=== PATIENT | female | born 1945 | race Caucasian/White ===

== ENCOUNTER 2016-08-05 22:44 | Inpatient (IN) | payer MEDICARE, OTHER ==
[~2016-08-05] VITALS: Ht 162.6 cm; Wt 42.9 kg
[~2016-08-05 22:44] MED LIST: DONE23TA PO; DULO30CA45 PO; GABA250S2 PO; LEVO300T5 PO; LISI10TA2 PO; METO-53 PO; OLAN5TAB5 PO; WARF2TAB PO
--- NOTE | 2016-08-05 23:03 | ERD ---
ER Documentation Chief Complaint Date/Time DATE: 08/05/16 TIME: 23:02 Chief Complaint HPI Patient is a 71-year-old female with severe Lewy body dementia [facility] being [facility]lod[facility]. Unable to obtain additional history due to history unavailable from [facility] and patient nonverbal. According to LAURA prater , the only caregiver at the [facility]ci did not speak Kenyan, and was unable to provide documentation of patient's past medical history. ROS All systems reviewed and are negative except as per history of present illness. Medications Home Meds Reported Medications Gabapentin* (Gabapentin* Liq) 250 Mg/5 Ml Solution, 200 MG PO TID 01/31/13 Warfarin Sodium* (Coumadin*) 2 Mg Tablet, 2 MG PO DAILY 01/31/13 Olanzapine* (Zyprexa*) 5 Mg Tablet, 5 MG PO HS 01/31/13 Metoprolol (Lopressor) 50 Mg Tablet, 50 MG PO HS 01/31/13 Lisinopril* (Lisinopril*) 10 Mg Tablet, 40 MG PO DAILY 01/31/13 Levothyroxine Sodium* (Levothyroxine Sodium*) 300 Mcg Tablet, 75 MCG PO DAILY 01/31/13 Donepezil* (Aricept*) 23 Mg Tablet, 10 MG PO DAILY 01/31/13 Duloxetine Hcl* (Cymbalta*) 30 Mg Capsule.dr, 30 MG PO DAILY 01/31/13 Allergies Allergies: Coded Allergies: No Known Allergy (Unverified , 02/02/13) PMhx/Soc Past medical history obtained from prior visit: Atrial fibrillation, Lewy body dementia, hypertension, hypothyroidism Past surgical history: G-tube, hip replacement Social history: Lives in a fci. History of Surgery: Yes (cholecystectomyk, , s/p angioplasty) Anesthesia Reaction: No Hx Neurological Disorder: Yes (PSYCHOSIS, DEPRESSION) Hx Respiratory Disorders: No Hx Cardiac Disorders: Yes (htn) Hx Psychiatric Problems: Yes (PSYCHOSIS, DEPRESSION) Hx Alcohol Use: No Hx Substance Use: No Hx Tobacco Use: No FmHx Unable to obtain Physical Exam Vitals Vital Signs Date Time Temp Pulse Resp B/P Pulse Ox O2 Delivery O2 Flow Rate FiO2 08/06/16 02:20 114 17 119/99 93 Room Air 08/06/16 01:00 87 16 92/72 95 Room Air 08/06/16 00:00 78 14 116/76 98 08/05/16 22:45 97.2 88 18 110/69 100 Physical Exam Const: Nonverbal, makes eye contact Head: Atraumatic Eyes: Normal Conjunctiva, no pallor or icterus ENT: Normal External Ears, Nose and Mouth. Tacky mucous membranes Neck: Full range of motion. Resp: Clear to auscultation bilaterally, no wheezes, no rales Cardio: Regular rate and rhythm, no murmurs Abd: Soft, non tender, non distended. Right-sided subcostal scar. Stoma is crusted and completely closed. Skin: No petechiae or rashes Ext: No cyanosis, or edema Neur: Awake and alert, unable to perform full exam due to patient not following directions Psych: Flat affect Result Diagram: 08/05/16 2335 08/05/16 2335 Results 24 hrs Laboratory Tests Test 08/05/16 23:35 08/06/16 00:05 White Blood Count 7.810^3/ul Red Blood Count 3.8310^6/ul Hemoglobin 13.4g/dl Hematocrit 39.7% Mean Corpuscular Volume 103.7fl Mean Corpuscular Hemoglobin 35.0pg Mean Corpuscular Hemoglobin Concent 33.8g/dl Red Cell Distribution Width 13.3% Platelet Count 64270^3/UL Mean Platelet Volume 13.0fl Neutrophils % 66.0% Lymphocytes % 23.2% Monocytes % 7.2% Eosinophils % 2.4% Basophils % 0.9% Nucleated Red Blood Cells % 0.0/100WBC Neutrophils # 5.210^3/ul Lymphocytes # 1.810^3/ul Monocytes # 0.610^3/ul Eosinophils # 0.210^3/ul Basophils # 0.110^3/ul Nucleated Red Blood Cells # 0.010^3/ul Prothrombin Time 13.2Sec Prothrombin Time Ratio 1.0 INR International Normalized Ratio 1.00 Activated Partial Thromboplast Time 27.2Sec Sodium Level 139mmol/L Potassium Level 3.6mmol/L Chloride Level 103mmol/L Carbon Dioxide Level 32mmol/L Anion Gap 8 Blood Urea Nitrogen 21mg/dl Creatinine 0.65mg/dl Glucose Level 98mg/dl Calcium Level 9.1mg/dl Prealbumin 17.2mg/dl Vitamin B12 Level Pending Urine Color LT. YELLOW Urine Clarity CLEAR Urine pH 7.0 Urine Specific [place] 1.010 Urine Ketones NEGATIVE Urine Nitrite NEGATIVE Urine Bilirubin NEGATIVE Urine Urobilinogen 2.0 E.U./dL Urine Leukocyte Esterase 2+ Urine Microscopic RBC 0-2/HPF Urine Microscopic WBC 10-25/HPF Urine Squamous Epithelial Cells MODERATE Urine Bacteria MANY Urine Yeast MODERATE Urine Hemoglobin NEGATIVE Urine Glucose NEGATIVE% Urine Total Protein NEGATIVE Current Medications Medications (Trade) Dose Ordered Sig/Colten Route PRN Reason Start Time Stop Time Status Last Admin Dose Admin Haloperidol (Haldol) 2 mg ONCE ONCE IV 08/06/16 02:30 08/06/16 02:31 DC 08/06/16 02:20 Procedures/MDM MDM: Patient is a 71-year-old female with fluid body dementia and a gastrostomy tube that was dislodged at an unknown time. The stoma has since closed and I am unable to place a new G-tube in the ER. I will therefore admit the patient for replacement of G-tube. Patient was given IV antibiotics for UTI. There are no signs of sepsis. IV fluids were given. Departure Diagnosis: Primary Impression: Dislodged gastrostomy tube Additional Impression: UTI (urinary tract infection) Indwelling urinary catheter type: unspecified Encounter type: initial encounter Condition: Stable JARED RICHARDS MD Aug 05, 2016 23:03 (Rocephin) 50 ml @ 100 mls/hr ONCE ONCE IVPB 08/06/16 03:00 08/06/16 03:29 DC 08/06/16 03:08 Lorazepam 1 mg 1 mg ONCE ONCE IV 08/06/16 04:30 08/06/16 04:31 DC 08/06/16 04:37 Potassium Chloride/Dextrose/ Sod Cl (D5-1/2ns + KCl 20 Meq) 1,000 ml @ 60 mls/hr [id number] IV 08/06/16 05:03 IV Flush (NS 3 ml) 3 ml PER PROTOCOL IV 08/06/16 05:30 Metoclopramide HCl (Reglan) 10 mg Q6H PRN IV NAUSEA AND/OR VOMITING 08/06/16 05:30 Acetaminophen (Tylenol Tab) 650 mg Q6H PRN PO PAIN LEVEL 1-3 OR FEVER 08/06/16 05:30 Morphine Sulfate (morphine) 2 mg Q4H PRN IV SEVERE PAIN LEVEL 7-10 08/06/16 05:30 Famotidine (Pepcid Iv) 20 mg Q12 IV 08/06/16 09:00 Departure Condition: Stable JARED RICHARDS MD Aug 05, 2016 23:03
[2016-08-05 23:40] LABS: ADD SCAN DIFF NO
[2016-08-05 23:42] LABS: BASOPHIL # 0.1 10^3/ul (0.0-0.1); BASOPHILS % 0.9 % (0.0-2.0); EOSINOPHILS # 0.2 10^3/ul (0.0-0.5); EOSINOPHILS % 2.4 % (0.0-7.0); HEMATOCRIT 39.7 % (37.0-47.0); HEMOGLOBIN 13.4 g/dl (12.0-16.0); LYMPHOCYTES # 1.8 10^3/ul (0.8-2.9); LYMPHOCYTES % 23.2 % (15.0-51.0); MEAN CORPUSCULAR HGB CONC 33.8 g/dl (32.0-37.0); MEAN CORPUSCULAR VOLUME 103.7 fl (82.0-101.0); MONOCYTE # 0.6 10^3/ul (0.3-0.9); MONOCYTES % 7.2 % (0.0-11.0); NEUTROPHIL # 5.2 10^3/ul (1.6-7.5); PLATELET COUNT 181 10^3/UL (140-415); RED BLOOD COUNT 3.83 10^6/ul (4.20-5.40); RED CELL DISTRIBUTION WIDTH 13.3 % (11.5-14.5); WHITE BLOOD COUNT 7.8 10^3/ul (4.8-10.8)
[2016-08-05 23:52] LABS: CALCIUM 9.1 mg/dl (8.4-10.2); CREATININE 0.65 mg/dl (0.44-1.00); PARTIAL THROMBOPLASTIN TIME 27.2 Sec (25.0-35.0); POTASSIUM 3.6 mmol/L (3.5-5.1); PROTIME 13.2 Sec (12.2-14.2)
[2016-08-06] VITALS (8 sets, daily range): BP systolic 125–188; BP diastolic 57–100; PULSE 49–121; RESP 16–20; TEMP 97.8; Ht 162.6 cm; Wt 42.9 kg
[2016-08-06 01:22] LABS: ADD UMIC YES; URINE BILIRUBIN (Dip) NEGATIVE (NEGATIVE); URINE BLOOD (Dip) NEGATIVE (NEGATIVE); URINE COLOR LT. YELLOW (YELLOW); URINE GLUCOSE (Dip) NEGATIVE (NEGATIVE); URINE KETONES (Dip) NEGATIVE (NEGATIVE); URINE LEUKOCYTE ESTERASE (Dip) 2+ (NEGATIVE); URINE NITRITE (Dip) NEGATIVE (NEGATIVE); URINE TOTAL PROTEIN (Dip) NEGATIVE (NEGATIVE); URINE UROBILINOGEN (Dip) 2.0 E.U./dL (0.1-1.0)
[2016-08-06] MEDS ORDERED: HALOPERIDOL 5 MG INJ IV ONE (02:30)
[2016-08-06 02:37] LABS: BACTERIA,URINE MANY
[2016-08-06 02:38] LABS: SQUAMOUS EPITHELIAL CELL,UR MODERATE
[2016-08-06 02:39] LABS: URINE RBCS 0-2 /HPF (0)
--- NOTE | 2016-08-06 02:55 | HP ---
Date/Time of Note Date/Time of Note DATE: 08/06/16 TIME: 02:54 Assessment/Plan VTE Prophylaxis VTE Prophylaxis Intervention: anti-embolic stocking Assessment/Plan Assessment/Plan 1) Protein-Calorie Malnutrition - Resides at [facility], "G-Tube Came Out" , but it appears to have been out for an extended period of time. - Admit toMed Surg - Check Pre-Albumin and Cholesterol to test nutritional status - Dietary Consult - CONSULT: GI - Dr. Chua for g-Tube Placement - field irrigation worker Consult to ensure patient is safe at the [facility] and to get patint' records and notify her next of kin, perhaps there is a DNO or Adanced Directives somewhere. 2) Urinary Tract Infection - Bacteria and Yeast - Rocephin 1 gram IV daily while awaiting culture results. - Diflucan once weekly for 3 to 4 weeks, once GT is back in place 3) Oral Cancer - Find Old records to learn mor about her condition 4) Lewy Body Dementia - Rule out treatable Delirium - add on TSH,Vitamin B12l, RPR HPI/ROS Admit Date/Time Admit Date/Time 08/05/16 0252 Hx of Present Illness Patient is a 71-year-old female with severe Lewy body dementia sent from a residential for G-tube being dislodged. Unable to obtain additional history due to history unavailable from residential and patient nonverbal. According to LAURA prater , the only caregiver at the residential did not speak Kazakh or Georgian, and was unable to provide documentation of patient's past medical history. Hospital records are reviewed to obtain some hsitory. ROS Subjective hx not possible: pt non-verbal PMH/Family/Social Past Medical History Atrial Fibrillation; Lewy Body Dementia; Hypertension: Hypothyroidism; Depression; Psychosis Past Surgical History G-TubePlacement; Hip Replacement; Cholecystectomy; s/p Angioplasty Social History Social history: Lives in a residential. Alcohol Use: none Smoking Status: Never smoker Drug Use: none Exam/Review of Systems Vital Signs Vitals Vital Signs Date Time Temp Pulse Resp B/P Pulse Ox O2 Delivery O2 Flow Rate FiO2 08/06/16 02:20 114 17 119/99 93 Room Air 08/05/16 22:45 97.2 Exam Exam General: Alert, cachectic female, in no acute distress. who recently received Haldol, per RN, to help calm her down Eyes: Sclera White HENT: Normocephalic/Atraumatic, External Ears/Nose Normal, Moout remains open the entire time. Lips and oral ucosa are dry and a bit cracked. Not bleeding. Also, there is a 3cm patch of black tissue/eschar/necroses on the distal inferior aspect of her tongue. Neck: Supple, Trachea Midline Cardiovascular: Normal Rate, Regular Rhythm, Normal S1 and S2, No Murmur, No Extra Sounds. Radial pulse +2/4. No pedal Edema. Pulmonary: Clear to Auscultation Bilaterally, Normal Respiratory Effort, No Rales, Rhonchi or Wheezes Gastrointestinal: Scaphoid abdomen, Normoactive Bowel Sounds, Soft, Non-Tender/ Non-Distended, No Hepatosplenomegaly Appreciated, No Pulsatile Masses Urogenital: Deferred Musculoskeletal: Wasted Muscle and only fair Tone Neurological: CN II - XII Grossly Intact, Non-Focal/moves all 4 extremities Integumentary: Normal Moisture and Temperature, Poor Turgor/Easy/prolonged tenting. No Jaundice, No Rash Lymphatic: No Cervical Lymphadenopathy Psychiatric: Diffiult to assess as patient is non-verbal and recently medcated. Good Eye Contact Labs Result Diagram: 08/05/16 2335 08/05/16 2335 Medications Medications Home Meds Reported Medications Gabapentin* (Gabapentin* Liq) 250 Mg/5 Ml Solution, 200 MG PO TID 01/31/13 Warfarin Sodium* (Coumadin*) 2 Mg Tablet, 2 MG PO DAILY 01/31/13 Olanzapine* (Zyprexa*) 5 Mg Tablet, 5 MG PO HS 01/31/13 Metoprolol (Lopressor) 50 Mg Tablet, 50 MG PO HS 01/31/13 Lisinopril* (Lisinopril*) 10 Mg Tablet, 40 MG PO DAILY 01/31/13 Levothyroxine Sodium* (Levothyroxine Sodium*) 300 Mcg Tablet, 75 MCG PO DAILY 01/31/13 Donepezil* (Aricept*) 23 Mg Tablet, 10 MG PO DAILY 01/31/13 Duloxetine Hcl* (Cymbalta*) 30 Mg Capsule., 30 MG PO NATHANIEL WEINBERG DO Aug 06, 2016 02:55
[2016-08-06] MEDS ORDERED: ACETAMINOPHEN 325 MG TAB PO PRN ×2 (03:00→05:30)
[2016-08-06] MEDS ORDERED: ONDANSETRON 4 MG INJ IV PRN (03:00)
[2016-08-06] MEDS ORDERED: CEFTRIAXONE 1 GM/50 ML (PMX) 50 ML IVPB ONE (03:00)
[2016-08-06] MEDS ORDERED: LORAZEPAM 2 MG INJ IV ONE ×2 (04:30→22:00)
[2016-08-06 04:52] LABS: PREALBUMIN 17.2 mg/dl (17.6-36.0)
[2016-08-06] MEDS ORDERED: METOCLOPRAMIDE 10 MG INJ IV PRN (05:30)
[2016-08-06] MEDS ORDERED: NACL 0.9% 3 ML SYG IV SCH (05:30)
[2016-08-06] MEDS: D5W-0.45 NACL + KCL 20 MEQ 1,000 ML IV SCH ×2 (05:40→23:48)
[2016-08-06] MEDS: FAMOTIDINE 20 MG INJ IV SCH ×2 (09:07→21:12)
[2016-08-06 09:58] LABS: CHOL/HDL RATIO 2.8 RATIO
--- NOTE | 2016-08-06 11:13 | CONS ---
Date/Time of Note Date/Time of Note DATE: 08/06/16 TIME: 10:54 Assessment/Plan Assessment/Plan Additional Assessment/Plan Dysphagia Order Nutrition consult to determine rate and type of G tube feed EGD + PEG Monitor tube feed Q6hrs, hold for residuals greater 150 mL Cleanse site and change dressing daily Lewy Body Dementia Psychosis Management per Primary Hypothyroidism Continue supplementation per primary Hypertension Atrial Fibrillation History of angioplasty Management per primary May benefit from cardiology consult Previously on warfarin Further recommendations depend on clinical course Patient seen in collaboration with Dr. Chua Consultation Date/Type/Reason Admit Date/Time Type of Consultation: Gastroenterology Reason for Consultation Dysphagia, dislodged G-tube Hx of Present Illness Mrs. Evie Russell is a 71-year-old nonverbal woman that [facility] [place] [facility] secondary to dislodgment of G-tube. At bedside patient is profoundly confused and unable to provide concise medical history. Per previous note, patient has history of severe Lewy body dementia, atrial fibrillation on warfarin, hypertension, hypothyroidism on Levoxyl thyroxine, depression, psychosis, status post cholecystectomy, status post hip replacement , status post angioplasty, and status post G-tube placement. Medical record notes atrial fibrillation and warfarin 2 mg p.o. daily but unsure last given. Patient may benefit from cardiology consult. Presently INR 1.0 and PT 13.2. At bedside, incision from the former G-tube is well healed and unsure of exactly how long tube has been dislodged Past Surgical History Past Surgical Hx: angioplasty, cholecystectomy, other (G-tube placement, hip replacement) Social History Alcohol Use: none Smoking Status: Never smoker Drug Use: none Exam/Review of Systems Vital Signs Vitals Vital Signs Date Time Temp Pulse Resp B/P Pulse Ox O2 Delivery O2 Flow Rate FiO2 08/06/16 09:20 98.4 81 18 148/66 90 Room Air Exam Constitutional: Awake, confused, Psych: Confused Head: normocephalic Eyes: EOMI, nl conjunctiva, nl lids ENMT: nl external ears & nose, missing teeth with very dry lips, nl nasal mucosa & septum Respiratory: clear to auscultation, normal air movement Cardiovascular: regular rate and rhythm Gastrointestinal: soft, nontender Musculoskeletal: nl extremities to inspection Neurological: Grossly nonfocal Results Result Diagram: 08/05/16 9285 08/05/16 2335 Results 24 hrs Laboratory Tests Test 08/05/16 23:35 08/06/16 00:05 08/06/16 09:15 White Blood Count 7.8 Red Blood Count 3.83 L Hemoglobin 13.4 Hematocrit 39.7 Mean Corpuscular Volume 103.7 H Mean Corpuscular Hemoglobin 35.0 H Mean Corpuscular Hemoglobin Concent 33.8 Red Cell Distribution Width 13.3 Platelet Count 181 Mean Platelet Volume 13.0 H Neutrophils % 66.0 Lymphocytes % 23.2 Monocytes % 7.2 Eosinophils % 2.4 Basophils % 0.9 Nucleated Red Blood Cells % 0.0 Neutrophils # 5.2 Lymphocytes # 1.8 Monocytes # 0.6 Eosinophils # 0.2 Basophils # 0.1 Nucleated Red Blood Cells # 0.0 Prothrombin Time 13.2 Prothrombin Time Ratio 1.0 INR International Normalized Ratio 1.00 Activated Partial Thromboplast Time 27.2 Sodium Level 139 Potassium Level 3.6 Chloride Level 103 Carbon Dioxide Level 32 H Anion Gap 8 Blood Urea Nitrogen 21 H Creatinine 0.65 Glucose Level 98 Calcium Level 9.1 Prealbumin 17.2 L 16.4 L Vitamin B12 Level 870 Vitamin D 1,25-Dihydroxy 17.1 L Thyroid Stimulating Hormone (TSH) 12.700 H Urine Color LT. YELLOW Urine Clarity CLEAR Urine pH 7.0 Urine Specific [place] 1.010 Urine Ketones NEGATIVE Urine Nitrite NEGATIVE Urine Bilirubin NEGATIVE Urine Urobilinogen 2.0 E.U./dL H Urine Leukocyte Esterase 2+ H Urine Microscopic RBC 0-2 Urine Microscopic WBC 10-25 Urine Squamous Epithelial Cells MODERATE Urine Bacteria MANY Urine Yeast MODERATE Urine Hemoglobin NEGATIVE Urine Glucose NEGATIVE Urine Total Protein NEGATIVE Triglycerides Level 102 Cholesterol Level 132 LDL Cholesterol, Calculated 66 HDL Cholesterol 46 Cholesterol/HDL Ratio 2.8 Medications Medications Current Medications Potassium Chloride/Dextrose/ Sod Cl (D5-1/2ns + KCl 20 Meq) 1,000 ml @ 60 mls/ hr [id number] IV Last administered on 08/06/16t 05:40; Admin Dose 60 MLS/HR; Start 08/06/16 at 05:03 Metoclopramide HCl (Reglan) 10 mg Q6H PRN IV NAUSEA AND/OR VOMITING; Start 08/06 at 05:30 Acetaminophen (Tylenol Tab) 650 mg Q6H PRN PO PAIN LEVEL 1-3 OR FEVER; Start at 05:30 Morphine Sulfate (morphine) 2 mg Q4H PRN IV SEVERE PAIN LEVEL 7-10; Start at 05:30 Famotidine (Pepcid Iv) 20 mg Q12 IV Last administered on 08/06/16t 09:07; Admin Dose 20 MG; Start 08/06/16 at 09:00 LELA SOOD Aug 06, 2016 11:06
--- NOTE | 2016-08-06 16:13 | PN ---
DATE: 08/06/2016 INTERNAL MEDICINE FOLLOW UP Chart reviewed. No significant events. The patient was seen by GI earlier today and is planned to undergo G-tube placement tomorrow. PHYSICAL EXAMINATION: VITAL SIGNS: Blood pressure 148/66, pulse 81, respirations 18, temperature 98.4. Currently saturat ing 98% on room air. HEENT: Pupils are equal and reactive to light. NECK: Supple, no JVD noted, no cervical adenopathy, no carotid bruits heard. LUNGS: Fair breath sounds bilaterally. CARDIOVASCULAR: S1, S2 normal. ABDOMEN: Soft, nontender. No organomegaly or masses noted. EXTREMITIES: No clubbing or cyanosis noted. NEUROLOGIC: No changes. LABORATORY DATA: Sodium 139, potassium 3.6, chloride 103, CO2 32, BUN 21, creatinine 0.65, glucose 98. WBC 7.8, hemoglobin 13.4, hematocrit 39.7, platelets 181. IMPRESSION: 1. Dislodged G-tube. 2. Lewy body dementia. 3. Urinary tract infection. 4. History of oral cancer. RECOMMENDATIONS: 1. Gastrointestinal evaluation appreciated. 2. Patient will undergo G-tube placement tomorrow. 3. Discussed with the staff. Dictated By: KEITH BUITRAGO MD, MA/ROSA Conf#: [id number] DID#: [id number] CC: NATHANIEL BEE MD;*EndCC*
[2016-08-06] MEDS ORDERED: LORAZEPAM 2 MG INJ ONE (21:44)
[2016-08-06 21:46] LABS: ADD SCAN DIFF NO
[2016-08-06 21:47] LABS: BASOPHIL # 0.1 10^3/ul (0.0-0.1); BASOPHILS % 0.7 % (0.0-2.0); EOSINOPHILS # 0.1 10^3/ul (0.0-0.5); EOSINOPHILS % 0.9 % (0.0-7.0); HEMATOCRIT 36.9 % (37.0-47.0); HEMOGLOBIN 12.3 g/dl (12.0-16.0); LYMPHOCYTES # 1.8 10^3/ul (0.8-2.9); LYMPHOCYTES % 20.3 % (15.0-51.0); MEAN CORPUSCULAR HEMOGLOBIN 34.5 pg (29.0-33.0); MEAN CORPUSCULAR HGB CONC 33.3 g/dl (32.0-37.0); MEAN CORPUSCULAR VOLUME 103.4 fl (82.0-101.0); MEAN PLATELET VOLUME 12.1 fl (7.4-10.4); MONOCYTE # 0.6 10^3/ul (0.3-0.9); MONOCYTES % 6.9 % (0.0-11.0); NEUTROPHIL # 6.3 10^3/ul (1.6-7.5); PLATELET COUNT 176 10^3/UL (140-415); RED BLOOD COUNT 3.57 10^6/ul (4.20-5.40); RED CELL DISTRIBUTION WIDTH 13.1 % (11.5-14.5); WHITE BLOOD COUNT 8.9 10^3/ul (4.8-10.8)
[2016-08-06 21:55] LABS: CHLORIDE 103 mmol/L (97-110)
[2016-08-06 21:56] LABS: POTASSIUM 3.4 mmol/L (3.5-5.1); SODIUM 142 mmol/L (135-144)
[2016-08-06 21:58] LABS: CREATININE 0.67 mg/dl (0.44-1.00)
[2016-08-06 21:59] LABS: ANION GAP 13 (8-16); BLOOD UREA NITROGEN 19 mg/dl (7-20); CALCIUM 8.9 mg/dl (8.4-10.2); CARBON DIOXIDE 29 mmol/L (21-31); GLUCOSE 118 mg/dl (70-220); MAGNESIUM 1.9 mg/dl (1.7-2.5)
[2016-08-06 22:08] LABS: B-TYPE NATRIURETIC PEPTIDE 2060 PG/ML (0-125)
[2016-08-06 22:15] LABS: TROPONIN-I < 0.012 ng/ml (0.00-0.12)
--- NOTE | 2016-08-06 23:06 | EN ---
Date/Time of Note Date/Time of Note DATE: 08/06/16 TIME: 23:06 Event Note Medicine Medicine Event Note RAPID RESPONSE TEAM: Called to [employer] at 2101 due to oxygen saturation dropped to 84%. She was placed on a simple mask at 10 LPM and her sat came up to 100%. On my arrival, patient was alert and moving all 4 extremities, sitting up in bed wearing the mask. Her vital signs were 135/61 - 51 - 97.6 - 100%. Glucose = 82. Her HR varied from 70 to 139. Her sat dropped to 89% and we placed her on a Non-Rebreather at 15 LPM. Her hands felt cold, but they were not blue. No central cyanosis. We were able to determine that the Pulse Oximiter was missing every other beat. The Pulse-Ox was measuring 56 BPM while the hear monitor, now in place showed a rate of 117. We tried another pulse ox and an ear probe was not available, so the rRN used a conforming finger probe on the ear lobe. About this time, the ABG anabel was already drawn came back with a pH of 7.53, CO2 33, pO2 360, HCO3 27.1, BE 4.6 when she was on a simple mask, O2 Sat 99%. I ordered a CBC, BMP, BNP, D-Dimer, Mg and Phos and made arrangements to transfer her to [facility]. At 2134, her ear probe demonstrated saturation of 100%. At 2144, she was restless and she was given Ativan 0.5 mg IV. EKG showed A-fib with RVR at 129. I accompanied her to the ICU with plans for Cardizem to be administered. During the entire event, she remained alert and was never cyanotic. I did learn from her daughter, Rosamaria (her name and number were on the board) when I called her to update her on her mom's condition that she had her on Hospice and that she was a DNR and did not want to be intubated. Also, her daughter had no knowledge of any oral cancer. SHe has Lewy Body Dementia and has been deteriorating, significantly over the past 2 months.Rosamaria is 1 of 6 siblings, and is the only one taking care of their mother. Critical Care Time: 35 minutes in responding to, assessing, treating, monitoring and coordinating care of patient. NATHANIEL BEE DO Aug 06, 2016 23:06
[2016-08-07] VITALS (17 sets, daily range): BP systolic 104–174; BP diastolic 58–128; PULSE 77–201; RESP 17–20
[2016-08-07] MEDS: CEFTRIAXONE 1 GM/50 ML (PMX) 50 ML IVPB SCH (02:50)
[2016-08-07 07:37] LABS: ADD SCAN DIFF NO
[2016-08-07 07:42] LABS: BASOPHIL # 0.1 10^3/ul (0.0-0.1); BASOPHILS % 0.7 % (0.0-2.0); EOSINOPHILS # 0.2 10^3/ul (0.0-0.5); EOSINOPHILS % 3.4 % (0.0-7.0); HEMATOCRIT 36.5 % (37.0-47.0); LYMPHOCYTES # 1.4 10^3/ul (0.8-2.9); MEAN CORPUSCULAR HEMOGLOBIN 34.5 pg (29.0-33.0); MEAN CORPUSCULAR HGB CONC 32.9 g/dl (32.0-37.0); MEAN CORPUSCULAR VOLUME 104.9 fl (82.0-101.0); MEAN PLATELET VOLUME 13.4 fl (7.4-10.4); MONOCYTE # 0.5 10^3/ul (0.3-0.9); MONOCYTES % 7.2 % (0.0-11.0); NEUTROPHIL # 4.8 10^3/ul (1.6-7.5); NEUTROPHILS % 68.6 % (39.0-77.0); PLATELET COUNT 156 10^3/UL (140-415); RED BLOOD COUNT 3.48 10^6/ul (4.20-5.40); RED CELL DISTRIBUTION WIDTH 13.4 % (11.5-14.5); WHITE BLOOD COUNT 7.1 10^3/ul (4.8-10.8)
[2016-08-07 07:58] LABS: INR 1.05; PARTIAL THROMBOPLASTIN TIME 28.6 Sec (25.0-35.0); POTASSIUM 3.2 mmol/L (3.5-5.1); PROTIME 13.7 Sec (12.2-14.2); PT RATIO 1.1
[2016-08-07 08:01] LABS: CREATININE 0.6 mg/dl (0.44-1.00)
[2016-08-07 08:02] LABS: CALCIUM 8.6 mg/dl (8.4-10.2)
[2016-08-07 10:23] LABS: AADO2 Arterial 38.2 mmHg (7.0-24.0); Allen Test ACCEPTAB; Arterial Base Excess 4.6 mmol/L (-3.0-3); Arterial COHb 0.3 % (0.0-3.0); Arterial Fraction of Oxyhgb 98.7 % (93.0-99.0); Arterial HCO3 27.1 mmol/L (22.0-26.0); Arterial MetHb 0.4 % (0.0-1.5); Arterial Total Hemglobin 12.9 g/dl (12.0-18.0); MODE MASK - SIMPLE
[2016-08-07] MEDS: LORAZEPAM 2 MG INJ IV PRN (10:54)
[2016-08-07] MEDS: FAMOTIDINE 20 MG INJ IV SCH ×2 (10:54→20:23)
[2016-08-07] MEDS: DILTIAZEM-D5W 125MG/125ML DRIP 125 ML IV SCH ×2 (10:58→20:23)
--- NOTE | 2016-08-07 10:59 | PN ---
Date/Time of Note Date/Time of Note DATE: 08/07/16 TIME: 10:51 Assessment/Plan VTE Prophylaxis VTE Prophylaxis Intervention: SCD's Lines/Catheters IV Catheter Type (from Nrs): Peripheral IV Urinary Cath still in place: Yes Reason Cath still needed: urinary retention Assessment/Plan Chief Complaint/Hosp Course Assessment/Plan: 71F with: 1. Protein-Calorie Malnutrition - Resides at [facility] and [facility], "G-Tube Came Out" , but it appears to have been out for an extended period of time. - f/u Pre-Albumin and Cholesterol to test nutritional status - Dietary Consult - CONSULT: GI - Dr. Chua for g-Tube Placement - pending for this placement - welfare eligibility worker Consult to ensure patient is safe at the [facility] and to get patent's records 2. afib w/RVR - presently not controlled - will start cardizem IV drip, get CV consult, ECHO - monitor INR (takes Coumadin at home) 3. Urinary Tract Infection - Bacteria and Yeast - Rocephin 1 gram IV daily while awaiting culture results. - Diflucan once weekly for 3 to 4 weeks, once GT is back in place 4. Oral Cancer - Find Old records to learn more about her condition 5. Lewy Body Dementia - Rule out treatable Delirium - f/u TSH,Vitamin B12l, RPR - ativan cautiously prn Problems: Subjective 24 Hr Interval Summary Free Text/Dictation Pt transferred to tele after afib w RVR, presently still high HR and altered, trying to get out of bed. Exam/Review of Systems Vital Signs Vitals Vital Signs Date Time Temp Pulse Resp B/P Pulse Ox O2 Delivery O2 Flow Rate FiO2 08/07/16 09:36 195 08/07/16 08:25 Simple Mask 8.0 08/07/16 08:17 99.0 18 132/89 92 Intake and Output 08/06/16 08/06/16 08/07/16 15:00 23:00 07:00 Intake Total 0 ml 710 ml Output Total 700 ml 500 ml Balance -700 ml 210 ml Exam HEENT: Agitated, trying to get out of bed, pupils are equal and reactive to light. NECK: Supple, no JVD noted, no cervical adenopathy, no carotid bruits heard. LUNGS: Fair breath sounds bilaterally. CARDIOVASCULAR: irregularly irregular, tachy ABDOMEN: Soft, nontender. No organomegaly or masses noted. EXTREMITIES: No clubbing or cyanosis noted. NEUROLOGIC: No changes. Results Result Diagram: 08/07/16 0630 08/07/16 0630 Results 24 hrs Laboratory Tests Test 08/06/16 21:10 08/06/16 21:17 08/06/16 21:41 08/07/16 06:30 Bedside Glucose 82 Blood Gas Specimen Source Blood arterial Arterial Blood Date Drawn 08/06/2016 9:15:00 PM Arterial Blood pH (Temp corrected) 7.529 H Arterial Blood pCO2 (Temp correct) 33.2 L Arterial Blood pO2 (Temp corrected) 360.3 H Arterial Blood HCO3 27.1 H Arterial Blood Base Excess 4.6 H Arterial Blood Oxygen Saturation 99.4 H Oswaldo Test ACCEPTAB Arterial Blood Gas Puncture Site Right Radial Arterial Blood Carboxyhemoglobin 0.3 Arterial Blood Methemoglobin 0.4 Blood Gas A-a O2 Differential 38.2 H Oxyhemoglobin Percent 98.7 Total Hemoglobin 12.9 Blood Gas Temperature 37.0 Blood Gas Modality MASK - SIMPLE FiO2 61.0 Blood Gas Critical Value Read Back NATHANIEL BEE M.D. Blood Gas Notified Whom BR Blood Gas Notified Time 08/06/2016 9:27:00 PM White Blood Count 8.9 7.1 # Red Blood Count 3.57 L 3.48 L Hemoglobin 12.3 12.0 Hematocrit 36.9 L 36.5 L Mean Corpuscular Volume 103.4 H 104.9 H Mean Corpuscular Hemoglobin 34.5 H 34.5 H Mean Corpuscular Hemoglobin Concent 33.3 32.9 Red Cell Distribution Width 13.1 13.4 Platelet Count 176 156 Mean Platelet Volume 12.1 H 13.4 H Neutrophils % 71.0 68.6 Lymphocytes % 20.3 20.0 Monocytes % 6.9 7.2 Eosinophils % 0.9 3.4 Basophils % 0.7 0.7 Nucleated Red Blood Cells % 0.0 0.0 Neutrophils # 6.3 4.8 Lymphocytes # 1.8 1.4 Monocytes # 0.6 0.5 Eosinophils # 0.1 0.2 Basophils # 0.1 0.1 Nucleated Red Blood Cells # 0.0 0.0 D-Dimer 1474.00 H D-Dimer Comment Sodium Level 142 141 Potassium Level 3.4 L 3.2 L Chloride Level 103 104 Carbon Dioxide Level 29 28 Anion Gap 13 12 Blood Urea Nitrogen 19 17 Creatinine 0.67 0.60 Glucose Level 118 110 Calcium Level 8.9 8.6 Phosphorus Level 3.0 Magnesium Level 1.9 Troponin I < 0.012 B-Type Natriuretic Peptide 2060 H Prothrombin Time 13.7 Prothrombin Time Ratio 1.1 INR International Normalized Ratio 1.05 Activated Partial Thromboplast Time 28.6 Medications Medications Current Medications Potassium Chloride/Dextrose/ Sod Cl (D5-1/2ns + KCl 20 Meq) 1,000 ml @ 60 mls/ hr [id number] IV Last administered on 08/06/16 23:48; Admin Dose 60 MLS/HR; Start 08/06/16 at 05:03 Metoclopramide HCl (Reglan) 10 mg Q6H PRN IV NAUSEA AND/OR VOMITING; Start 08/06 at 05:30 Acetaminophen (Tylenol Tab) 650 mg Q6H PRN PO PAIN LEVEL 1-3 OR FEVER; Start at 05:30 Morphine Sulfate (morphine) 2 mg Q4H PRN IV SEVERE PAIN LEVEL 7-10; Start at 05:30 Famotidine 20 mg 20 mg Q12 IV Last administered on 08/06/16 21:12; Admin Dose 20 MG; Start 08/06/16 at 09:00 Ceftriaxone Sodium 50 ml @ 100 mls/hr Q24H IVPB Last administered on 02:50; Admin Dose 100 MLS/HR; Start 08/07/16 at 03:00 Diltiazem HCl (Cardizem-D5W 125 Mg/125 ml Drip) 125 ml @ 5 mls/hr TITRATE IV ; Start 08/07/16 at 11:00 Lorazepam (Ativan) 1 mg Q6H PRN IV AGITATION/ANXIETY; Start 08/07/16 at 11:00 KARUNA ALDRICH Aug 07, 2016 10:59
[2016-08-07] MEDS ORDERED: CEFAZOLIN 1 GM/50 ML (PMX) 50 ML IVPB ONE (12:00)
--- NOTE | 2016-08-07 13:43 | CONS ---
Date/Time of Note Date/Time of Note DATE: 08/07/16 TIME: 13:35 Assessment/Plan Assessment/Plan Chief Complaint/Hosp Course Atrial fibrillation with RVR: Pt has been off her PO meds as her G-tube was dislodged. She cannot take PO and this is the reason for her RVR at this time. Of note on prior admissions, she has had intermittent episodes of RVR due to agitation which resolved with sedation and PO meds. ?Acute on chronic heart failure: Unknown EF as pt has cooperated with echo previously. Has some mild JVD and crackles. Will hold fluids Dysphagia s/p g-tube: now dislodged and family is considering if they want another g-tube UTI Dementia: Agitated intermittently -continue diltiazem drip (will convert to PO once g-tube is placed, previously was on dilt 240daily, metoprolol 50mg BID) -hold IVF -f/u echo -decision for g-tube per family/GI Problems: Consultation Date/Type/Reason Admit Date/Time Date of Consultation: Aug 07, 2016 Type of Consultation: Cardiology Reason for Consultation afib with RVR Hx of Present Illness 71 yo F known to me from multiple hospitalizations at [facility] for psychosis, with a h/o dementia, afib not on anticoagulation due to underlying intermittent psychosis, dysphagia s/p G-tube, who presented secondary to dislodgement of her G-tube. The pt is unable to provide history. The plan was for replacement of her G-tube but per RN the family is deciding is they would want that or not. In the meantime, the pt has been having afib with RVR for which she was placed on diltiazem drip [facility] unable to obtain Past Surgical History Past Surgical Hx: angioplasty, cholecystectomy, other (G-tube placement, hip replacement) Social History Alcohol Use: none Smoking Status: Unknown if ever smoked Drug Use: none Exam/Review of Systems Vital Signs Vitals Vital Signs Date Time Temp Pulse Resp B/P Pulse Ox O2 Delivery O2 Flow Rate FiO2 08/07/16 12:32 98.1 90 20 133/77 100 08/07/16 08:25 Simple Mask 8.0 Intake and Output 08/06/16 08/06/16 08/07/16 14:59 22:59 06:59 Intake Total 0 ml 290 ml Output Total 700 ml 500 ml Balance -700 ml -210 ml Exam Constitutional: No alert, No oriented Head: atraumatic, normocephalic Neck: jvd (8cm) Respiratory: crackles/rales, diminished breath sounds, No clear to auscultation Cardiovascular: No edema, No regular rate and rhythm (IRIR, tachy) Gastrointestinal: non-tender, soft Neurological: No nl mental status, No nl speech Results Result Diagram: 08/07/16 0630 08/07/16 0630 Results 24 hrs Laboratory Tests Test 08/06/16 21:10 08/06/16 21:17 08/06/16 21:41 08/07/16 06:30 Bedside Glucose 82 Blood Gas Specimen Source Blood arterial Arterial Blood Date Drawn 08/06/2016 9:15:00 PM Arterial Blood pH (Temp corrected) 7.529 H Arterial Blood pCO2 (Temp correct) 33.2 L Arterial Blood pO2 (Temp corrected) 360.3 H Arterial Blood HCO3 27.1 H Arterial Blood Base Excess 4.6 H Arterial Blood Oxygen Saturation 99.4 H Oswaldo Test ACCEPTAB Arterial Blood Gas Puncture Site Right Radial Arterial Blood Carboxyhemoglobin 0.3 Arterial Blood Methemoglobin 0.4 Blood Gas A-a O2 Differential 38.2 H Oxyhemoglobin Percent 98.7 Total Hemoglobin 12.9 Blood Gas Temperature 37.0 Blood Gas Modality MASK - SIMPLE FiO2 61.0 Blood Gas Critical Value Read Back NATHANIEL BEE M.D. Blood Gas Notified Whom BR Blood Gas Notified Time 08/06/2016 9:27:00 PM White Blood Count 8.9 7.1 # Red Blood Count 3.57 L 3.48 L Hemoglobin 12.3 12.0 Hematocrit 36.9 L 36.5 L Mean Corpuscular Volume 103.4 H 104.9 H Mean Corpuscular Hemoglobin 34.5 H 34.5 H Mean Corpuscular Hemoglobin Concent 33.3 32.9 Red Cell Distribution Width 13.1 13.4 Platelet Count 176 156 Mean Platelet Volume 12.1 H 13.4 H Neutrophils % 71.0 68.6 Lymphocytes % 20.3 20.0 Monocytes % 6.9 7.2 Eosinophils % 0.9 3.4 Basophils % 0.7 0.7 Nucleated Red Blood Cells % 0.0 0.0 Neutrophils # 6.3 4.8 Lymphocytes # 1.8 1.4 Monocytes # 0.6 0.5 Eosinophils # 0.1 0.2 Basophils # 0.1 0.1 Nucleated Red Blood Cells # 0.0 0.0 D-Dimer 1474.00 H D-Dimer Comment Sodium Level 142 141 Potassium Level 3.4 L 3.2 L Chloride Level 103 104 Carbon Dioxide Level 29 28 Anion Gap 13 12 Blood Urea Nitrogen 19 17 Creatinine 0.67 0.60 Glucose Level 118 110 Calcium Level 8.9 8.6 Phosphorus Level 3.0 Magnesium Level 1.9 Troponin I < 0.012 B-Type Natriuretic Peptide 2060 H Prothrombin Time 13.7 Prothrombin Time Ratio 1.1 INR International Normalized Ratio 1.05 Activated Partial Thromboplast Time 28.6 Medications Medications Current Medications Potassium Chloride/Dextrose/ Sod Cl (D5-1/2ns + KCl 20 Meq) 1,000 ml @ 60 mls/ hr [id number] IV Last administered on 08/06/16 23:48; Admin Dose 60 MLS/HR; Start 08/06/16 at 05:03 Metoclopramide HCl (Reglan) 10 mg Q6H PRN IV NAUSEA AND/OR VOMITING; Start 08/06 at 05:30 Acetaminophen (Tylenol Tab) 650 mg Q6H PRN PO PAIN LEVEL 1-3 OR FEVER; Start at 05:30 Morphine Sulfate (morphine) 2 mg Q4H PRN IV SEVERE PAIN LEVEL 7-10; Start at 05:30 Famotidine 20 mg 20 mg Q12 IV Last administered on 08/07/16 10:54; Admin Dose 20 MG; Start 08/06/16 at 09:00 Ceftriaxone Sodium 50 ml @ 100 mls/hr Q24H IVPB Last administered on 02:50; Admin Dose 100 MLS/HR; Start 08/07/16 at 03:00 Diltiazem HCl (Cardizem-D5W 125 Mg/125 ml Drip) 125 ml @ 5 mls/hr TITRATE IV Last administered on 08/07/16 10:58; Admin Dose 5 MLS/HR; Start 08/07/16 at 11: 00 Lorazepam (Ativan) 1 mg Q6H PRN IV AGITATION/ANXIETY Last administered on 10:54; Admin Dose 1 MG; Start 08/07/16 at 11:00 RAFAEL SALGUERO Aug 07, 2016 13:43
--- NOTE | 2016-08-07 14:30 | RADRPT ---
PROCEDURE: XR Chest. CLINICAL INDICATION: Preoperative for placement of gastrostomy tube. TECHNIQUE: Single frontal view. COMPARISON: 02/12/2013. FINDINGS: The lungs are clear. The heart is enlarged. There is calcification in the aorta consistent with atherosclerosis. Surgic al clips are present in the right axillary region. There is no pleural effusion. There is no pneumothorax. IMPRESSION: 1. Cardiomegaly and atherosclerosis. 2. Prior right axillary surgery. 3. Clear lungs. RPTAT: QQ .Cal Ewing MD, MD Date Time Electronically viewed and signed by .Cal Ewing MD, MD on 08/07/2016 14:29 .R/
--- NOTE | 2016-08-07 14:50 | RADRPT ---
Echocardiogram Report Patient Name: EAGLE MANNING Gender: Female Date: 1945 Study Date: 07-Aug-2016 Awning Finisher: [facility] Location: 510 Ref. Physician: KARUNA ALDRICH Quality: Good Procedures: Transthoracic echocardiogram with complete 2D, M-Mode, and doppler examination. Indications: Atrial Fibrillation, RVR. 2D/M Mode Doppler Measurement Value Normal Ranges Measurement Value Normal Ranges LVIDd 2D 6.0 3.5 - 5.6 cm AV Peak Andres 1.0 m/sec LVIDs 2D 4.7 2.1 - 4.1 cm AV Peak PG 3.8 mmHg LVPWd 2D 1.1 0.6 - 1.1 cm LVOT Peak Andres 0.6 m/sec IVSd 2D 0.8 0.6 - 1.1 cm LVOT Peak PG 1.6 mmHg AoR Diam 2D 2.7 2.0 - 3.7 cm TR Peak Andres 2.2 m/sec EDV 2D 176.8 cm3 TR Peak PG 18.9 mmHg ESV 2D 105.1 cm3 Findings Left Ventricle: Normal left ventricular wall thickness. Mild enlargement of left ventricle cavity. Mild global left ventricular systolic dysfunction. Ejection fraction is visually estimated at 40 %. Right Ventricle: Normal right ventricular size. Hyperdynamic right ventricular systolic function. Left Atrium: There is severe enlargement of left atrium. Right Atrium: There is severe enlargement of right atrium. Mitral Valve: Moderate to severe mitral valve regurgitation. Aortic Valve: Trileaflet aortic valve. Trace aortic valve regurgitation. Tricuspid Valve: Estimated peak PA systolic pressure 28 mmHg. There is mild to moderate tricuspid regurgitation. Pulmonic Valve: There is trace pulmonic regurgitation. Pericardium: Trivial pericardial effusion. Aorta: Normal aortic root. IVC: Normal size and no respiratory collapse consistent with elevated right atrial pressure. Conclusions 1.Normal left ventricular wall thickness. Mild enlargement of left ventricle cavity. Mild global left ventricular systolic dysfunction. Ejection fraction is visually estimated at 40 %. 2.Moderate to severe mitral valve regurgitation. 3.Mild-moderate tricuspid regurgitation (may be underestimated). 4.Severe biatrial enlargement. 5.Estimated peak PA systolic pressure 28 mmHg based on RA pressure of 8 mmHg. Electronically Signed By: Cj Jeffery 07-Aug-2016 14:49:39 -0700 Patient Name: EAGLE MANNING Study Date: 07-Aug-2016 [id number]
--- NOTE | 2016-08-07 16:48 | PN ---
Date/Time of Note Date/Time of Note DATE: 08/07/16 TIME: 16:40 Assessment/Plan VTE Prophylaxis VTE Prophylaxis Intervention: SCD's Lines/Catheters IV Catheter Type (from Nrsg): Peripheral IV Urinary Cath still in place: Yes Reason Cath still needed: urinary retention Assessment/Plan Assessment/Plan Assessment * Dysphagia * S/P PEG dislodgement 08/06/2016 * Atrial fibrillation with RVR * Dementia * Urinary tract infection * PLAN PEG once cleared by cardiology continue medication Subjective 24 Hr Interval Summary Free Text/Dictation * course reviewed with rn * patient seen and examined * still on cardizem drip Exam/Review of Systems Vital Signs Vitals Vital Signs Date Time Temp Pulse Resp B/P Pulse Ox O2 Delivery O2 Flow Rate FiO2 08/07/16 16:35 201 08/07/16 12:32 98.1 20 133/77 100 08/07/16 08:25 Simple Mask 8.0 Intake and Output 08/06/16 08/06/16 08/07/16 15:00 23:00 07:00 Intake Total 0 ml 710 ml Output Total 700 ml 500 ml Balance -700 ml 210 ml Exam Constitutional: frail, non-verbal Respiratory: diminished breath sounds, normal air movement Cardiovascular: irregular rhythm, other (tachycardia) Gastrointestinal: bowel sounds, non-tender, soft Musculoskeletal: nl extremities to inspection Results Result Diagram: 08/07/16 0630 08/07/16 0630 Results 24 hrs Laboratory Tests Test 08/06/16 21:10 08/06/16 21:17 08/06/16 21:41 08/07/16 06:30 Bedside Glucose 82 Blood Gas Specimen Source Blood arterial Arterial Blood Date Drawn 08/06/2016 9:15:00 PM Arterial Blood pH (Temp corrected) 7.529 H Arterial Blood pCO2 (Temp correct) 33.2 L Arterial Blood pO2 (Temp corrected) 360.3 H Arterial Blood HCO3 27.1 H Arterial Blood Base Excess 4.6 H Arterial Blood Oxygen Saturation 99.4 H Oswaldo Test ACCEPTAB Arterial Blood Gas Puncture Site Right Radial Arterial Blood Carboxyhemoglobin 0.3 Arterial Blood Methemoglobin 0.4 Blood Gas A-a O2 Differential 38.2 H Oxyhemoglobin Percent 98.7 Total Hemoglobin 12.9 Blood Gas Temperature 37.0 Blood Gas Modality MASK - SIMPLE FiO2 61.0 Blood Gas Critical Value Read Back CRISTAL, NATHANIEL,M.D. Blood Gas Notified Whom BR Blood Gas Notified Time 08/06/2016 9:27:00 PM White Blood Count 8.9 7.1 # Red Blood Count 3.57 L 3.48 L Hemoglobin 12.3 12.0 Hematocrit 36.9 L 36.5 L Mean Corpuscular Volume 103.4 H 104.9 H Mean Corpuscular Hemoglobin 34.5 H 34.5 H Mean Corpuscular Hemoglobin Concent 33.3 32.9 Red Cell Distribution Width 13.1 13.4 Platelet Count 176 156 Mean Platelet Volume 12.1 H 13.4 H Neutrophils % 71.0 68.6 Lymphocytes % 20.3 20.0 Monocytes % 6.9 7.2 Eosinophils % 0.9 3.4 Basophils % 0.7 0.7 Nucleated Red Blood Cells % 0.0 0.0 Neutrophils # 6.3 4.8 Lymphocytes # 1.8 1.4 Monocytes # 0.6 0.5 Eosinophils # 0.1 0.2 Basophils # 0.1 0.1 Nucleated Red Blood Cells # 0.0 0.0 D-Dimer 1474.00 H D-Dimer Comment Sodium Level 142 141 Potassium Level 3.4 L 3.2 L Chloride Level 103 104 Carbon Dioxide Level 29 28 Anion Gap 13 12 Blood Urea Nitrogen 19 17 Creatinine 0.67 0.60 Glucose Level 118 110 Calcium Level 8.9 8.6 Phosphorus Level 3.0 Magnesium Level 1.9 Troponin I < 0.012 B-Type Natriuretic Peptide 2060 H Prothrombin Time 13.7 Prothrombin Time Ratio 1.1 INR International Normalized Ratio 1.05 Activated Partial Thromboplast Time 28.6 Medications Medications Current Medications Metoclopramide HCl (Reglan) 10 mg Q6H PRN IV NAUSEA AND/OR VOMITING; Start 08/06 at 05:30 Acetaminophen (Tylenol Tab) 650 mg Q6H PRN PO PAIN LEVEL 1-3 OR FEVER; Start at 05:30 Morphine Sulfate (morphine) 2 mg Q4H PRN IV SEVERE PAIN LEVEL 7-10; Start at 05:30 Famotidine 20 mg 20 mg Q12 IV Last administered on 08/07/16t 10:54; Admin Dose 20 MG; Start 08/06/16 at 09:00 Ceftriaxone Sodium 50 ml @ 100 mls/hr Q24H IVPB Last administered on 02:50; Admin Dose 100 MLS/HR; Start 08/07/16 at 03:00 Diltiazem HCl (Cardizem-D5W 125 Mg/125 ml Drip) 125 ml @ 5 mls/hr TITRATE IV Last administered on 08/07/16 10:58; Admin Dose 5 MLS/HR; Start 08/07/16 at 11: 00 Lorazepam (Ativan) 1 mg Q6H PRN IV AGITATION/ANXIETY Last administered on 10:54; Admin Dose 1 MG; Start 08/07/16 at 11:00 AGUSTIN ROSA MD Aug 07, 2016 16:48
[2016-08-08] VITALS (18 sets, daily range): BP systolic 105–131; BP diastolic 58–89; PULSE 69–132; RESP 12–19
[2016-08-08] MEDS: CEFTRIAXONE 1 GM/50 ML (PMX) 50 ML IVPB SCH (04:06)
[2016-08-08 06:55] LABS: ADD SCAN DIFF NO
[2016-08-08 06:56] LABS: BASOPHIL # 0.1 10^3/ul (0.0-0.1); BASOPHILS % 0.8 % (0.0-2.0); EOSINOPHILS # 0.1 10^3/ul (0.0-0.5); EOSINOPHILS % 1.6 % (0.0-7.0); HEMATOCRIT 36.3 % (37.0-47.0); HEMOGLOBIN 11.8 g/dl (12.0-16.0); LYMPHOCYTES % 11.6 % (15.0-51.0); MEAN CORPUSCULAR HEMOGLOBIN 33.7 pg (29.0-33.0); MEAN CORPUSCULAR HGB CONC 32.5 g/dl (32.0-37.0); MEAN CORPUSCULAR VOLUME 103.7 fl (82.0-101.0); MEAN PLATELET VOLUME 12.8 fl (7.4-10.4); MONOCYTE # 0.4 10^3/ul (0.3-0.9); MONOCYTES % 5.1 % (0.0-11.0); NEUTROPHILS % 80.6 % (39.0-77.0); PLATELET COUNT 160 10^3/UL (140-415); RED CELL DISTRIBUTION WIDTH 13.2 % (11.5-14.5); WHITE BLOOD COUNT 8.7 10^3/ul (4.8-10.8)
[2016-08-08 07:19] LABS: INR 1.11; PROTIME 14.3 Sec (12.2-14.2); PT RATIO 1.1
[2016-08-08 07:22] LABS: CALCIUM 8.7 mg/dl (8.4-10.2); CREATININE 0.54 mg/dl (0.44-1.00); POTASSIUM 3.2 mmol/L (3.5-5.1)
[2016-08-08] MEDS: LORAZEPAM 2 MG INJ IV PRN ×2 (09:21→15:38)
[2016-08-08] MEDS: FAMOTIDINE 20 MG INJ IV SCH ×2 (09:23→21:04)
--- NOTE | 2016-08-08 10:10 | RADRPT ---
Vent Rate: 129 bpm RR Interval: 0 msec TN Interval: 0 msec QRS Duration: 90 msec QT Interval: 306 msec QTC Interval: 448 msec P-R-T [place]: 0 - -27 - 75 degrees Atrial fibrillation with rapid ventricular response with premature ventricular or aberrantly conducted complexes Nonspecific ST and T wave abnormality , probably digitalis effect Abnormal ECG Electronically Signed By: Oscar Marion [phone]
--- NOTE | 2016-08-08 10:21 | PN ---
Date/Time of Note Date/Time of Note DATE: 08/08/16 TIME: 10:14 Assessment/Plan VTE Prophylaxis VTE Prophylaxis Intervention: SCD's Lines/Catheters IV Catheter Type (from Nrs): Peripheral IV Urinary Cath still in place: Yes Reason Cath still needed: urinary retention Assessment/Plan Chief Complaint/Hosp Course Assessment/Plan: 71F with: 1. Protein-Calorie Malnutrition - Resides at [facility], "G-Tube Came Out" , but it appears to have been out for an extended period of time. - f/u Pre-Albumin and Cholesterol to test nutritional status - Dietary Consult - f/u GI rec's for g-Tube Placement - pending 2. afib w/RVR - improved, but still 100-110 HR range. ECHO showed: Conclusions 1. Normal left ventricular wall thickness. Mild enlargement of left ventricle cavity. Mild global left ventricular systolic dysfunction. Ejection fraction is visually estimated at 40 %. 2. Moderate to severe mitral valve regurgitation. 3. Mild-moderate tricuspid regurgitation (may be underestimated). 4. Severe biatrial enlargement. 5. Estimated peak PA systolic pressure 28 mmHg based on RA pressure of 8 mmHg. - continue cardizem IV drip,f/u CV consult rec's - monitor INR (takes Coumadin at home but held since admission) 3. Urinary Tract Infection - Bacteria and Yeast - Rocephin 1 gram IV daily while awaiting culture results. - Diflucan once weekly for 3 to 4 weeks, once GT is back in place 4. Oral Cancer - monitor 5. Lewy Body Dementia - Rule out treatable Delirium - f/u TSH,Vitamin B12l, RPR - ativan cautiously prn Problems: Subjective 24 Hr Interval Summary Free Text/Dictation Pt seen by GI and CV teams, still on cardizem IBV drip, HR 10-110 range, less agitated. Exam/Review of Systems Vital Signs Vitals Vital Signs Date Time Temp Pulse Resp B/P Pulse Ox O2 Delivery O2 Flow Rate FiO2 08/08/16 08:31 110 08/08/16 08:00 98.0 19 111/71 95 08/08/16 06:17 Mask 8.0 Intake and Output 08/07/16 08/07/16 08/08/16 15:00 23:00 07:00 Intake Total 0 ml 74 ml Output Total 600 ml 300 ml Balance -600 ml -226 ml Exam HEENT: Agitated, trying to get out of bed, pupils are equal and reactive to light. NECK: Supple, no JVD noted, no cervical adenopathy, no carotid bruits heard. LUNGS: Fair breath sounds bilaterally. CARDIOVASCULAR: irregularly irregular, tachy ABDOMEN: Soft, nontender. No organomegaly or masses noted. EXTREMITIES: No clubbing or cyanosis noted. NEUROLOGIC: No changes Results Result Diagram: 08/08/16 0635 08/08/16 0635 Results 24 hrs Laboratory Tests Test 08/08/16 06:35 White Blood Count 8.7 # Red Blood Count 3.50 L Hemoglobin 11.8 L Hematocrit 36.3 L Mean Corpuscular Volume 103.7 H Mean Corpuscular Hemoglobin 33.7 H Mean Corpuscular Hemoglobin Concent 32.5 Red Cell Distribution Width 13.2 Platelet Count 160 Mean Platelet Volume 12.8 H Neutrophils % 80.6 H Lymphocytes % 11.6 L Monocytes % 5.1 Eosinophils % 1.6 Basophils % 0.8 Nucleated Red Blood Cells % 0.0 Neutrophils # 7.0 Lymphocytes # 1.0 Monocytes # 0.4 Eosinophils # 0.1 Basophils # 0.1 Nucleated Red Blood Cells # 0.0 Prothrombin Time 14.3 H Prothrombin Time Ratio 1.1 INR International Normalized Ratio 1.11 Sodium Level 141 Potassium Level 3.2 L Chloride Level 106 Carbon Dioxide Level 26 Anion Gap 12 Blood Urea Nitrogen 16 Creatinine 0.54 Glucose Level 111 Calcium Level 8.7 Medications Medications Current Medications Metoclopramide HCl (Reglan) 10 mg Q6H PRN IV NAUSEA AND/OR VOMITING; Start 08/06 at 05:30 Acetaminophen (Tylenol Tab) 650 mg Q6H PRN PO PAIN LEVEL 1-3 OR FEVER; Start at 05:30 Morphine Sulfate (morphine) 2 mg Q4H PRN IV SEVERE PAIN LEVEL 7-10; Start at 05:30 Famotidine 20 mg 20 mg Q12 IV Last administered on 08/08/16 09:23; Admin Dose 20 MG; Start 08/06/16 at 09:00 Ceftriaxone Sodium 50 ml @ 100 mls/hr Q24H IVPB Last administered on 04:06; Admin Dose 100 MLS/HR; Start 08/07/16 at 03:00 Diltiazem HCl (Cardizem-D5W 125 Mg/125 ml Drip) 125 ml @ 5 mls/hr TITRATE IV Last administered on 08/07/16 20:23; Admin Dose 5 MLS/HR; Start 08/07/16 at 11: 00 Lorazepam (Ativan) 1 mg Q6H PRN IV AGITATION/ANXIETY Last administered on 09:21; Admin Dose 1 MG; Start 08/07/16 at 11:00 KARUNA ALDRICH Aug 08, 2016 10:21
[2016-08-08] MEDS ORDERED: POTASSIUM CHLORIDE 250 ML IVPB ONE (11:00)
--- NOTE | 2016-08-08 12:30 | PN ---
Date/Time of Note Date/Time of Note DATE: 08/08/16 TIME: 12:26 Assessment/Plan VTE Prophylaxis VTE Prophylaxis Intervention: SCD's Lines/Catheters IV C[facility]ter Type (from [facility] [place] Urinary Cath still in place: Yes Reason Cath still needed: urinary retention Assessment/Plan Assessment/Plan * Dysphagia * S/P PEG dislodgement 08/06/2016 * Atrial fibrillation with RVR * Dementia * Urinary tract infection * PLAN PEG tomorrow continue medication spoke with daughter agreed with the plan procedure risk and benefits explained to patient Subjective 24 Hr Interval Summary Free Text/Dictation * course reviewed with nurse on duty * patient seen and examined * spoke to daughter clarified if still consenting with PEG reinsertion agreed * still in Cardizem drip Exam/Review of Systems Vital Signs Vitals Vital Signs Date Time Temp Pulse Resp B/P Pulse Ox O2 Delivery O2 Flow Rate FiO2 08/08/16 12:17 97 08/08/16 10:00 98.2 16 122/72 100 08/08/16 08:15 Simple Mask 8.0 Intake and Output 08/07/16 08/07/16 08/08/16 15:00 23:00 07:00 Intake Total 0 ml 74 ml Output Total 600 ml 300 ml Balance -600 ml -226 ml Exam Constitutional: frail, other (non verbal) Respiratory: clear to auscultation, normal air movement Cardiovascular: irregular rhythm Gastrointestinal: bowel sounds, non-tender, soft, No rebound or guarding Musculoskeletal: nl extremities to inspection Results Result Diagram: 08/08/16 0635 08/08/16 0635 Results 24 hrs Laboratory Tests Test 08/08/16 06:35 White Blood Count 8.7 # Red Blood Count 3.50 L Hemoglobin 11.8 L Hematocrit 36.3 L Mean Corpuscular Volume 103.7 H Mean Corpuscular Hemoglobin 33.7 H Mean Corpuscular Hemoglobin Concent 32.5 Red Cell Distribution Width 13.2 Platelet Count 160 Mean Platelet Volume 12.8 H Neutrophils % 80.6 H Lymphocytes % 11.6 L Monocytes % 5.1 Eosinophils % 1.6 Basophils % 0.8 Nucleated Red Blood Cells % 0.0 Neutrophils # 7.0 Lymphocytes # 1.0 Monocytes # 0.4 Eosinophils # 0.1 Basophils # 0.1 Nucleated Red Blood Cells # 0.0 Prothrombin Time 14.3 H Prothrombin Time Ratio 1.1 INR International Normalized Ratio 1.11 Sodium Level 141 Potassium Level 3.2 L Chloride Level 106 Carbon Dioxide Level 26 Anion Gap 12 Blood Urea Nitrogen 16 Creatinine 0.54 Glucose Level 111 Calcium Level 8.7 Medications Medications Current Medications Metoclopramide HCl (Reglan) 10 mg Q6H PRN IV NAUSEA AND/OR VOMITING; Start 08/06 at 05:30 Acetaminophen (Tylenol Tab) 650 mg Q6H PRN PO PAIN LEVEL 1-3 OR FEVER; Start at 05:30 Morphine Sulfate (morphine) 2 mg Q4H PRN IV SEVERE PAIN LEVEL 7-10; Start at 05:30 Famotidine 20 mg 20 mg Q12 IV Last administered on 08/08/16 09:23; Admin Dose 20 MG; Start 08/06/16 at 09:00 Ceftriaxone Sodium 50 ml @ 100 mls/hr Q24H IVPB Last administered on 04:06; Admin Dose 100 MLS/HR; Start 08/07/16 at 03:00 Diltiazem HCl (Cardizem-D5W 125 Mg/125 ml Drip) 125 ml @ 5 mls/hr TITRATE IV Last administered on 08/07/16 20:23; Admin Dose 5 MLS/HR; Start 08/07/16 at 11: 00 Lorazepam 1 mg 1 mg Q6H PRN IV AGITATION/ANXIETY Last administered on 09:21; Admin Dose 1 MG; Start 08/07/16 at 11:00 Potassium Chloride (KCl 40 MEQ/250 ML NS) 250 ml @ 62.5 mls/hr ONCE ONCE IVPB Last administered on 08/08/16 12:11; Admin Dose 62.5 MLS/HR; Start 08/08/16 at 11:00; Stop 08/08/16 at 14:59 AGUSTIN ROSA MD Aug 08, 2016 12:30
--- NOTE | 2016-08-08 15:40 | CONS ---
Date/Time of Note Date/Time of Note DATE: 08/08/16 TIME: 15:34 Assessment/Plan Assessment/Plan Chief Complaint/Hosp Course Atrial fibrillation with RVR: Pt has been off her PO meds as her G-tube was dislodged. She cannot take PO. Of note on prior admissions, she has had intermittent episodes of RVR due to agitation which resolved with sedation and PO meds. Her HR has been well controlled on diltiazem and ativan for agitation however currently it is back to 130s but pt is agitated again. Acute on chronic systolic/diastolic heart failure: EF ~40%. Likely from tachycardia. Appears euvolemic on exam today. Cardiomyopathy: EF 40%, likely tachycardia mediated. Dysphagia s/p g-tube: possible G-tube placement today UTI Dementia: Agitated intermittently -ativan now for agitation (HR usually controlled when pt is calm) -if above does not work, increase diltiazem drip as BP tolerates -if HR <110-120, ok for G-tube placement. Will likely improve with further sedation during procedure. -once G-tibe is placed, will switch diltiazem drip preferably to PO BB like bisoprolol for RVR and cardiomyopathy Problems: Consultation Date/Type/Reason Admit Date/Time Aug 08, 2016 at 10:14 Initial Consult Date 08/07/16 Type of Consultation: Cardiology 24 HR Interval Summary Free Text/Dictation HR well controlled on diltiazem drip when calm. Currently HR up to 130 but pt is very agitated. Exam/Review of Systems Vital Signs Vitals Vital Signs Date Time Temp Pulse Resp B/P Pulse Ox O2 Delivery O2 Flow Rate FiO2 08/08/16 14:00 97.9 104 16 126/85 95 08/08/16 08:15 Simple Mask 8.0 Intake and Output 08/07/16 08/07/16 08/08/16 15:00 23:00 07:00 Intake Total 0 ml 74 ml Output Total 600 ml 300 ml Balance -600 ml -226 ml Exam Constitutional: alert, No oriented Head: atraumatic, normocephalic Neck: No jvd Respiratory: diminished breath sounds, No clear to auscultation, No crackles/rales Cardiovascular: No edema, No regular rate and rhythm (IRIR, tachy) Gastrointestinal: non-tender, soft Neurological: No nl mental status, No nl speech Results Result Diagram: 08/08/16 0635 08/08/16 0635 Results 24 hrs Laboratory Tests Test 08/08/16 06:35 White Blood Count 8.7 # Red Blood Count 3.50 L Hemoglobin 11.8 L Hematocrit 36.3 L Mean Corpuscular Volume 103.7 H Mean Corpuscular Hemoglobin 33.7 H Mean Corpuscular Hemoglobin Concent 32.5 Red Cell Distribution Width 13.2 Platelet Count 160 Mean Platelet Volume 12.8 H Neutrophils % 80.6 H Lymphocytes % 11.6 L Monocytes % 5.1 Eosinophils % 1.6 Basophils % 0.8 Nucleated Red Blood Cells % 0.0 Neutrophils # 7.0 Lymphocytes # 1.0 Monocytes # 0.4 Eosinophils # 0.1 Basophils # 0.1 Nucleated Red Blood Cells # 0.0 Prothrombin Time 14.3 H Prothrombin Time Ratio 1.1 INR International Normalized Ratio 1.11 Sodium Level 141 Potassium Level 3.2 L Chloride Level 106 Carbon Dioxide Level 26 Anion Gap 12 Blood Urea Nitrogen 16 Creatinine 0.54 Glucose Level 111 Calcium Level 8.7 Medications Medications Current Medications Metoclopramide HCl (Reglan) 10 mg Q6H PRN IV NAUSEA AND/OR VOMITING; Start 08/06 at 05:30 Acetaminophen (Tylenol Tab) 650 mg Q6H PRN PO PAIN LEVEL 1-3 OR FEVER; Start at 05:30 Morphine Sulfate (morphine) 2 mg Q4H PRN IV SEVERE PAIN LEVEL 7-10; Start at 05:30 Famotidine 20 mg 20 mg Q12 IV Last administered on 08/08/16 09:23; Admin Dose 20 MG; Start 08/06/16 at 09:00 Ceftriaxone Sodium 50 ml @ 100 mls/hr Q24H IVPB Last administered on 04:06; Admin Dose 100 MLS/HR; Start 08/07/16 at 03:00 Diltiazem HCl (Cardizem-D5W 125 Mg/125 ml Drip) 125 ml @ 5 mls/hr TITRATE IV Last administered on 08/07/16 20:23; Admin Dose 5 MLS/HR; Start 08/07/16 at 11: 00 Lorazepam (Ativan) 1 mg Q6H PRN IV AGITATION/ANXIETY Last administered on 09:21; Admin Dose 1 MG; Start 08/07/16 at 11:00 RAFAEL SALGUERO Aug 08, 2016 15:40
[2016-08-08] MEDS: DILTIAZEM-D5W 125MG/125ML DRIP 125 ML IV SCH (17:37)
[2016-08-09] VITALS (21 sets, daily range): BP systolic 101–144; BP diastolic 56–97; PULSE 66–122; RESP 16–20
[2016-08-09] MEDS: CEFTRIAXONE 1 GM/50 ML (PMX) 50 ML IVPB SCH (03:35)
[2016-08-09 06:59] LABS: ADD SCAN DIFF NO
[2016-08-09 07:06] LABS: BASOPHIL # 0.1 10^3/ul (0.0-0.1); EOSINOPHILS # 0.3 10^3/ul (0.0-0.5); EOSINOPHILS % 4.1 % (0.0-7.0); HEMATOCRIT 38.2 % (37.0-47.0); HEMOGLOBIN 12.3 g/dl (12.0-16.0); LYMPHOCYTES # 1.1 10^3/ul (0.8-2.9); LYMPHOCYTES % 14.2 % (15.0-51.0); MEAN CORPUSCULAR HGB CONC 32.2 g/dl (32.0-37.0); MEAN CORPUSCULAR VOLUME 105.5 fl (82.0-101.0); MEAN PLATELET VOLUME 13.6 fl (7.4-10.4); MONOCYTE # 0.5 10^3/ul (0.3-0.9); MONOCYTES % 6.1 % (0.0-11.0); NEUTROPHIL # 5.8 10^3/ul (1.6-7.5); NEUTROPHILS % 74.3 % (39.0-77.0); RED BLOOD COUNT 3.62 10^6/ul (4.20-5.40); RED CELL DISTRIBUTION WIDTH 13.2 % (11.5-14.5); WHITE BLOOD COUNT 7.8 10^3/ul (4.8-10.8)
[2016-08-09 07:11] LABS: PLATELET COUNT 121 10^3/UL (140-415)
[2016-08-09 07:16] LABS: INR 0.93; PROTIME 12.5 Sec (12.2-14.2)
[2016-08-09 07:31] LABS: CALCIUM 8.7 mg/dl (8.4-10.2); CREATININE 0.44 mg/dl (0.44-1.00); POTASSIUM 3.9 mmol/L (3.5-5.1)
[2016-08-09] MEDS: FAMOTIDINE 20 MG INJ IV SCH ×2 (08:33→20:19)
[2016-08-09] MEDS: LORAZEPAM 2 MG INJ IV PRN ×2 (09:24→16:22)
[2016-08-09] MEDS: DEXTROSE 5%-0.45% NACL 1,000 ML IV SCH ×2 (09:59→23:20)
[2016-08-09] MEDS: DILTIAZEM-D5W 125MG/125ML DRIP 125 ML IV SCH (10:03)
--- NOTE | 2016-08-09 10:28 | PN ---
Date/Time of Note Date/Time of Note DATE: 08/09/16 TIME: 10:23 Assessment/Plan VTE Prophylaxis VTE Prophylaxis Intervention: SCD's Lines/Catheters IV [facility] Saline Lock Urinary Cath still in place: Yes Reason Cath still needed: urinary retention Assessment/Plan Chief Complaint/Hosp Course Assessment/Plan: 71F with: 1. Protein-Calorie Malnutrition - Resides at Board and Care, "G-Tube Came Out" , but it appears to have been out for an extended period of time. - f/u GI rec's for g-Tube Placement - possibly to be performed today 2. afib w/RVR - improved, but still 100-110 HR range. ECHO showed: Conclusions 1. Normal left ventricular wall thickness. Mild enlargement of left ventricle cavity. Mild global left ventricular systolic dysfunction. Ejection fraction is visually estimated at 40 %. 2. Moderate to severe mitral valve regurgitation. 3. Mild-moderate tricuspid regurgitation (may be underestimated). 4. Severe biatrial enlargement. 5. Estimated peak PA systolic pressure 28 mmHg based on RA pressure of 8 mmHg. - continue cardizem IV drip,f/u CV consult rec's - monitor INR (takes Coumadin at home but held since admission) 3. Urinary Tract Infection - Bacteria and Yeast - Rocephin 1 gram IV daily while awaiting culture results. - Diflucan once weekly for 3 to 4 weeks, once GT is back in place 4. Oral Cancer - monitor 5. Lewy Body Dementia - f/u TSH,Vitamin B12l, RPR - ativan cautiously prn Problems: Subjective 24 Hr Interval Summary Free Text/Dictation Pt had some agitation this AM, awaiting PEG placement for later today. Still on Cardizem IV drip. Exam/Review of Systems Vital Signs Vitals Vital Signs Date Time Temp Pulse Resp B/P Pulse Ox O2 Delivery O2 Flow Rate FiO2 08/09/16 08:14 110 08/09/16 06:50 98.3 18 116/56 100 08/09/16 06:00 Nasal Cannula 3.0 Intake and Output 08/08/16 08/08/16 08/09/16 14:59 22:59 06:59 Intake Total 250 ml 116 ml Output Total 300 ml 500 ml Balance -50 ml -384 ml Exam HEENT: Agitated, trying to get out of bed, pupils are equal and reactive to light. NECK: Supple, no JVD noted, no cervical adenopathy, no carotid bruits heard. LUNGS: Fair breath sounds bilaterally. CARDIOVASCULAR: irregularly irregular, tachy ABDOMEN: Soft, nontender. No organomegaly or masses noted. EXTREMITIES: No clubbing or cyanosis noted. NEUROLOGIC: No changes Results Result Diagram: 08/09/16 0628 08/09/16 0628 Results 24 hrs Laboratory Tests Test 08/09/16 06:28 White Blood Count 7.8 Red Blood Count 3.62 L Hemoglobin 12.3 Hematocrit 38.2 Mean Corpuscular Volume 105.5 H Mean Corpuscular Hemoglobin 34.0 H Mean Corpuscular Hemoglobin Concent 32.2 Red Cell Distribution Width 13.2 Platelet Count 121 #L Mean Platelet Volume 13.6 H Neutrophils % 74.3 Lymphocytes % 14.2 L Monocytes % 6.1 Eosinophils % 4.1 Basophils % 1.0 Nucleated Red Blood Cells % 0.0 Neutrophils # 5.8 Lymphocytes # 1.1 Monocytes # 0.5 Eosinophils # 0.3 Basophils # 0.1 Nucleated Red Blood Cells # 0.0 Prothrombin Time 12.5 Prothrombin Time Ratio 1.0 INR International Normalized Ratio 0.93 Sodium Level 140 Potassium Level 3.9 Chloride Level 108 Carbon Dioxide Level 28 Anion Gap 8 Blood Urea Nitrogen 17 Creatinine 0.44 Glucose Level 84 Calcium Level 8.7 Medications Medications Current Medications Metoclopramide HCl (Reglan) 10 mg Q6H PRN IV NAUSEA AND/OR VOMITING; Start 08/06 at 05:30 Acetaminophen (Tylenol Tab) 650 mg Q6H PRN PO PAIN LEVEL 1-3 OR FEVER; Start at 05:30 Morphine Sulfate (morphine) 2 mg Q4H PRN IV SEVERE PAIN LEVEL 7-10; Start at 05:30 Famotidine 20 mg 20 mg Q12 IV Last administered on 08/09/16 08:33; Admin Dose 20 MG; Start 08/06/16 at 09:00 Ceftriaxone Sodium 50 ml @ 100 mls/hr Q24H IVPB Last administered on 03:35; Admin Dose 100 MLS/HR; Start 08/07/16 at 03:00 Diltiazem HCl (Cardizem-D5W 125 Mg/125 ml Drip) 125 ml @ 5 mls/hr TITRATE IV Last administered on 08/09/16 10:03; Admin Dose 6 MLS/HR; Start 08/07/16 at 11: 00 Lorazepam 1 mg 1 mg Q6H PRN IV AGITATION/ANXIETY Last administered on 09:24; Admin Dose 1 MG; Start 08/07/16 at 11:00 Dextrose/Sodium Chloride (D5-1/2ns) 1,000 ml @ 75 mls/hr [id number] IV Last administered on 08/09/16 09:59; Admin Dose 75 MLS/HR; Start 08/09/16 at 10:00 KARUNA ALDRICH Aug 09, 2016 10:28
--- NOTE | 2016-08-09 11:17 | CONS ---
Date/Time of Note Date/Time of Note DATE: 08/09/16 TIME: 11:15 Assessment/Plan Assessment/Plan Chief Complaint/Hosp Course Atrial fibrillation with RVR: Pt has been off her PO meds as her G-tube was dislodged. She cannot take PO. Of note on prior admissions, she has had intermittent episodes of RVR due to agitation which resolved with sedation and PO meds. Her HR has been well controlled on diltiazem and ativan for agitation. Acute on chronic systolic/diastolic heart failure: EF ~40%. Likely from tachycardia. Appears euvolemic on exam. Cardiomyopathy: EF 40%, likely tachycardia mediated. Dysphagia s/p g-tube: possible G-tube placement today UTI Dementia: Agitated intermittently -if HR <110-120, ok for G-tube placement. Will likely improve with further sedation during procedure. -if HR elevated and pt is agitated, start with ativan. If not effective, increase diltiazem drip -once G-tube is placed, will switch diltiazem drip preferably to PO BB like bisoprolol for RVR and cardiomyopathy Problems: Consultation Date/Type/Reason Admit Date/Time Aug 08, 2016 at 10:14 Initial Consult Date 08/07/16 Type of Consultation: Cardiology 24 HR Interval Summary Free Text/Dictation No o/n events. HR well controlled as pt is sedated on ativan Exam/Review of Systems Vital Signs Vitals Vital Signs Date Time Temp Pulse Resp B/P Pulse Ox O2 Delivery O2 Flow Rate FiO2 08/09/16 08:14 110 08/09/16 06:50 98.3 18 116/56 100 08/09/16 06:00 Nasal Cannula 3.0 Intake and Output 08/08/16 08/08/16 08/09/16 15:00 23:00 07:00 Intake Total 250 ml 116 ml Output Total 300 ml 500 ml Balance -50 ml -384 ml Exam Constitutional: No alert, No oriented Head: atraumatic, normocephalic Neck: No jvd Respiratory: diminished breath sounds Cardiovascular: No edema, No regular rate and rhythm Gastrointestinal: non-tender, soft Results Result Diagram: 08/09/1628 08/09/1628 Results 24 hrs Laboratory Tests Test 08/09/16 06:28 White Blood Count 7.8 Red Blood Count 3.62 L Hemoglobin 12.3 Hematocrit 38.2 Mean Corpuscular Volume 105.5 H Mean Corpuscular Hemoglobin 34.0 H Mean Corpuscular Hemoglobin Concent 32.2 Red Cell Distribution Width 13.2 Platelet Count 121 #L Mean Platelet Volume 13.6 H Neutrophils % 74.3 Lymphocytes % 14.2 L Monocytes % 6.1 Eosinophils % 4.1 Basophils % 1.0 Nucleated Red Blood Cells % 0.0 Neutrophils # 5.8 Lymphocytes # 1.1 Monocytes # 0.5 Eosinophils # 0.3 Basophils # 0.1 Nucleated Red Blood Cells # 0.0 Prothrombin Time 12.5 Prothrombin Time Ratio 1.0 INR International Normalized Ratio 0.93 Sodium Level 140 Potassium Level 3.9 Chloride Level 108 Carbon Dioxide Level 28 Anion Gap 8 Blood Urea Nitrogen 17 Creatinine 0.44 Glucose Level 84 Calcium Level 8.7 Medications Medications Current Medications Metoclopramide HCl (Reglan) 10 mg Q6H PRN IV NAUSEA AND/OR VOMITING; Start 08/06 at 05:30 Acetaminophen (Tylenol Tab) 650 mg Q6H PRN PO PAIN LEVEL 1-3 OR FEVER; Start at 05:30 Morphine Sulfate (morphine) 2 mg Q4H PRN IV SEVERE PAIN LEVEL 7-10; Start at 05:30 Famotidine 20 mg 20 mg Q12 IV Last administered on 08/09/16 08:33; Admin Dose 20 MG; Start 08/06/16 at 09:00 Diltiazem HCl (Cardizem-D5W 125 Mg/125 ml Drip) 125 ml @ 5 mls/hr TITRATE IV Last administered on 08/09/16 10:03; Admin Dose 6 MLS/HR; Start 08/07/16 at 11: 00 Lorazepam 1 mg 1 mg Q6H PRN IV AGITATION/ANXIETY Last administered on 09:24; Admin Dose 1 MG; Start 08/07/16 at 11:00 Dextrose/Sodium Chloride 1,000 ml @ 75 mls/hr [id number] IV Last administered on 08/09/16 09:59; Admin Dose 75 MLS/HR; Start 08/09/16 at 10:00 Levofloxacin/ Dextrose (Levaquin 750 Mg/ D5W 150 ml (Pmx)) 150 ml @ 100 mls/hr Q24H IVPB ; Start 08/09/16 at 11:00 RAFAEL SALGUERO Aug 09, 2016 11:17
[2016-08-09] MEDS: LEVOFLOXACIN 750MG/D5W (PMX) 150 ML IVPB SCH (12:21)
[2016-08-09] MEDS ORDERED: CEFAZOLIN 1 GM/50 ML (PMX) 50 ML IVPB ONE (17:51)
[2016-08-09] MEDS ORDERED: PROPOFOL 20 ML ONE (17:51)
[2016-08-09] MEDS ORDERED: FENTAnyl 50 MCG/ML VIAL IV PRN (18:30)
[2016-08-09] MEDS ORDERED: MEPERIDINE 25 MG INJ IV PRN (18:30)
[2016-08-09] MEDS ORDERED: MIDAZOLAM 1 MG/ML 2 ML INJ IV PRN (18:30)
[2016-08-09] MEDS ORDERED: ONDANSETRON 4 MG INJ IV PRN (18:30)
[2016-08-09] MEDS ORDERED: METOCLOPRAMIDE 10 MG INJ IV PRN (18:30)
[2016-08-09] MEDS ORDERED: DIPHENHYDRAMINE 50 MG INJ IV PRN (18:30)
--- NOTE | 2016-08-09 18:46 | GILP ---
DATE OF PROCEDURE: PROCEDURE: Esophagogastroduodenoscopy with percutaneous endoscopic gastrostomy tube placement. BRIEF HISTORY AND INDICATIONS: The patient is enteral feeding dependent, gastrostomy tube was accid entally dislodged. PREMEDICATION: Monitored anesthesia care by anesthesiologist. SURGEON: Agustin Chua MD TECHNIQUE: After informed consent, with the patient and/or family members understanding the procedur e, its indications, potential risks and complications, including but not limited to: allergic reacti on, bleeding, perforation, infection or leakage, and after all pertinent questions were answered to the patient and/or family members satisfaction, the patient and/or family member signed witnessed in formed consent. Following this, premedication was administered slowly IV push, under careful cardiovascular and resp iratory monitoring with pulse oximetry, blood pressure and ekg monitor tech. Once the sedative effect was achieved the patient was place in the supine position, the Olympus panendoscope was introduced and advanced under visual guidance. Careful examination of the upper gastrointestinal tract, on insertion as well as withdrawal of the i nstrument disclosed the following findings: ESOPHAGUS: The mucosa of the entire esophagus appears within normal limits. There is no evidence of esophagitis, varices, neoplasm or stricture. STOMACH: Upon entrance to the stomach air was insufflated, the gastric morales distended normally. Th e mucosa of the fundus, body and antrum of the stomach was carefully examined both head-on and on re troflexion, and shows no abnormalities. There is no evidence of gastritis, ulcers or neoplasm. PYLORUS: The pylorus appears patent and within normal limits, with no evidence of gastric outlet obs truction. DUODENUM: The duodenal mucosa was carefully examined in the duodenal bulb as well as the second port ion of the duodenum and appears unremarkable with no evidence of duodenitis, ulcer or neoplasm. The instrument was then brought back to the stomach and the anterior wall mid-body was identified by transillumination and "finger indentation", this area was then marked in the anterior wall of the a bdomen, it was cleansed with Betadine and infiltrated with Xylocaine 1%. Following this a trocar nee dle was introduced into the gastric lumen under visual control with the endoscope, once in the gastr ic lumen a guide wire was advanced and secured with a polypectomy snare, at this point the endoscope was withdrawn bringing the guide wire out through the patients mouth. Following this a gastrostomy tube was introduced over the guide wire, with the Sacks-Vine technique without difficulty, a small i ncision was performed in the skin to allow easy passage of the G-tube, once the position of the portia rostomy tube was confirmed, the external stopper and connectors were installed, and a clean dressing applied. The patient tolerated the procedure well and was transferred out of the endoscopy suite awake, and i n good condition to continue recovery under observation, feedings will started in the next 12-24 dawit rs and gastrostomy care will be instituted. 1:01 IMPRESSION: Uneventful percutaneous endoscopic gastrostomy tube placement with placement of Amharic 20 gastrostomy tube with no incident or complication. PLAN: Feedings will be started tonight as this is a replacement, and further recommendations will d epend on the patient's clinical course. Dictated By: AGUSTIN ROJAS Conf#: [id number] DID#: [id number]
[2016-08-09] MEDS: morphine 2 MG INJ IV PRN (22:34)
[2016-08-10] VITALS (20 sets, daily range): BP systolic 105–150; BP diastolic 57–90; PULSE 71–129; RESP 15–22
[2016-08-10] MEDS: DILTIAZEM-D5W 125MG/125ML DRIP 125 ML IV SCH ×2 (02:15→06:57)
[2016-08-10] MEDS: DEXTROSE 5%-0.45% NACL 1,000 ML IV SCH ×2 (04:33→12:40)
[2016-08-10 06:14] LABS: ADD SCAN DIFF NO
[2016-08-10 06:21] LABS: BASOPHIL # 0.1 10^3/ul (0.0-0.1); BASOPHILS % 0.4 % (0.0-2.0); EOSINOPHILS # 0.4 10^3/ul (0.0-0.5); EOSINOPHILS % 2.7 % (0.0-7.0); HEMATOCRIT 36.9 % (37.0-47.0); HEMOGLOBIN 12.3 g/dl (12.0-16.0); LYMPHOCYTES # 1.4 10^3/ul (0.8-2.9); LYMPHOCYTES % 10.2 % (15.0-51.0); MEAN CORPUSCULAR HEMOGLOBIN 34.8 pg (29.0-33.0); MEAN CORPUSCULAR HGB CONC 33.3 g/dl (32.0-37.0); MEAN CORPUSCULAR VOLUME 104.5 fl (82.0-101.0); MONOCYTE # 0.8 10^3/ul (0.3-0.9); MONOCYTES % 6.1 % (0.0-11.0); NEUTROPHILS % 80.2 % (39.0-77.0); PLATELET COUNT 143 10^3/UL (140-415); RED BLOOD COUNT 3.53 10^6/ul (4.20-5.40); WHITE BLOOD COUNT 13.7 10^3/ul (4.8-10.8)
[2016-08-10 06:39] LABS: CALCIUM 8.5 mg/dl (8.4-10.2); CREATININE 0.44 mg/dl (0.44-1.00); POTASSIUM 3.1 mmol/L (3.5-5.1)
[2016-08-10] MEDS: FAMOTIDINE 20 MG INJ IV SCH ×2 (09:01→21:23)
[2016-08-10] MEDS ORDERED: POTASSIUM CHLORIDE 250 ML IVPB ONE (10:30)
--- NOTE | 2016-08-10 10:34 | PN ---
Date/Time of Note Date/Time of Note DATE: 08/10/16 TIME: 10:21 Assessment/Plan VTE Prophylaxis VTE Prophylaxis Intervention: SCD's Lines/Catheters IV [facility]ter Type (from [facility] Peripheral IV Urinary Cath still in place: Yes Reason Cath still needed: urinary retention Assessment/Plan Chief Complaint/Hosp Course Assessment/Plan: 71F with: 1. Protein-Calorie Malnutrition - Resides at Board and Care, "G-Tube Came Out" , but it appears to have been out for an extended period of time, and now s/p g- Tube Placement yesterday. - monitor for now, continue G tube feeds as tolerated, f/u GI rec's 2. afib w/RVR - improved, but still 100-110 HR range. ECHO showed: Conclusions 1. Normal left ventricular wall thickness. Mild enlargement of left ventricle cavity. Mild global left ventricular systolic dysfunction. Ejection fraction is visually estimated at 40 %. 2. Moderate to severe mitral valve regurgitation. 3. Mild-moderate tricuspid regurgitation (may be underestimated). 4. Severe biatrial enlargement. 5. Estimated peak PA systolic pressure 28 mmHg based on RA pressure of 8 mmHg. - continue cardizem IV drip, f/u CV consult rec's (she may be switched to bb via g tube) - monitor INR (takes Coumadin at home but held since admission) 3. Urinary Tract Infection - Bacteria and Yeast : + VRE and Yadira - continue Levaquin (based on sensitivities) and antifungal - Diflucan once weekly for 3 to 4 weeks, once GT is back in place 4. Oral Cancer - monitor 5. Lewy Body Dementia - f/u TSH,Vitamin B12l, RPR - ativan cautiously prn Problems: Subjective 24 Hr Interval Summary Free Text/Dictation Pt received G tube yesterday. Now on G tube feeds. Still with agitation this AM. Exam/Review of Systems Vital Signs Vitals Vital Signs Date Time Temp Pulse Resp B/P Pulse Ox O2 Delivery O2 Flow Rate FiO2 08/10/16 08:17 113 08/10/16 07:51 98.0 18 119/70 95 08/10/16 06:00 Nasal Cannula 3.0 Intake and Output 08/09/16 08/09/16 08/10/16 15:00 23:00 07:00 Intake Total 150 ml 810 ml 1049 ml Output Total 400 ml 1000 ml Balance 150 ml 410 ml 49 ml Exam HEENT: less agitated, NAD presently NECK: Supple, no JVD noted, no cervical adenopathy, no carotid bruits heard. LUNGS: Fair breath sounds bilaterally. CARDIOVASCULAR: irregularly irregular ABDOMEN: Soft, nontender. No organomegaly or masses noted. EXTREMITIES: No clubbing or cyanosis noted. NEUROLOGIC: No changes Results Result Diagram: 08/10/16 0535 08/10/16 0535 Results 24 hrs Laboratory Tests Test 08/10/16 05:35 White Blood Count 13.7 #H Red Blood Count 3.53 L Hemoglobin 12.3 Hematocrit 36.9 L Mean Corpuscular Volume 104.5 H Mean Corpuscular Hemoglobin 34.8 H Mean Corpuscular Hemoglobin Concent 33.3 Red Cell Distribution Width 13.0 Platelet Count 143 Mean Platelet Volume 13.0 H Neutrophils % 80.2 H Lymphocytes % 10.2 L Monocytes % 6.1 Eosinophils % 2.7 Basophils % 0.4 Nucleated Red Blood Cells % 0.0 Neutrophils # 11.0 H Lymphocytes # 1.4 Monocytes # 0.8 Eosinophils # 0.4 Basophils # 0.1 Nucleated Red Blood Cells # 0.0 Sodium Level 139 Potassium Level 3.1 L Chloride Level 105 Carbon Dioxide Level 29 Anion Gap 8 Blood Urea Nitrogen 16 Creatinine 0.44 Glucose Level 107 Calcium Level 8.5 Medications Medications Current Medications Metoclopramide HCl (Reglan) 10 mg Q6H PRN IV NAUSEA AND/OR VOMITING; Start 08/06 at 05:30 Acetaminophen (Tylenol Tab) 650 mg Q6H PRN PO PAIN LEVEL 1-3 OR FEVER; Start at 05:30 Morphine Sulfate (morphine) 2 mg Q4H PRN IV SEVERE PAIN LEVEL 7-10 Last administered on 08/09/16 22:34; Admin Dose 2 MG; Start 08/06/16 at 05:30 Famotidine 20 mg 20 mg Q12 IV Last administered on 08/10/16 09:01; Admin Dose 20 MG; Start 08/06/16 at 09:00 Diltiazem HCl (Cardizem-D5W 125 Mg/125 ml Drip) 125 ml @ 5 mls/hr TITRATE IV Last administered on 08/10/16 06:57; Admin Dose 5 MLS/HR; Start 08/07/16 at 11: 00 Lorazepam 1 mg 1 mg Q6H PRN IV AGITATION/ANXIETY Last administered on 00:00; Admin Dose 1 MG; Start 08/07/16 at 11:00 Dextrose/Sodium Chloride 1,000 ml @ 75 mls/hr [id number] IV Last administered on 08/10/16 04:33; Admin Dose 75 MLS/HR; Start 08/09/16 at 10:00 Levofloxacin/ Dextrose 150 ml @ 100 mls/hr Q24H IVPB Last administered on 08/09 12:21; Admin Dose 100 MLS/HR; Start 08/09/16 at 11:00 Potassium Chloride (KCl 40 MEQ/250 ML NS) 250 ml @ 62.5 mls/hr ONCE ONCE IVPB ; Start 08/10/16 at 10:30; Stop 08/10/16 at 14:29; Status KARUNA HENSLEY Aug 10, 2016 10:31
[2016-08-10] MEDS: LORAZEPAM 2 MG INJ IV PRN ×3 (10:35→21:49)
[2016-08-10] MEDS: LEVOFLOXACIN 750MG/D5W (PMX) 150 ML IVPB SCH (12:16)
[2016-08-10] MEDS: FLUCONAZOLE 200 MG TAB GTB SCH (12:24)
[2016-08-10] MEDS: morphine 2 MG INJ IV PRN (14:09)
--- NOTE | 2016-08-10 14:18 | CONS ---
Date/Time of Note Date/Time of Note DATE: 08/10/16 TIME: 14:15 Assessment/Plan Assessment/Plan Chief Complaint/Hosp Course Atrial fibrillation with RVR: Occurs when pt is agitated. Otherwise controlled Acute on chronic systolic/diastolic heart failure: EF ~40%. Likely from tachycardia. Appears euvolemic on exam. Cardiomyopathy: EF 40%, likely tachycardia mediated. Dysphagia s/p g-tube: s/p g-tube 08/09 UTI Dementia: Agitated intermittently -start bisoprolol 5 mg BID -titrate down/off diltiazem drip if HR improved with bisoprolol -consider psychiatry eval for long acting meds for agitation Problems: Consultation Date/Type/Reason Admit Date/Time Aug 08, 2016 at 10:14 Initial Consult Date 08/07/16 Type of Consultation: Cardiology 24 HR Interval Summary Free Text/Dictation s/p G-tube. HR elevated again secondary to agitation Exam/Review of Systems Vital Signs Vitals Vital Signs Date Time Temp Pulse Resp B/P Pulse Ox O2 Delivery O2 Flow Rate FiO2 08/10/16 14:03 99.0 71 19 111/63 96 Nasal Cannula 3.0 Intake and Output 08/09/16 08/09/16 08/10/16 15:00 23:00 07:00 Intake Total 150 ml 810 ml 1049 ml Output Total 400 ml 1000 ml Balance 150 ml 410 ml 49 ml Exam Constitutional: alert, other (agitated ), No oriented Head: atraumatic, normocephalic Neck: No jvd Respiratory: clear to auscultation Cardiovascular: No edema, No regular rate and rhythm Gastrointestinal: non-tender, soft Results Result Diagram: 08/10/16 0535 08/10/16 0535 Results 24 hrs Laboratory Tests Test 08/10/16 05:35 White Blood Count 13.7 #H Red Blood Count 3.53 L Hemoglobin 12.3 Hematocrit 36.9 L Mean Corpuscular Volume 104.5 H Mean Corpuscular Hemoglobin 34.8 H Mean Corpuscular Hemoglobin Concent 33.3 Red Cell Distribution Width 13.0 Platelet Count 143 Mean Platelet Volume 13.0 H Neutrophils % 80.2 H Lymphocytes % 10.2 L Monocytes % 6.1 Eosinophils % 2.7 Basophils % 0.4 Nucleated Red Blood Cells % 0.0 Neutrophils # 11.0 H Lymphocytes # 1.4 Monocytes # 0.8 Eosinophils # 0.4 Basophils # 0.1 Nucleated Red Blood Cells # 0.0 Sodium Level 139 Potassium Level 3.1 L Chloride Level 105 Carbon Dioxide Level 29 Anion Gap 8 Blood Urea Nitrogen 16 Creatinine 0.44 Glucose Level 107 Calcium Level 8.5 Medications Medications Current Medications Metoclopramide HCl (Reglan) 10 mg Q6H PRN IV NAUSEA AND/OR VOMITING; Start 08/06 at 05:30 Acetaminophen (Tylenol Tab) 650 mg Q6H PRN PO PAIN LEVEL 1-3 OR FEVER; Start at 05:30 Morphine Sulfate (morphine) 2 mg Q4H PRN IV SEVERE PAIN LEVEL 7-10 Last administered on 08/10/16 14:09; Admin Dose 2 MG; Start 08/06/16 at 05:30 Famotidine 20 mg 20 mg Q12 IV Last administered on 08/10/16 09:01; Admin Dose 20 MG; Start 08/06/16 at 09:00 Diltiazem HCl (Cardizem-D5W 125 Mg/125 ml Drip) 125 ml @ 5 mls/hr TITRATE IV Last administered on 08/10/16 06:57; Admin Dose 5 MLS/HR; Start 08/07/16 at 11: 00 Lorazepam 1 mg 1 mg Q6H PRN IV AGITATION/ANXIETY Last administered on 10:35; Admin Dose 1 MG; Start 08/07/16 at 11:00 Dextrose/Sodium Chloride 1,000 ml @ 75 mls/hr [id number] IV Last administered on 08/10/16 04:33; Admin Dose 75 MLS/HR; Start 08/09/16 at 10:00 Levofloxacin/ Dextrose 150 ml @ 100 mls/hr Q24H IVPB Last administered on 08/10 12:16; Admin Dose 100 MLS/HR; Start 08/09/16 at 11:00 Potassium Chloride (KCl 40 MEQ/250 ML NS) 250 ml @ 62.5 mls/hr ONCE ONCE IVPB Last administered on 08/10/16 13:55; Admin Dose 62.5 MLS/HR; Start 08/10/16 at 10:30; Stop 08/10/16 at 14:29 Fluconazole (Diflucan) 200 mg DAILY GTB Last administered on 08/10/16t 12:24; Admin Dose 200 MG; Start 08/10/16 at 11:00 Bisoprolol Fumarate (Zebeta) 5 mg BID PO ; Start 08/10/16 at 14:30 RAFAEL SALGUERO Aug 10, 2016 14:17
[2016-08-10] MEDS: BISOPROLOL 5 MG TAB PO SCH (14:34)
--- NOTE | 2016-08-10 15:19 | PN ---
Date/Time of Note Date/Time of Note DATE: 08/10/16 TIME: 15:15 Assessment/Plan VTE Prophylaxis VTE Prophylaxis Intervention: SCD's Lines/Catheters IV Catheter Type (from [facility] Peripheral IV Urinary Cath still in place: Yes Reason Cath still needed: urinary retention Assessment/Plan Assessment/Plan Assessment/Plan * Dysphagia * S/P PEG dislodgement 08/06/2016 * PEG reinserted 08/09/2016 * Atrial fibrillation with RVR * Dementia * Urinary tract infection * PLAN resume tube feeding continue present management Subjective 24 Hr Interval Summary Free Text/Dictation * course reviewed with RN * Patient seen and examined * S/P peg insertion 08/09/2016 * tolerating tube feeding * dressing dry no bleed Exam/Review of Systems Vital Signs Vitals Vital Signs Date Time Temp Pulse Resp B/P Pulse Ox O2 Delivery O2 Flow Rate FiO2 08/10/16 14:03 99.0 71 19 111/63 96 Nasal Cannula 3.0 Intake and Output 08/09/16 08/09/16 08/10/16 15:00 23:00 07:00 Intake Total 150 ml 810 ml 1049 ml Output Total 400 ml 1000 ml Balance 150 ml 410 ml 49 ml Exam Constitutional: non-verbal Respiratory: clear to auscultation, diminished breath sounds Cardiovascular: nl pulses, regular rate and rhythm Gastrointestinal: non-tender, other (g tube in placed ,no leak), soft Results Result Diagram: 08/10/16 0535 08/10/16 0535 Results 24 hrs Laboratory Tests Test 08/10/16 05:35 White Blood Count 13.7 #H Red Blood Count 3.53 L Hemoglobin 12.3 Hematocrit 36.9 L Mean Corpuscular Volume 104.5 H Mean Corpuscular Hemoglobin 34.8 H Mean Corpuscular Hemoglobin Concent 33.3 Red Cell Distribution Width 13.0 Platelet Count 143 Mean Platelet Volume 13.0 H Neutrophils % 80.2 H Lymphocytes % 10.2 L Monocytes % 6.1 Eosinophils % 2.7 Basophils % 0.4 Nucleated Red Blood Cells % 0.0 Neutrophils # 11.0 H Lymphocytes # 1.4 Monocytes # 0.8 Eosinophils # 0.4 Basophils # 0.1 Nucleated Red Blood Cells # 0.0 Sodium Level 139 Potassium Level 3.1 L Chloride Level 105 Carbon Dioxide Level 29 Anion Gap 8 Blood Urea Nitrogen 16 Creatinine 0.44 Glucose Level 107 Calcium Level 8.5 Medications Medications Current Medications Metoclopramide HCl (Reglan) 10 mg Q6H PRN IV NAUSEA AND/OR VOMITING; Start 08/06 at 05:30 Acetaminophen (Tylenol Tab) 650 mg Q6H PRN PO PAIN LEVEL 1-3 OR FEVER; Start at 05:30 Morphine Sulfate (morphine) 2 mg Q4H PRN IV SEVERE PAIN LEVEL 7-10 Last administered on 08/10/16 14:09; Admin Dose 2 MG; Start 08/06/16 at 05:30 Famotidine 20 mg 20 mg Q12 IV Last administered on 08/10/16 09:01; Admin Dose 20 MG; Start 08/06/16 at 09:00 Diltiazem HCl (Cardizem-D5W 125 Mg/125 ml Drip) 125 ml @ 5 mls/hr TITRATE IV Last administered on 08/10/16 06:57; Admin Dose 5 MLS/HR; Start 08/07/16 at 11: 00 Lorazepam 1 mg 1 mg Q6H PRN IV AGITATION/ANXIETY Last administered on 10:35; Admin Dose 1 MG; Start 08/07/16 at 11:00 Dextrose/Sodium Chloride 1,000 ml @ 75 mls/hr [id number] IV Last administered on 08/10/16 04:33; Admin Dose 75 MLS/HR; Start 08/09/16 at 10:00 Levofloxacin/ Dextrose (Levaquin 750 Mg/ D5W 150 ml (Pmx)) 150 ml @ 100 mls/hr Q24H IVPB Last administered on 08/10/16 12:16; Admin Dose 100 MLS/HR; Start at 11:00 Fluconazole (Diflucan) 200 mg DAILY GTB Last administered on 08/10/16 12:24; Admin Dose 200 MG; Start 08/10/16 at 11:00 Bisoprolol Fumarate (Zebeta) 5 mg BID PO Last administered on 08/10/16 14:34; Admin Dose 5 MG; Start 08/10/16 at 14:30 AGUSTIN ROSA MD Aug 10, 2016 15:19
[2016-08-11] VITALS (20 sets, daily range): BP systolic 97–166; BP diastolic 51–80; PULSE 76–110; RESP 17–20
[2016-08-11] MEDS: BISOPROLOL 5 MG TAB PO SCH ×3 (01:09→20:52)
[2016-08-11] MEDS: DEXTROSE 5%-0.45% NACL 1,000 ML IV SCH ×3 (01:09→20:52)
[2016-08-11 07:09] LABS: ADD SCAN DIFF NO
[2016-08-11 07:18] LABS: ABNORMAL IP MESSAGE 1; HEMATOCRIT 34.9 % (37.0-47.0); HEMOGLOBIN 11.7 g/dl (12.0-16.0); MEAN CORPUSCULAR HEMOGLOBIN 34.9 pg (29.0-33.0); MEAN CORPUSCULAR HGB CONC 33.5 g/dl (32.0-37.0); MEAN CORPUSCULAR VOLUME 104.2 fl (82.0-101.0); MEAN PLATELET VOLUME 13.3 fl (7.4-10.4); PLATELET COUNT 123 10^3/UL (140-415); RED BLOOD COUNT 3.35 10^6/ul (4.20-5.40); RED CELL DISTRIBUTION WIDTH 13.2 % (11.5-14.5); WHITE BLOOD COUNT 25.2 10^3/ul (4.8-10.8)
[2016-08-11 07:52] LABS: CALCIUM 8.2 mg/dl (8.4-10.2); CREATININE 0.47 mg/dl (0.44-1.00); POTASSIUM 3.3 mmol/L (3.5-5.1)
[2016-08-11] MEDS: FAMOTIDINE 20 MG INJ IV SCH ×2 (08:35→20:52)
[2016-08-11] MEDS: FLUCONAZOLE 200 MG TAB GTB SCH (08:35)
[2016-08-11 09:23] LABS: MONOCYTE # 0.8 10^3/ul (0.3-0.9); NEUTROPHIL # 21.9 10^3/ul (1.6-7.5)
--- NOTE | 2016-08-11 10:08 | PN ---
Date/Time of Note Date/Time of Note DATE: 08/11/16 TIME: 10:03 Assessment/Plan VTE Prophylaxis VTE Prophylaxis Intervention: SCD's Lines/Catheters IV Catheter Type (from Nrs): Peripheral IV Urinary Cath still in place: Yes Reason Cath still needed: urinary retention Assessment/Plan Chief Complaint/Hosp Course Assessment/Plan: 71F with: 1. Protein-Calorie Malnutrition - Resides at [facility], "G-Tube Came Out" , but it appears to have been out for an extended period of time, and now s/p g- Tube Placement yesterday. - monitor for now, continue G tube feeds as tolerated, f/u GI rec's 2. afib w/RVR - improved,. ECHO showed: Conclusions 1. Normal left ventricular wall thickness. Mild enlargement of left ventricle cavity. Mild global left ventricular systolic dysfunction. Ejection fraction is visually estimated at 40 %. 2. Moderate to severe mitral valve regurgitation. 3. Mild-moderate tricuspid regurgitation (may be underestimated). 4. Severe biatrial enlargement. 5. Estimated peak PA systolic pressure 28 mmHg based on RA pressure of 8 mmHg. - continue cardizem IV drip + BB, f/u CV consult rec's - monitor INR (takes Coumadin at home but held since admission) 3. Urinary Tract Infection - Bacteria and Yeast : + VRE and Yadira. WBC more elevated today (13 -> 25) - continue Levaquin (based on sensitivities) and antifungal, but will also get ID consult - Diflucan once weekly for 3 to 4 weeks, once GT is back in place 4. Oral Cancer - monitor 5. Lewy Body Dementia - f/u TSH,Vitamin B12l, RPR - ativan cautiously prn Problems: Subjective 24 Hr Interval Summary Free Text/Dictation Pt less agitated, stil on cardizem drip. Exam/Review of Systems Vital Signs Vitals Vital Signs Date Time Temp Pulse Resp B/P Pulse Ox O2 Delivery O2 Flow Rate FiO2 08/11/16 08:45 Nasal Cannula 3.0 08/11/16 08:19 81 08/11/16 07:09 98.1 18 103/60 100 Intake and Output 08/10/16 08/10/16 08/11/16 15:00 23:00 07:00 Intake Total 150 ml 560 ml 1605 ml Output Total 100 ml 550 ml Balance 150 ml 460 ml 1055 ml Exam HEENT: less agitated, NAD presently NECK: Supple, no JVD noted, no cervical adenopathy, no carotid bruits heard. LUNGS: Fair breath sounds bilaterally. CARDIOVASCULAR: irregularly irregular ABDOMEN: Soft, nontender. No organomegaly or masses noted. EXTREMITIES: No clubbing or cyanosis noted. NEUROLOGIC: No changes Results Result Diagram: 08/11/16 0620 08/11/16 0620 Results 24 hrs Laboratory Tests Test 08/11/16 06:20 White Blood Count 25.2 #H Red Blood Count 3.35 L Hemoglobin 11.7 L Hematocrit 34.9 L Mean Corpuscular Volume 104.2 H Mean Corpuscular Hemoglobin 34.9 H Mean Corpuscular Hemoglobin Concent 33.5 Red Cell Distribution Width 13.2 Platelet Count 123 L Mean Platelet Volume 13.3 H Neutrophils % 87.0 H Band Neutrophils % 6.0 H Lymphocytes % 4.0 L Monocytes % 3.0 Neutrophils # 21.9 H Lymphocytes # 1.0 Monocytes # 0.8 Sodium Level 135 Potassium Level 3.3 L Chloride Level 104 Carbon Dioxide Level 28 Anion Gap 6 L Blood Urea Nitrogen 16 Creatinine 0.47 Glucose Level 129 Calcium Level 8.2 L Medications Medications Current Medications Metoclopramide HCl (Reglan) 10 mg Q6H PRN IV NAUSEA AND/OR VOMITING; Start 08/06 at 05:30 Acetaminophen (Tylenol Tab) 650 mg Q6H PRN PO PAIN LEVEL 1-3 OR FEVER; Start at 05:30 Morphine Sulfate (morphine) 2 mg Q4H PRN IV SEVERE PAIN LEVEL 7-10 Last administered on 08/10/16 14:09; Admin Dose 2 MG; Start 08/06/16 at 05:30 Famotidine 20 mg 20 mg Q12 IV Last administered on 08/11/16 08:35; Admin Dose 20 MG; Start 08/06/16 at 09:00 Diltiazem HCl (Cardizem-D5W 125 Mg/125 ml Drip) 125 ml @ 5 mls/hr TITRATE IV Last administered on 08/10/16 06:57; Admin Dose 5 MLS/HR; Start 08/07/16 at 11: 00 Lorazepam 1 mg 1 mg Q6H PRN IV AGITATION/ANXIETY Last administered on 4/13/ 17at 21:49; Admin Dose 1 MG; Start 08/07/16 at 11:00 Dextrose/Sodium Chloride 1,000 ml @ 75 mls/hr [id number] IV Last administered on 08/11/16 01:09; Admin Dose 75 MLS/HR; Start 08/09/16 at 10:00 Levofloxacin/ Dextrose (Levaquin 750 Mg/ D5W 150 ml (Pmx)) 150 ml @ 100 mls/hr Q24H IVPB Last administered on 08/10/16 12:16; Admin Dose 100 MLS/HR; Start at 11:00 Fluconazole (Diflucan) 200 mg DAILY GTB Last administered on 08/11/16 08:35; Admin Dose 200 MG; Start 08/10/16 at 11:00 Bisoprolol Fumarate (Zebeta) 5 mg BID PO Last administered on 08/11/16 08:35; Admin Dose 5 MG; Start 08/10/16 at 14:30 KARUNA ALDRICH Aug 11, 2016 10:08
[2016-08-11] MEDS ORDERED: POTASSIUM CHLORIDE 250 ML IVPB ONE (10:30)
--- NOTE | 2016-08-11 10:53 | CONS ---
Date/Time of Note Date/Time of Note DATE: 08/11/16 TIME: 10:53 Assessment/Plan Assessment/Plan Additional Assessment/Plan Dysphagia S/p EGD + PEG: Uneventful percutaneous endoscopic gastrostomy tube placement with placement of Swedish 20 gastrostomy tube with no incident or complication. Monitor tube feed Q6hrs, hold for residuals greater 150 mL Cleanse site and change dressing daily Nutrition recommendations: TF: Fibersource HN @ 55 ml/hr= 1584 kcals/71 g pro/ 1069 ml h2o. Flush with 100 mL q 6 hours. 1469 mL total h2o, ~37 kcals, 1.7 g pro/kg ABW. Add 500 mg vit c BID for wounds. Lewy Body Dementia Psychosis Management per Primary Hypothyroidism Continue supplementation per primary Hypertension Atrial Fibrillation History of angioplasty Cardiology following Further recommendations depend on clinical course Patient seen in collaboration with Dr. Chua Consultation Date/Type/Reason Admit Date/Time Aug 08, 2016 at 10:14 Initial Consult Date 08/07/16 Type of Consultation: Gastroenterology 24 HR Interval Summary Free Text/Dictation Tube feed at 40mL with minimal residual Advance tube feed to goal rate Exam/Review of Systems Vital Signs Vitals Vital Signs Date Time Temp Pulse Resp B/P Pulse Ox O2 Delivery O2 Flow Rate FiO2 08/11/16 08:45 Nasal Cannula 3.0 08/11/16 08:19 81 08/11/16 07:09 98.1 18 103/60 100 Intake and Output 08/10/16 08/10/16 08/11/16 14:59 22:59 06:59 Intake Total 150 ml 560 ml 1605 ml Output Total 100 ml 550 ml Balance 150 ml 460 ml 1055 ml Exam Constitutional: non-verbal Respiratory: clear to auscultation, diminished breath sounds Cardiovascular: nl pulses, regular rate and rhythm Gastrointestinal: non-tender, other (g tube in placed ,no leak), soft Results Result Diagram: 08/11/16 0620 08/11/16 0620 Results 24 hrs Laboratory Tests Test 08/11/16 06:20 White Blood Count 25.2 #H Red Blood Count 3.35 L Hemoglobin 11.7 L Hematocrit 34.9 L Mean Corpuscular Volume 104.2 H Mean Corpuscular Hemoglobin 34.9 H Mean Corpuscular Hemoglobin Concent 33.5 Red Cell Distribution Width 13.2 Platelet Count 123 L Mean Platelet Volume 13.3 H Neutrophils % 87.0 H Band Neutrophils % 6.0 H Lymphocytes % 4.0 L Monocytes % 3.0 Neutrophils # 21.9 H Lymphocytes # 1.0 Monocytes # 0.8 Sodium Level 135 Potassium Level 3.3 L Chloride Level 104 Carbon Dioxide Level 28 Anion Gap 6 L Blood Urea Nitrogen 16 Creatinine 0.47 Glucose Level 129 Calcium Level 8.2 L Medications Medications Current Medications Metoclopramide HCl (Reglan) 10 mg Q6H PRN IV NAUSEA AND/OR VOMITING; Start 08/06 at 05:30 Acetaminophen (Tylenol Tab) 650 mg Q6H PRN PO PAIN LEVEL 1-3 OR FEVER; Start at 05:30 Morphine Sulfate (morphine) 2 mg Q4H PRN IV SEVERE PAIN LEVEL 7-10 Last administered on 08/10/16 14:09; Admin Dose 2 MG; Start 08/06/16 at 05:30 Famotidine 20 mg 20 mg Q12 IV Last administered on 08/11/16 08:35; Admin Dose 20 MG; Start 08/06/16 at 09:00 Diltiazem HCl (Cardizem-D5W 125 Mg/125 ml Drip) 125 ml @ 5 mls/hr TITRATE IV Last administered on 08/10/16 06:57; Admin Dose 5 MLS/HR; Start 08/07/16 at 11: 00 Lorazepam 1 mg 1 mg Q6H PRN IV AGITATION/ANXIETY Last administered on 21:49; Admin Dose 1 MG; Start 08/07/16 at 11:00 Dextrose/Sodium Chloride 1,000 ml @ 75 mls/hr [id number] IV Last administered on 08/11/16 01:09; Admin Dose 75 MLS/HR; Start 08/09/16 at 10:00 Levofloxacin/ Dextrose (Levaquin 750 Mg/ D5W 150 ml (Pmx)) 150 ml @ 100 mls/hr Q24H IVPB Last administered on 08/10/16 12:16; Admin Dose 100 MLS/HR; Start at 11:00 Fluconazole (Diflucan) 200 mg DAILY GTB Last administered on 08/11/16 08:35; Admin Dose 200 MG; Start 08/10/16 at 11:00 Bisoprolol Fumarate 5 mg 5 mg BID PO Last administered on 08/11/16 08:35; Admin Dose 5 MG; Start 08/10/16 at 14:30 Potassium Chloride (KCl 40 MEQ/250 ML NS) 250 ml @ 62.5 mls/hr ONCE ONCE IVPB ; Start 08/11/16 at 10:30; Stop 08/11/16 at 14:29 LELA SOOD Aug 11, 2016 10:53 Levofloxacin/ Dextrose (Levaquin 750 Mg/ D5W 150 ml (Pmx)) 150 ml @ 100 mls/hr Q24H IVPB Last administered on 08/10/16 12:16; Admin Dose 100 MLS/HR; Start at 11:00 Fluconazole (Diflucan) 200 mg DAILY GTB Last administered on 08/11/16 08:35; Admin Dose 200 MG; Start 08/10/16 at 11:00 Bisoprolol Fumarate 5 mg 5 mg BID PO Last administered on 08/11/16 08:35; Admin Dose 5 MG; Start 08/10/16 at 14:30 Potassium Chloride (KCl 40 MEQ/250 ML NS) 250 ml @ 62.5 mls/hr ONCE ONCE IVPB ; Start 08/11/16 at 10:30; Stop 08/11/16 at 14:29 LELA SOOD Aug 11, 2016 10:53
[2016-08-11] MEDS: morphine 2 MG INJ IV PRN (11:03)
[2016-08-11] MEDS: LEVOFLOXACIN 750MG/D5W (PMX) 150 ML IVPB SCH (11:10)
--- NOTE | 2016-08-11 12:06 | CONS ---
Date/Time of Note Date/Time of Note DATE: 08/11/16 TIME: 12:05 Assessment/Plan Assessment/Plan Chief Complaint/Hosp Course Atrial fibrillation with RVR: Occurs when pt is agitated. Otherwise controlled Acute on chronic systolic/diastolic heart failure: EF ~40%. Likely from tachycardia. Appears euvolemic on exam. Cardiomyopathy: EF 40%, likely tachycardia mediated. Dysphagia s/p g-tube: s/p g-tube 08/09 UTI Dementia: Agitated intermittently -bisoprolol 5 mg BID, uptitrate as BP tolerates -titrate down/off diltiazem drip (if BP improves can uptitrate bisoprolol, otherwise can start digoxin) Problems: Consultation Date/Type/Reason Admit Date/Time Aug 08, 2016 at 10:14 Initial Consult Date 08/07/16 Type of Consultation: Cardiology 24 HR Interval Summary Free Text/Dictation HR controlled when calm. Still on diltiazem drip Exam/Review of Systems Vital Signs Vitals Vital Signs Date Time Temp Pulse Resp B/P Pulse Ox O2 Delivery O2 Flow Rate FiO2 08/11/16 11:17 97.8 70 18 97/70 100 08/11/16 10:00 Nasal Cannula 3.0 Intake and Output 08/10/16 08/10/16 08/11/16 15:00 23:00 07:00 Intake Total 150 ml 560 ml 1605 ml Output Total 100 ml 550 ml Balance 150 ml 460 ml 1055 ml Exam Constitutional: No alert, No oriented Neck: No jvd Respiratory: clear to auscultation Cardiovascular: No edema, No regular rate and rhythm Gastrointestinal: non-tender, soft Neurological: No nl mental status Results Result Diagram: 08/11/16 0620 08/11/16 0620 Results 24 hrs Laboratory Tests Test 08/11/16 06:20 White Blood Count 25.2 #H Red Blood Count 3.35 L Hemoglobin 11.7 L Hematocrit 34.9 L Mean Corpuscular Volume 104.2 H Mean Corpuscular Hemoglobin 34.9 H Mean Corpuscular Hemoglobin Concent 33.5 Red Cell Distribution Width 13.2 Platelet Count 123 L Mean Platelet Volume 13.3 H Neutrophils % 87.0 H Band Neutrophils % 6.0 H Lymphocytes % 4.0 L Monocytes % 3.0 Neutrophils # 21.9 H Lymphocytes # 1.0 Monocytes # 0.8 Sodium Level 135 Potassium Level 3.3 L Chloride Level 104 Carbon Dioxide Level 28 Anion Gap 6 L Blood Urea Nitrogen 16 Creatinine 0.47 Glucose Level 129 Calcium Level 8.2 L Medications Medications Current Medications Metoclopramide HCl (Reglan) 10 mg Q6H PRN IV NAUSEA AND/OR VOMITING; Start 08/06 at 05:30 Acetaminophen (Tylenol Tab) 650 mg Q6H PRN PO PAIN LEVEL 1-3 OR FEVER; Start at 05:30 Morphine Sulfate (morphine) 2 mg Q4H PRN IV SEVERE PAIN LEVEL 7-10 Last administered on 08/11/16 11:03; Admin Dose 2 MG; Start 08/06/16 at 05:30 Famotidine 20 mg 20 mg Q12 IV Last administered on 08/11/16 08:35; Admin Dose 20 MG; Start 08/06/16 at 09:00 Diltiazem HCl (Cardizem-D5W 125 Mg/125 ml Drip) 125 ml @ 5 mls/hr TITRATE IV Last administered on 08/10/16 06:57; Admin Dose 5 MLS/HR; Start 08/07/16 at 11: 00 Lorazepam 1 mg 1 mg Q6H PRN IV AGITATION/ANXIETY Last administered on 21:49; Admin Dose 1 MG; Start 08/07/16 at 11:00 Dextrose/Sodium Chloride 1,000 ml @ 75 mls/hr [id number] IV Last administered on 08/11/16 01:09; Admin Dose 75 MLS/HR; Start 08/09/16 at 10:00 Levofloxacin/ Dextrose (Levaquin 750 Mg/ D5W 150 ml (Pmx)) 150 ml @ 100 mls/hr Q24H IVPB Last administered on 08/11/16 11:10; Admin Dose 100 MLS/HR; Start at 11:00 Fluconazole (Diflucan) 200 mg DAILY GTB Last administered on 08/11/16 08:35; Admin Dose 200 MG; Start 08/10/16 at 11:00 Bisoprolol Fumarate 5 mg 5 mg BID PO Last administered on 08/11/16 08:35; Admin Dose 5 MG; Start 08/10/16 at 14:30 Potassium Chloride (KCl 40 MEQ/250 ML NS) 250 ml @ 62.5 mls/hr ONCE ONCE IVPB Last administered on 08/11/16t 11:03; Admin Dose 62.5 MLS/HR; Start 08/11/16 at 10:30; Stop 08/11/16 at 14:29 RAFAEL SALGUERO Aug 11, 2016 12:06
[2016-08-11] MEDS: LORAZEPAM 2 MG INJ IV PRN (20:53)
[2016-08-12] VITALS (20 sets, daily range): BP systolic 87–121; BP diastolic 49–71; PULSE 88–141; RESP 16–20
[2016-08-12] MEDS: DEXTROSE 5%-0.45% NACL 1,000 ML IV SCH ×2 (04:40→12:29)
[2016-08-12] MEDS: LEVOFLOXACIN 500 MG TAB GTB SCH (06:08)
[2016-08-12 07:05] LABS: ADD SCAN DIFF NO
[2016-08-12 07:10] LABS: BASOPHILS % 0.2 % (0.0-2.0); EOSINOPHILS # 0.3 10^3/ul (0.0-0.5); EOSINOPHILS % 1.4 % (0.0-7.0); HEMATOCRIT 35.5 % (37.0-47.0); HEMOGLOBIN 11.5 g/dl (12.0-16.0); LYMPHOCYTES # 1.7 10^3/ul (0.8-2.9); LYMPHOCYTES % 9.7 % (15.0-51.0); MEAN CORPUSCULAR HEMOGLOBIN 34.2 pg (29.0-33.0); MEAN CORPUSCULAR HGB CONC 32.4 g/dl (32.0-37.0); MEAN CORPUSCULAR VOLUME 105.7 fl (82.0-101.0); MEAN PLATELET VOLUME 13.4 fl (7.4-10.4); MONOCYTE # 1.1 10^3/ul (0.3-0.9); MONOCYTES % 6.5 % (0.0-11.0); NEUTROPHIL # 14.1 10^3/ul (1.6-7.5); NEUTROPHILS % 81.5 % (39.0-77.0); PLATELET COUNT 118 10^3/UL (140-415); RED BLOOD COUNT 3.36 10^6/ul (4.20-5.40); RED CELL DISTRIBUTION WIDTH 13.4 % (11.5-14.5); WHITE BLOOD COUNT 17.3 10^3/ul (4.8-10.8)
[2016-08-12 07:37] LABS: POTASSIUM 3.8 mmol/L (3.5-5.1)
[2016-08-12 07:39] LABS: CREATININE 0.5 mg/dl (0.44-1.00)
[2016-08-12 07:40] LABS: CALCIUM 8.5 mg/dl (8.4-10.2)
[2016-08-12] MEDS: FAMOTIDINE 20 MG INJ IV SCH ×2 (08:14→20:24)
[2016-08-12] MEDS: FLUCONAZOLE 200 MG TAB GTB SCH (08:15)
[2016-08-12] MEDS: BISOPROLOL 5 MG TAB PO SCH ×2 (08:23→20:24)
--- NOTE | 2016-08-12 09:00 | CONS ---
DATE OF ADMISSION: 08/08/2016 DATE OF CONSULTATION: 08/11/2016 TYPE OF CONSULTATION: Infectious disease. REASON FOR CONSULTATION: Antibiotic management. HISTORY OF PRESENT ILLNESS: Evie Russell is a 71-year-old female with severe Lewy body dementia sent from a intermediate facility for G-tube dislodgement. Her past problems include: 1. Lewy body dementia. 2. Atrial fibrillation. 3. Hypertension. 4. Hypothyroidism. 5. Depression. 6. Psychosis. 7. G-tube placement. 8. Hip replacement. 9. Cholecystectomy. 10. Status post angioplasty. The patient has some protein calorie malnutrition, resides at a board and care. Her G-tube came out and it appears to have been out for an extended period of time. Dr. Chua was called to replace the G-tube. She also had a urinary tract infection with bacteria and yeast. Rocephin and Diflucan were started while she was awaiting her culture reports to come back. PAST MEDICAL HISTORY: Operations as outlined. FAMILY HISTORY: Noncontributory. SOCIAL HISTORY: She is demented. She does not smoke, drink or abuse drugs. ALLERGIES: NONE TO PENICILLIN, SULFA OR FOODS. MEDICATIONS: Per chart. REVIEW OF SYSTEMS: Noncontributory. PHYSICAL EXAMINATION: GENERAL: The patient is a . She is actually a cachectic female who is awake but noncommunicati ve, in no acute distress. VITAL SIGNS: Stable. She is afebrile. SKIN: Without generalized rash. HEENT: Within normal limits. NECK: Supple. LYMPH NODES: None palpable. CHEST: Decreased breath sounds at the bases. HEART: Without murmur or gallop. ABDOMEN: Soft, nontender, without hepatosplenomegaly or masses. EXTREMITIES: She has some muscle wasting. RECTAL AND GENITAL: Exams deferred. NEUROLOGIC EVALUATION: She is demented. She has no focal neurological abnormalities. LABORATORY DATA: Her white count is 7.8, H and H 13.4 and 39.7 on admission, platelet count 181,000 . BUN and creatinine 21/0.65. IMPRESSION AND PLAN: The patient has been seen by numerous physicians. She was seen by Dr. Chua and he did an EGD with percutaneous endoscopic gastrostomy tube placement. This was done on the 12t h. Currently, the patient has Vancomycin-resistant enterococcus (VRE) and Yadira in the urine. Wh ite count is more elevated today. Continue fluconazole and antifungal but will get ID consult. Her microbiology shows Vancomycin-resistant enterococcus (VRE) and Yadira albicans. The Vancomycin-res istant enterococcus (VRE) is resistant to Fosfomycin. It is however sensitive to Cipro and to Levaq uin. Her Yadira albicans is only 10-20,000 colony-forming units per mL. Therefore, we are going to treat her with Levaquin 500 mg p.o. daily. We will continue her on current therapy. I will dictat e my findings to the hospitalist. Dictated By: MARIA G MCLEAN MD, JD/ROSA Conf#: [id number] DID#: [id number]
[2016-08-12] MEDS: LORAZEPAM 2 MG INJ IV PRN (10:08)
--- NOTE | 2016-08-12 10:10 | CONS ---
Date/Time of Note Date/Time of Note DATE: 08/12/16 TIME: 10:09 Assessment/Plan Assessment/Plan Chief Complaint/Hosp Course Atrial fibrillation with RVR: Occurs when pt is agitated. Otherwise controlled Acute on chronic systolic/diastolic heart failure: EF ~40%. Likely from tachycardia. Appears euvolemic on exam. Cardiomyopathy: EF 40%, likely tachycardia mediated. Dysphagia s/p g-tube: s/p g-tube 08/09 UTI Dementia: Agitated intermittently -bisoprolol 5 mg BID -next agent will be digoxin if further rate control is needed as BP is low Problems: Consultation Date/Type/Reason Admit Date/Time Aug 08, 2016 at 10:14 Initial Consult Date 08/07/16 Type of Consultation: Cardiology 24 HR Interval Summary Free Text/Dictation Off diltiazem drip. Calm this am and HRs overall are controlled. Exam/Review of Systems Vital Signs Vitals Vital Signs Date Time Temp Pulse Resp B/P Pulse Ox O2 Delivery O2 Flow Rate FiO2 08/12/16 08:23 105 08/12/16 08:11 20 99/65 08/12/16 07:09 98.6 92 08/12/16 06:04 Nasal Cannula 08/12/16 06:00 3.0 Intake and Output 08/11/16 08/11/16 08/12/16 15:00 23:00 07:00 Intake Total 885 ml 750 ml Output Total 700 ml 550 ml Balance 185 ml 200 ml Exam Constitutional: No alert, No oriented Head: atraumatic, normocephalic Neck: No jvd Respiratory: clear to auscultation Cardiovascular: No edema, No regular rate and rhythm (IRIR) Gastrointestinal: non-tender, soft Results Result Diagram: 08/12/16 0623 08/12/16 0623 Results 24 hrs Laboratory Tests Test 08/12/16 06:23 White Blood Count 17.3 #H Red Blood Count 3.36 L Hemoglobin 11.5 L Hematocrit 35.5 L Mean Corpuscular Volume 105.7 H Mean Corpuscular Hemoglobin 34.2 H Mean Corpuscular Hemoglobin Concent 32.4 Red Cell Distribution Width 13.4 Platelet Count 118 L Mean Platelet Volume 13.4 H Neutrophils % 81.5 H Lymphocytes % 9.7 L Monocytes % 6.5 Eosinophils % 1.4 Basophils % 0.2 Nucleated Red Blood Cells % 0.0 Neutrophils # 14.1 H Lymphocytes # 1.7 Monocytes # 1.1 H Eosinophils # 0.3 Basophils # 0.0 Nucleated Red Blood Cells # 0.0 Sodium Level 136 Potassium Level 3.8 Chloride Level 101 Carbon Dioxide Level 28 Anion Gap 11 Blood Urea Nitrogen 16 Creatinine 0.50 Glucose Level 97 Calcium Level 8.5 Medications Medications Current Medications Metoclopramide HCl (Reglan) 10 mg Q6H PRN IV NAUSEA AND/OR VOMITING; Start 08/06 at 05:30 Acetaminophen (Tylenol Tab) 650 mg Q6H PRN PO PAIN LEVEL 1-3 OR FEVER; Start at 05:30 Morphine Sulfate (morphine) 2 mg Q4H PRN IV SEVERE PAIN LEVEL 7-10 Last administered on 08/11/16 11:03; Admin Dose 2 MG; Start 08/06/16 at 05:30 Famotidine (Pepcid Iv) 20 mg Q12 IV Last administered on 08/12/16 08:14; Admin Dose 20 MG; Start 08/06/16 at 09:00 Lorazepam 1 mg 1 mg Q6H PRN IV AGITATION/ANXIETY Last administered on 20:53; Admin Dose 1 MG; Start 08/07/16 at 11:00 Dextrose/Sodium Chloride (D5-1/2ns) 1,000 ml @ 75 mls/hr [id number] IV Last administered on 08/11/16 20:52; Admin Dose 75 MLS/HR; Start 08/09/16 at 10:00 Fluconazole (Diflucan) 200 mg DAILY GTB Last administered on 08/12/16 08:15; Admin Dose 200 MG; Start 08/10/16 at 11:00 Bisoprolol Fumarate (Zebeta) 5 mg BID PO Last administered on 08/12/16 08:23; Admin Dose 5 MG; Start 08/10/16 at 14:30 Levofloxacin (Levaquin) 500 mg DAILY@06 GTB Last administered on 08/12/16 06: 08; Admin Dose 500 MG; Start 08/12/16 at 06:00 RAFAEL SALGUERO Aug 12, 2016 10:10
--- NOTE | 2016-08-12 11:38 | PN ---
Date/Time of Note Date/Time of Note DATE: 08/12/16 TIME: 11:35 Assessment/Plan VTE Prophylaxis VTE Prophylaxis Intervention: SCD's Lines/Catheters IV Catheter Type (from Nrs): Peripheral IV Urinary Cath still in place: Yes Reason Cath still needed: urinary retention Assessment/Plan Chief Complaint/Hosp Course Assessment/Plan: 71F with: 1. Protein-Calorie Malnutrition - Resides at [facility] Care, "G-Tube Came Out" , but it appears to have been out for an extended period of time, and now s/p g- Tube Placement earlier this admission. - monitor for now, continue G tube feeds as tolerated, f/u GI rec's 2. afib w/RVR - improved,. ECHO showed: Conclusions 1. Normal left ventricular wall thickness. Mild enlargement of left ventricle cavity. Mild global left ventricular systolic dysfunction. Ejection fraction is visually estimated at 40 %. 2. Moderate to severe mitral valve regurgitation. 3. Mild-moderate tricuspid regurgitation (may be underestimated). 4. Severe biatrial enlargement. 5. Estimated peak PA systolic pressure 28 mmHg based on RA pressure of 8 mmHg. - continue BB, f/u CV consult rec's - may start digoxin as well - monitor INR (takes Coumadin at home but held since admission) 3. Urinary Tract Infection - Bacteria and Yeast : + VRE and Yadira. Seen by ID team - continue Levaquin PO (based on ID re4c's and sensitivities) and antifungal - f/u ID rec's 4. Oral Cancer - monitor 5. Lewy Body Dementia - f/u TSH,Vitamin B12l, RPR - ativan cautiously prn Problems: Subjective 24 Hr Interval Summary Free Text/Dictation Pt still agitated at times. Off cardizem presently. Exam/Review of Systems Vital Signs Vitals Vital Signs Date Time Temp Pulse Resp B/P Pulse Ox O2 Delivery O2 Flow Rate FiO2 08/12/16 10:09 103 102/71 08/12/16 08:11 20 08/12/16 08:00 Nasal Cannula 3.0 08/12/16 07:09 98.6 92 Intake and Output 08/11/16 08/11/16 08/12/16 15:00 23:00 07:00 Intake Total 885 ml 750 ml Output Total 700 ml 550 ml Balance 185 ml 200 ml Exam HEENT: less agitated, NAD presently NECK: Supple, no JVD noted, no cervical adenopathy, no carotid bruits heard. LUNGS: Fair breath sounds bilaterally. CARDIOVASCULAR: irregularly irregular ABDOMEN: Soft, nontender. No organomegaly or masses noted. EXTREMITIES: No clubbing or cyanosis noted. NEUROLOGIC: No changes Results Result Diagram: 08/12/16 0623 08/12/16 0623 Results 24 hrs Laboratory Tests Test 08/12/16 06:23 White Blood Count 17.3 #H Red Blood Count 3.36 L Hemoglobin 11.5 L Hematocrit 35.5 L Mean Corpuscular Volume 105.7 H Mean Corpuscular Hemoglobin 34.2 H Mean Corpuscular Hemoglobin Concent 32.4 Red Cell Distribution Width 13.4 Platelet Count 118 L Mean Platelet Volume 13.4 H Neutrophils % 81.5 H Lymphocytes % 9.7 L Monocytes % 6.5 Eosinophils % 1.4 Basophils % 0.2 Nucleated Red Blood Cells % 0.0 Neutrophils # 14.1 H Lymphocytes # 1.7 Monocytes # 1.1 H Eosinophils # 0.3 Basophils # 0.0 Nucleated Red Blood Cells # 0.0 Sodium Level 136 Potassium Level 3.8 Chloride Level 101 Carbon Dioxide Level 28 Anion Gap 11 Blood Urea Nitrogen 16 Creatinine 0.50 Glucose Level 97 Calcium Level 8.5 Medications Medications Current Medications Metoclopramide HCl (Reglan) 10 mg Q6H PRN IV NAUSEA AND/OR VOMITING; Start 08/06 at 05:30 Acetaminophen (Tylenol Tab) 650 mg Q6H PRN PO PAIN LEVEL 1-3 OR FEVER; Start at 05:30 Morphine Sulfate (morphine) 2 mg Q4H PRN IV SEVERE PAIN LEVEL 7-10 Last administered on 08/11/16 11:03; Admin Dose 2 MG; Start 08/06/16 at 05:30 Famotidine (Pepcid Iv) 20 mg Q12 IV Last administered on 08/12/16 08:14; Admin Dose 20 MG; Start 08/06/16 at 09:00 Lorazepam 1 mg 1 mg Q6H PRN IV AGITATION/ANXIETY Last administered on 10:08; Admin Dose 1 MG; Start 08/07/16 at 11:00 Dextrose/Sodium Chloride (D5-1/2ns) 1,000 ml @ 75 mls/hr [id number] IV Last administered on 08/11/16 20:52; Admin Dose 75 MLS/HR; Start 08/09/16 at 10:00 Fluconazole (Diflucan) 200 mg DAILY GTB Last administered on 08/12/16 08:15; Admin Dose 200 MG; Start 08/10/16 at 11:00 Bisoprolol Fumarate (Zebeta) 5 mg BID PO Last administered on 08/12/16 08:23; Admin Dose 5 MG; Start 08/10/16 at 14:30 Levofloxacin (Levaquin) 500 mg DAILY@06 GTB Last administered on 08/12/16 06: 08; Admin Dose 500 MG; Start 08/12/16 at 06:00 KARUNA ALDRICH Aug 12, 2016 11:38
[2016-08-12] MEDS: morphine 2 MG INJ IV PRN ×2 (12:29→20:25)
--- NOTE | 2016-08-12 12:36 | CONS ---
Date/Time of Note Date/Time of Note DATE: 08/12/16 TIME: 12:35 Assessment/Plan Assessment/Plan Additional Assessment/Plan Dysphagia S/p EGD + PEG: Uneventful percutaneous endoscopic gastrostomy tube placement with placement of [place] 20 gastrostomy tube with no incident or complication. Monitor tube feed Q6hrs, hold for residuals greater 150 mL Cleanse site and change dressing daily Nutrition recommendations: TF: Fibersource HN @ 55 ml/hr= 1584 kcals/71 g pro/ 1069 ml h2o. Flush with 100 mL q 6 hours. 1469 mL total h2o, ~37 kcals, 1.7 g pro/kg ABW. Add 500 mg vit c BID for wounds. Lewy Body Dementia Psychosis Management per Primary Hypothyroidism Continue supplementation per primary Hypertension Atrial Fibrillation History of angioplasty Cardiology following Further recommendations depend on clinical course Patient seen in collaboration with Dr. Chua Consultation Date/Type/Reason Admit Date/Time Aug 08, 2016 at 10:14 Initial Consult Date 08/07/16 Type of Consultation: GI 24 HR Interval Summary Free Text/Dictation Tube feed at goal rate with minimal residual GI sign off Available as needed Exam/Review of Systems Vital Signs Vitals Vital Signs Date Time Temp Pulse Resp B/P Pulse Ox O2 Delivery O2 Flow Rate FiO2 08/12/16 12:31 106 08/12/16 11:53 98.4 20 114/58 96 08/12/16 08:00 Nasal Cannula 3.0 Intake and Output 08/11/16 08/11/16 08/12/16 15:00 23:00 07:00 Intake Total 885 ml 750 ml Output Total 700 ml 550 ml Balance 185 ml 200 ml Exam Constitutional: non-verbal Respiratory: clear to auscultation, diminished breath sounds Cardiovascular: nl pulses, regular rate and rhythm Gastrointestinal: non-tender, other (g tube in placed ,no leak), soft Results Result Diagram: 08/12/16 0623 08/12/16 0623 Results 24 hrs Laboratory Tests Test 08/12/16 06:23 White Blood Count 17.3 #H Red Blood Count 3.36 L Hemoglobin 11.5 L Hematocrit 35.5 L Mean Corpuscular Volume 105.7 H Mean Corpuscular Hemoglobin 34.2 H Mean Corpuscular Hemoglobin Concent 32.4 Red Cell Distribution Width 13.4 Platelet Count 118 L Mean Platelet Volume 13.4 H Neutrophils % 81.5 H Lymphocytes % 9.7 L Monocytes % 6.5 Eosinophils % 1.4 Basophils % 0.2 Nucleated Red Blood Cells % 0.0 Neutrophils # 14.1 H Lymphocytes # 1.7 Monocytes # 1.1 H Eosinophils # 0.3 Basophils # 0.0 Nucleated Red Blood Cells # 0.0 Sodium Level 136 Potassium Level 3.8 Chloride Level 101 Carbon Dioxide Level 28 Anion Gap 11 Blood Urea Nitrogen 16 Creatinine 0.50 Glucose Level 97 Calcium Level 8.5 Medications Medications Current Medications Metoclopramide HCl (Reglan) 10 mg Q6H PRN IV NAUSEA AND/OR VOMITING; Start 08/06 at 05:30 Acetaminophen (Tylenol Tab) 650 mg Q6H PRN PO PAIN LEVEL 1-3 OR FEVER; Start at 05:30 Morphine Sulfate (morphine) 2 mg Q4H PRN IV SEVERE PAIN LEVEL 7-10 Last administered on 08/12/16 12:29; Admin Dose 2 MG; Start 08/06/16 at 05:30 Famotidine (Pepcid Iv) 20 mg Q12 IV Last administered on 08/12/16 08:14; Admin Dose 20 MG; Start 08/06/16 at 09:00 Lorazepam 1 mg 1 mg Q6H PRN IV AGITATION/ANXIETY Last administered on 10:08; Admin Dose 1 MG; Start 08/07/16 at 11:00 Dextrose/Sodium Chloride (D5-1/2ns) 1,000 ml @ 75 mls/hr [id number] IV Last administered on 08/12/16 12:29; Admin Dose 75 MLS/HR; Start 08/09/16 at 10:00 Fluconazole (Diflucan) 200 mg DAILY GTB Last administered on 08/12/16 08:15; Admin Dose 200 MG; Start 08/10/16 at 11:00 Bisoprolol Fumarate (Zebeta) 5 mg BID PO Last administered on 08/12/16 08:23; Admin Dose 5 MG; Start 08/10/16 at 14:30 Levofloxacin (Levaquin) 500 mg DAILY@06 GTB Last administered on 08/12/16 06: 08; Admin Dose 500 MG; Start 08/12/16 at 06:00 LELA SOOD Aug 12, 2016 12:36
[2016-08-13] VITALS (23 sets, daily range): BP systolic 98–146; BP diastolic 56–94; PULSE 74–135; RESP 18–21
--- NOTE | 2016-08-13 05:12 | PN ---
DATE: 08/12/2016 SUBJECTIVE: Patient is restless, lying in bed. No fevers. She is nonverbal, noncommunicative: LABORATORY DATA: WBC 17.3, H and H 11.5 and 35.5, platelets 118, neutrophils 81.5, BUN 16, creatini ne 0.50. MICROBIOLOGY: Urine culture grew VRE and Yadira albicans. INDWELLINGS: Benavides, PEG. ANTIMICROBIALS: Patient is on Fluconazole and Levaquin. PHYSICAL EXAMINATION: GENERAL: Chronically ill-appearing, elderly woman in no distress. HEENT: Head atraumatic, normocephalic. Sclerae anicteric. Buccal mucosa dry. NECK: Supple, trachea midline. CHEST: Rise symmetrical. Breath sounds diminished to bases. HEART: S1, S2. ABDOMEN: Soft. Bowel sounds present. ASSESSMENT: 1. Systemic inflammatory response syndrome. 2. Polymicrobial urinary tract infection. 3. Leukocytosis, possibly reactive. 4. History of Clostridium difficile colitis. 5. Dysphagia. 6. History of psychiatric problems. PLAN: The patient remains stable. Continue present care, antibiotics, anti-aspiration measures. F elizabeth recommendations of consultants. Dictated By: MIO TIRADO SOUND ENGINEER for MARIA G MCLEAN MD NI/NTS Conf#: [id number] DID#: [id number] CC: GENNARO EID MD; NATHANIEL BEE MD;*End*
[2016-08-13] MEDS: LEVOFLOXACIN 500 MG TAB GTB SCH (05:45)
[2016-08-13 06:33] LABS: ADD SCAN DIFF NO
[2016-08-13 06:50] LABS: BASOPHILS % 0.2 % (0.0-2.0); EOSINOPHILS # 0.5 10^3/ul (0.0-0.5); EOSINOPHILS % 3.7 % (0.0-7.0); HEMATOCRIT 35.9 % (37.0-47.0); HEMOGLOBIN 11.8 g/dl (12.0-16.0); LYMPHOCYTES # 1.2 10^3/ul (0.8-2.9); LYMPHOCYTES % 9.6 % (15.0-51.0); MEAN CORPUSCULAR HEMOGLOBIN 34.5 pg (29.0-33.0); MEAN CORPUSCULAR HGB CONC 32.9 g/dl (32.0-37.0); MEAN PLATELET VOLUME 14.1 fl (7.4-10.4); MONOCYTES % 8.3 % (0.0-11.0); NEUTROPHIL # 9.4 10^3/ul (1.6-7.5); NEUTROPHILS % 77.9 % (39.0-77.0); PLATELET COUNT 126 10^3/UL (140-415); RED BLOOD COUNT 3.42 10^6/ul (4.20-5.40); RED CELL DISTRIBUTION WIDTH 13.2 % (11.5-14.5); WHITE BLOOD COUNT 12.1 10^3/ul (4.8-10.8)
[2016-08-13 06:55] LABS: POTASSIUM 3.8 mmol/L (3.5-5.1)
[2016-08-13 06:58] LABS: CREATININE 0.49 mg/dl (0.44-1.00)
[2016-08-13 06:59] LABS: CALCIUM 8.3 mg/dl (8.4-10.2)
[2016-08-13] MEDS: DEXTROSE 5%-0.45% NACL 1,000 ML IV SCH ×3 (07:20→16:30)
[2016-08-13] MEDS: FLUCONAZOLE 200 MG TAB GTB SCH (08:26)
[2016-08-13] MEDS: FAMOTIDINE 20 MG INJ IV SCH ×2 (08:27→21:09)
[2016-08-13] MEDS: BISOPROLOL 5 MG TAB PO SCH ×2 (08:27→21:10)
--- NOTE | 2016-08-13 08:49 | CONS ---
Date/Time of Note Date/Time of Note DATE: 08/13/16 TIME: 08:48 Assessment/Plan Assessment/Plan Chief Complaint/Hosp Course Atrial fibrillation with RVR: Occurs when pt is agitated. Otherwise controlled Acute on chronic systolic/diastolic heart failure: EF ~40%. Likely from tachycardia. Appears euvolemic on exam. Cardiomyopathy: EF 40%, likely tachycardia mediated. Dysphagia s/p g-tube: s/p g-tube 08/09 UTI Dementia: Agitated intermittently -bisoprolol 5 mg BID -next agent will be digoxin if further rate control is needed as BP is low Problems: Consultation Date/Type/Reason Admit Date/Time Aug 08, 2016 at 10:14 Initial Consult Date 08/07/16 Type of Consultation: Cardiology 24 HR Interval Summary Free Text/Dictation No o/n events. Rates mostly controlled. Exam/Review of Systems Vital Signs Vitals Vital Signs Date Time Temp Pulse Resp B/P Pulse Ox O2 Delivery O2 Flow Rate FiO2 08/13/16 08:41 125 08/13/16 07:20 98.6 18 146/94 94 08/13/16 06:00 Nasal Cannula 3.0 Intake and Output 08/12/16 08/12/16 08/13/16 15:00 23:00 07:00 Intake Total 1000 ml 800 ml 960 ml Output Total 400 ml 400 ml Balance 1000 ml 400 ml 560 ml Exam Constitutional: No alert, No oriented Head: atraumatic, normocephalic Neck: No jvd Respiratory: clear to auscultation Cardiovascular: No edema, No regular rate and rhythm (IRIR) Gastrointestinal: non-tender, soft Results Result Diagram: 08/13/16 0522 08/13/16 0522 Results 24 hrs Laboratory Tests Test 08/13/16 05:22 White Blood Count 12.1 #H Red Blood Count 3.42 L Hemoglobin 11.8 L Hematocrit 35.9 L Mean Corpuscular Volume 105.0 H Mean Corpuscular Hemoglobin 34.5 H Mean Corpuscular Hemoglobin Concent 32.9 Red Cell Distribution Width 13.2 Platelet Count 126 L Mean Platelet Volume 14.1 H Neutrophils % 77.9 H Lymphocytes % 9.6 L Monocytes % 8.3 Eosinophils % 3.7 Basophils % 0.2 Nucleated Red Blood Cells % 0.0 Neutrophils # 9.4 H Lymphocytes # 1.2 Monocytes # 1.0 H Eosinophils # 0.5 Basophils # 0.0 Nucleated Red Blood Cells # 0.0 Sodium Level 136 Potassium Level 3.8 Chloride Level 101 Carbon Dioxide Level 27 Anion Gap 12 Blood Urea Nitrogen 13 Creatinine 0.49 Glucose Level 99 Calcium Level 8.3 L Medications Medications Current Medications Metoclopramide HCl (Reglan) 10 mg Q6H PRN IV NAUSEA AND/OR VOMITING; Start 08/06 at 05:30 Acetaminophen (Tylenol Tab) 650 mg Q6H PRN PO PAIN LEVEL 1-3 OR FEVER; Start at 05:30 Morphine Sulfate (morphine) 2 mg Q4H PRN IV SEVERE PAIN LEVEL 7-10 Last administered on 08/12/16 20:25; Admin Dose 2 MG; Start 08/06/16 at 05:30 Famotidine (Pepcid Iv) 20 mg Q12 IV Last administered on 08/13/16 08:27; Admin Dose 20 MG; Start 08/06/16 at 09:00 Lorazepam 1 mg 1 mg Q6H PRN IV AGITATION/ANXIETY Last administered on 10:08; Admin Dose 1 MG; Start 08/07/16 at 11:00 Dextrose/Sodium Chloride (D5-1/2ns) 1,000 ml @ 75 mls/hr [id number] IV Last administered on 08/12/16 12:29; Admin Dose 75 MLS/HR; Start 08/09/16 at 10:00 Fluconazole (Diflucan) 200 mg DAILY GTB Last administered on 08/13/16 08:26; Admin Dose 200 MG; Start 08/10/16 at 11:00 Bisoprolol Fumarate (Zebeta) 5 mg BID PO Last administered on 08/13/16 08:27; Admin Dose 5 MG; Start 08/10/16 at 14:30 Levofloxacin (Levaquin) 500 mg DAILY@06 GTB Last administered on 08/13/16 05: 45; Admin Dose 500 MG; Start 08/12/16 at 06:00 RAFAEL SALGUERO Aug 13, 2016 08:49
--- NOTE | 2016-08-13 10:10 | PN ---
Date/Time of Note Date/Time of Note DATE: 08/13/16 TIME: 10:04 Assessment/Plan VTE Prophylaxis VTE Prophylaxis Intervention: SCD's Lines/Catheters IV Catheter Type (from Nrs): Peripheral IV Urinary Cath still in place: Yes Reason Cath still needed: urinary retention Assessment/Plan Chief Complaint/Hosp Course Assessment/Plan: 71F with: 1. Protein-Calorie Malnutrition - Resides at Board and Care, "G-Tube Came Out" , but it appears to have been out for an extended period of time, and now s/p g- Tube Placement earlier this admission. - monitor for now, continue G tube feeds as tolerated, f/u GI rec's 2. afib w/RVR - improved,. ECHO showed: Conclusions 1. Normal left ventricular wall thickness. Mild enlargement of left ventricle cavity. Mild global left ventricular systolic dysfunction. Ejection fraction is visually estimated at 40 %. 2. Moderate to severe mitral valve regurgitation. 3. Mild-moderate tricuspid regurgitation (may be underestimated). 4. Severe biatrial enlargement. 5. Estimated peak PA systolic pressure 28 mmHg based on RA pressure of 8 mmHg. - continue BB, f/u CV consult rec's - may start digoxin as well - monitor INR (takes Coumadin at home but held since admission) 3. Urinary Tract Infection - Bacteria and Yeast : + VRE and Yadira. Seen by ID team - continue Levaquin PO (based on ID rec's and sensitivities) and antifungal - f/u ID rec's 4. Oral Cancer - monitor 5. Lewy Body Dementia - f/u TSH,Vitamin B12l, RPR - ativan cautiously prn Problems: Subjective 24 Hr Interval Summary Free Text/Dictation Pt a bit agitated this AM. Exam/Review of Systems Vital Signs Vitals Vital Signs Date Time Temp Pulse Resp B/P Pulse Ox O2 Delivery O2 Flow Rate FiO2 08/13/16 08:53 Nasal Cannula 3.0 08/13/16 08:41 125 08/13/16 08:00 98.6 18 146/94 94 Intake and Output 08/12/16 08/12/16 08/13/16 15:00 23:00 07:00 Intake Total 1000 ml 800 ml 960 ml Output Total 400 ml 400 ml Balance 1000 ml 400 ml 560 ml Exam HEENT: less agitated, NAD presently NECK: Supple, no JVD noted, no cervical adenopathy, no carotid bruits heard. LUNGS: Fair breath sounds bilaterally. CARDIOVASCULAR: irregularly irregular ABDOMEN: Soft, nontender. No organomegaly or masses noted. EXTREMITIES: No clubbing or cyanosis noted. NEUROLOGIC: No changes Results Result Diagram: 08/13/1652108/13/16521 Results 24 hrs Laboratory Tests Test 08/13/16 05:22 White Blood Count 12.1 #H Red Blood Count 3.42 L Hemoglobin 11.8 L Hematocrit 35.9 L Mean Corpuscular Volume 105.0 H Mean Corpuscular Hemoglobin 34.5 H Mean Corpuscular Hemoglobin Concent 32.9 Red Cell Distribution Width 13.2 Platelet Count 126 L Mean Platelet Volume 14.1 H Neutrophils % 77.9 H Lymphocytes % 9.6 L Monocytes % 8.3 Eosinophils % 3.7 Basophils % 0.2 Nucleated Red Blood Cells % 0.0 Neutrophils # 9.4 H Lymphocytes # 1.2 Monocytes # 1.0 H Eosinophils # 0.5 Basophils # 0.0 Nucleated Red Blood Cells # 0.0 Sodium Level 136 Potassium Level 3.8 Chloride Level 101 Carbon Dioxide Level 27 Anion Gap 12 Blood Urea Nitrogen 13 Creatinine 0.49 Glucose Level 99 Calcium Level 8.3 L Medications Medications Current Medications Metoclopramide HCl (Reglan) 10 mg Q6H PRN IV NAUSEA AND/OR VOMITING; Start 08/06 at 05:30 Acetaminophen (Tylenol Tab) 650 mg Q6H PRN PO PAIN LEVEL 1-3 OR FEVER; Start at 05:30 Morphine Sulfate (morphine) 2 mg Q4H PRN IV SEVERE PAIN LEVEL 7-10 Last administered on 08/12/16 20:25; Admin Dose 2 MG; Start 08/06/16 at 05:30 Famotidine (Pepcid Iv) 20 mg Q12 IV Last administered on 08/13/16 08:27; Admin Dose 20 MG; Start 08/06/16 at 09:00 Lorazepam 1 mg 1 mg Q6H PRN IV AGITATION/ANXIETY Last administered on 10:08; Admin Dose 1 MG; Start 08/07/16 at 11:00 Dextrose/Sodium Chloride (D5-1/2ns) 1,000 ml @ 75 mls/hr [id number] IV Last administered on 08/12/16 12:29; Admin Dose 75 MLS/HR; Start 08/09/16 at 10:00 Fluconazole (Diflucan) 200 mg DAILY GTB Last administered on 08/13/16 08:26; Admin Dose 200 MG; Start 08/10/16 at 11:00 Bisoprolol Fumarate (Zebeta) 5 mg BID PO Last administered on 08/13/16 08:27; Admin Dose 5 MG; Start 08/10/16 at 14:30 Levofloxacin (Levaquin) 500 mg DAILY@06 GTB Last administered on 08/13/16 05: 45; Admin Dose 500 MG; Start 08/12/16 at 06:00 KARUNA ALDRICH Aug 13, 2016 10:10
[2016-08-13] MEDS: LORAZEPAM 2 MG INJ IV PRN ×2 (10:16→16:30)
--- NOTE | 2016-08-13 14:27 | PN ---
Date/Time of Note Date/Time of Note DATE: 08/13/16 TIME: 14:25 Assessment/Plan VTE Prophylaxis VTE Prophylaxis Intervention: SCD's, other Lines/Catheters IV Catheter Type (from Nrs): Peripheral IV Urinary Cath still in place: Yes Reason Cath still needed: urinary retention Assessment/Plan Assessment/Plan Dysphagia * S/P PEG dislodgement 08/06/2016 * PEG reinserted 08/09/2016 * Atrial fibrillation with RVR * Dementia * Urinary tract infection * PLAN resume tube feeding continue present management Subjective 24 Hr Interval Summary Free Text/Dictation * Course reviewed with RN * Patient seen and examined * tolerating tube feeding ,no residuals Exam/Review of Systems Vital Signs Vitals Vital Signs Date Time Temp Pulse Resp B/P Pulse Ox O2 Delivery O2 Flow Rate FiO2 08/13/16 14:00 98.8 98 18 118/56 99 Nasal Cannula 3.0 Intake and Output 08/12/16 08/12/16 08/13/16 15:00 23:00 07:00 Intake Total 1000 ml 800 ml 960 ml Output Total 400 ml 400 ml Balance 1000 ml 400 ml 560 ml Exam Constitutional: frail Respiratory: diminished breath sounds, normal air movement Cardiovascular: nl pulses, regular rate and rhythm Gastrointestinal: bowel sounds, non-tender, other (g tube in placed ,no leak), soft, No rebound or guarding Results Result Diagram: 08/13/16 0522 08/13/16 0522 Results 24 hrs Laboratory Tests Test 08/13/16 05:22 White Blood Count 12.1 #H Red Blood Count 3.42 L Hemoglobin 11.8 L Hematocrit 35.9 L Mean Corpuscular Volume 105.0 H Mean Corpuscular Hemoglobin 34.5 H Mean Corpuscular Hemoglobin Concent 32.9 Red Cell Distribution Width 13.2 Platelet Count 126 L Mean Platelet Volume 14.1 H Neutrophils % 77.9 H Lymphocytes % 9.6 L Monocytes % 8.3 Eosinophils % 3.7 Basophils % 0.2 Nucleated Red Blood Cells % 0.0 Neutrophils # 9.4 H Lymphocytes # 1.2 Monocytes # 1.0 H Eosinophils # 0.5 Basophils # 0.0 Nucleated Red Blood Cells # 0.0 Sodium Level 136 Potassium Level 3.8 Chloride Level 101 Carbon Dioxide Level 27 Anion Gap 12 Blood Urea Nitrogen 13 Creatinine 0.49 Glucose Level 99 Calcium Level 8.3 L Medications Medications Current Medications Metoclopramide HCl (Reglan) 10 mg Q6H PRN IV NAUSEA AND/OR VOMITING; Start 08/06 at 05:30 Acetaminophen (Tylenol Tab) 650 mg Q6H PRN PO PAIN LEVEL 1-3 OR FEVER; Start at 05:30 Morphine Sulfate (morphine) 2 mg Q4H PRN IV SEVERE PAIN LEVEL 7-10 Last administered on 08/12/16 20:25; Admin Dose 2 MG; Start 08/06/16 at 05:30 Famotidine (Pepcid Iv) 20 mg Q12 IV Last administered on 08/13/16 08:27; Admin Dose 20 MG; Start 08/06/16 at 09:00 Lorazepam 1 mg 1 mg Q6H PRN IV AGITATION/ANXIETY Last administered on 10:16; Admin Dose 1 MG; Start 08/07/16 at 11:00 Dextrose/Sodium Chloride (D5-1/2ns) 1,000 ml @ 75 mls/hr [id number] IV Last administered on 08/12/16 12:29; Admin Dose 75 MLS/HR; Start 08/09/16 at 10:00 Fluconazole (Diflucan) 200 mg DAILY GTB Last administered on 08/13/16 08:26; Admin Dose 200 MG; Start 08/10/16 at 11:00 Bisoprolol Fumarate (Zebeta) 5 mg BID PO Last administered on 08/13/16 08:27; Admin Dose 5 MG; Start 08/10/16 at 14:30 Levofloxacin (Levaquin) 500 mg DAILY@06 GTB Last administered on 08/13/16 05: 45; Admin Dose 500 MG; Start 08/12/16 at 06:00 AGUSTIN ROSA MD Aug 13, 2016 14:27
--- NOTE | 2016-08-13 20:21 | CONS ---
Date/Time of Note Date/Time of Note DATE: 08/13/16 TIME: 20:20 Assessment/Plan Assessment/Plan Chief Complaint/Hosp Course SUBJECTIVE: No events, lying in bed. No fevers. She is nonverbal, noncommunicative: MICROBIOLOGY: Urine culture grew VRE and Yadira albicans. INDWELLINGS: Benavides, PEG. ANTIMICROBIALS: Fluconazole and Levaquin. PHYSICAL EXAMINATION: GENERAL: Chronically ill-appearing, elderly woman in no distress. HEENT: Head atraumatic, normocephalic. Sclerae anicteric. Buccal mucosa dry. NECK: Supple, trachea midline. CHEST: Rise symmetrical. Breath sounds diminished to bases. HEART: S1, S2. ABDOMEN: Soft. Bowel sounds present. ASSESSMENT: 1. Systemic inflammatory response syndrome. 2. Polymicrobial urinary tract infection. 3. Leukocytosis, possibly reactive. 4. History of Clostridium difficile colitis. 5. Dysphagia, s/p new PEG. 6. History of psychiatric problems. PLAN: The patient remains stable. WBC decreasing. Continue present care, anti- aspiration measures. GI rec-s. staff Problems: Consultation Date/Type/Reason Admit Date/Time Aug 08, 2016 at 10:14 Initial Consult Date 08/07/16 Type of Consultation: ID Exam/Review of Systems Vital Signs Vitals Vital Signs Date Time Temp Pulse Resp B/P Pulse Ox O2 Delivery O2 Flow Rate FiO2 08/13/16 18:00 98.1 81 18 129/67 95 Nasal Cannula 3.0 Intake and Output 08/12/16 08/12/16 08/13/16 15:00 23:00 07:00 Intake Total 1000 ml 1175 ml 960 ml Output Total 400 ml 400 ml Balance 1000 ml 775 ml 560 ml Results Result Diagram: 08/13/16 0522 08/13/16 0522 Results 24 hrs Laboratory Tests Test 08/13/16 05:22 White Blood Count 12.1 #H Red Blood Count 3.42 L Hemoglobin 11.8 L Hematocrit 35.9 L Mean Corpuscular Volume 105.0 H Mean Corpuscular Hemoglobin 34.5 H Mean Corpuscular Hemoglobin Concent 32.9 Red Cell Distribution Width 13.2 Platelet Count 126 L Mean Platelet Volume 14.1 H Neutrophils % 77.9 H Lymphocytes % 9.6 L Monocytes % 8.3 Eosinophils % 3.7 Basophils % 0.2 Nucleated Red Blood Cells % 0.0 Neutrophils # 9.4 H Lymphocytes # 1.2 Monocytes # 1.0 H Eosinophils # 0.5 Basophils # 0.0 Nucleated Red Blood Cells # 0.0 Sodium Level 136 Potassium Level 3.8 Chloride Level 101 Carbon Dioxide Level 27 Anion Gap 12 Blood Urea Nitrogen 13 Creatinine 0.49 Glucose Level 99 Calcium Level 8.3 L Medications Medications Current Medications Metoclopramide HCl (Reglan) 10 mg Q6H PRN IV NAUSEA AND/OR VOMITING; Start 08/06 at 05:30 Acetaminophen (Tylenol Tab) 650 mg Q6H PRN PO PAIN LEVEL 1-3 OR FEVER; Start at 05:30 Morphine Sulfate (morphine) 2 mg Q4H PRN IV SEVERE PAIN LEVEL 7-10 Last administered on 08/12/16 20:25; Admin Dose 2 MG; Start 08/06/16 at 05:30 Famotidine (Pepcid Iv) 20 mg Q12 IV Last administered on 08/13/16 08:27; Admin Dose 20 MG; Start 08/06/16 at 09:00 Lorazepam 1 mg 1 mg Q6H PRN IV AGITATION/ANXIETY Last administered on 16:30; Admin Dose 1 MG; Start 08/07/16 at 11:00 Dextrose/Sodium Chloride (D5-1/2ns) 1,000 ml @ 75 mls/hr [id number] IV Last administered on 08/13/16 16:30; Admin Dose 75 MLS/HR; Start 08/09/16 at 10:00 Fluconazole (Diflucan) 200 mg DAILY GTB Last administered on 08/13/16 08:26; Admin Dose 200 MG; Start 08/10/16 at 11:00 Bisoprolol Fumarate (Zebeta) 5 mg BID PO Last administered on 08/13/16 08:27; Admin Dose 5 MG; Start 08/10/16 at 14:30 Levofloxacin (Levaquin) 500 mg DAILY@06 GTB Last administered on 08/13/16 05: 45; Admin Dose 500 MG; Start 08/12/16 at 06:00 MIO TIRADO NP Aug 13, 2016 20:21
[2016-08-13] MEDS: morphine 2 MG INJ IV PRN (21:11)
[2016-08-14] VITALS (15 sets, daily range): BP systolic 2–135; BP diastolic 58–83; PULSE 84–123; RESP 18–20
[2016-08-14] MEDS: DEXTROSE 5%-0.45% NACL 1,000 ML IV SCH ×3 (05:00→21:16)
[2016-08-14 05:47] LABS: ADD SCAN DIFF NO
[2016-08-14] MEDS: LEVOFLOXACIN 500 MG TAB GTB SCH (05:50)
[2016-08-14 06:53] LABS: BASOPHILS % 0.5 % (0.0-2.0); EOSINOPHILS # 0.4 10^3/ul (0.0-0.5); EOSINOPHILS % 5.1 % (0.0-7.0); HEMATOCRIT 39.3 % (37.0-47.0); HEMOGLOBIN 13.2 g/dl (12.0-16.0); LYMPHOCYTES # 1.4 10^3/ul (0.8-2.9); LYMPHOCYTES % 17.6 % (15.0-51.0); MEAN CORPUSCULAR HGB CONC 33.6 g/dl (32.0-37.0); MEAN CORPUSCULAR VOLUME 104.2 fl (82.0-101.0); MONOCYTE # 0.8 10^3/ul (0.3-0.9); MONOCYTES % 10.4 % (0.0-11.0); NEUTROPHIL # 5.3 10^3/ul (1.6-7.5); NEUTROPHILS % 66.1 % (39.0-77.0); PLATELET COUNT 145 10^3/UL (140-415); RED BLOOD COUNT 3.77 10^6/ul (4.20-5.40); WHITE BLOOD COUNT 7.9 10^3/ul (4.8-10.8)
[2016-08-14 07:07] LABS: CALCIUM 8.4 mg/dl (8.4-10.2); CREATININE 0.43 mg/dl (0.44-1.00); POTASSIUM 3.7 mmol/L (3.5-5.1)
[2016-08-14] MEDS: FLUCONAZOLE 200 MG TAB GTB SCH (09:29)
[2016-08-14] MEDS: BISOPROLOL 5 MG TAB PO SCH ×2 (09:29→21:18)
[2016-08-14] MEDS: FAMOTIDINE 20 MG INJ IV SCH (09:29)
--- NOTE | 2016-08-14 09:36 | CONS ---
Date/Time of Note Date/Time of Note DATE: 08/14/16 TIME: 09:34 Assessment/Plan Assessment/Plan Chief Complaint/Hosp Course Atrial fibrillation with RVR: Occurs when pt is agitated. Otherwise controlled Acute on chronic systolic/diastolic heart failure: EF ~40%. Likely from tachycardia. Appears euvolemic on exam. Cardiomyopathy: EF 40%, likely tachycardia mediated. Dysphagia s/p g-tube: s/p g-tube 08/09 UTI Dementia: Agitated intermittently -bisoprolol 5 mg BID -next agent will be digoxin if further rate control is needed as BP is low -will follow as needed. Please don't hesitate to call with questions/concerns Problems: Consultation Date/Type/Reason Admit Date/Time Aug 08, 2016 at 10:14 Initial Consult Date 08/07/16 Type of Consultation: Cardiology 24 HR Interval Summary Free Text/Dictation HR overall better Exam/Review of Systems Vital Signs Vitals Vital Signs Date Time Temp Pulse Resp B/P Pulse Ox O2 Delivery O2 Flow Rate FiO2 08/14/16 08:20 99 08/14/16 07:41 98.6 18 135/83 90 08/14/16 06:00 Nasal Cannula 3.0 Intake and Output 08/13/16 08/13/16 08/14/16 15:00 23:00 07:00 Intake Total 625 ml 687.5 ml 2035 ml Output Total 1500 ml 650 ml Balance 625 ml -812.5 ml 1385 ml Exam Constitutional: alert, No oriented Head: atraumatic, normocephalic Neck: No jvd Respiratory: clear to auscultation Cardiovascular: No edema, No regular rate and rhythm Gastrointestinal: soft, No non-tender Neurological: No nl mental status Results Result Diagram: 08/14/16 0500 08/14/16 0625 Results 24 hrs Laboratory Tests Test 08/14/16 05:00 08/14/16 06:25 White Blood Count 7.9 # Red Blood Count 3.77 L Hemoglobin 13.2 Hematocrit 39.3 Mean Corpuscular Volume 104.2 H Mean Corpuscular Hemoglobin 35.0 H Mean Corpuscular Hemoglobin Concent 33.6 Red Cell Distribution Width 13.0 Platelet Count 145 Mean Platelet Volume 13.0 H Neutrophils % 66.1 Lymphocytes % 17.6 Monocytes % 10.4 Eosinophils % 5.1 Basophils % 0.5 Nucleated Red Blood Cells % 0.0 Neutrophils # 5.3 Lymphocytes # 1.4 Monocytes # 0.8 Eosinophils # 0.4 Basophils # 0.0 Nucleated Red Blood Cells # 0.0 Sodium Level 137 Potassium Level 3.7 Chloride Level 102 Carbon Dioxide Level 30 Anion Gap 9 Blood Urea Nitrogen 10 Creatinine 0.43 L Glucose Level 103 Calcium Level 8.4 Medications Medications Current Medications Metoclopramide HCl (Reglan) 10 mg Q6H PRN IV NAUSEA AND/OR VOMITING; Start 08/06 at 05:30 Acetaminophen (Tylenol Tab) 650 mg Q6H PRN PO PAIN LEVEL 1-3 OR FEVER; Start at 05:30 Morphine Sulfate (morphine) 2 mg Q4H PRN IV SEVERE PAIN LEVEL 7-10 Last administered on 08/13/16 21:11; Admin Dose 2 MG; Start 08/06/16 at 05:30 Famotidine (Pepcid Iv) 20 mg Q12 IV Last administered on 08/14/16 09:29; Admin Dose 20 MG; Start 08/06/16 at 09:00 Lorazepam 1 mg 1 mg Q6H PRN IV AGITATION/ANXIETY Last administered on 16:30; Admin Dose 1 MG; Start 08/07/16 at 11:00 Dextrose/Sodium Chloride (D5-1/2ns) 1,000 ml @ 75 mls/hr [id number] IV Last administered on 08/14/16 09:28; Admin Dose 75 MLS/HR; Start 08/09/16 at 10:00 Fluconazole (Diflucan) 200 mg DAILY GTB Last administered on 08/14/16 09:29; Admin Dose 200 MG; Start 08/10/16 at 11:00 Bisoprolol Fumarate (Zebeta) 5 mg BID PO Last administered on 08/14/16 09:29; Admin Dose 5 MG; Start 08/10/16 at 14:30 Levofloxacin (Levaquin) 500 mg DAILY@06 GTB Last administered on 08/14/16 05: 50; Admin Dose 500 MG; Start 08/12/16 at 06:00 RAFAEL SALGUERO Aug 14, 2016 09:35
[2016-08-14] MEDS: LORAZEPAM 2 MG INJ IV PRN (09:39)
--- NOTE | 2016-08-14 15:11 | PN ---
Date/Time of Note Date/Time of Note DATE: 08/14/16 TIME: 15:04 Assessment/Plan VTE Prophylaxis VTE Prophylaxis Intervention: SCD's Lines/Catheters IV Catheter Type (from [facility]): Peripheral IV Urinary Cath still in place: Yes Reason Cath still needed: urinary retention Assessment/Plan Assessment/Plan Assessment * Diarrhea * Dysphagia * S/P PEG dislodgement 08/06/2016 * PEG reinserted 08/09/2016 * Atrial fibrillation with RVR * Dementia * Urinary tract infection * PLAN continue present management stool for c difficile adequate hydration Subjective 24 Hr Interval Summary Free Text/Dictation * Course reviewed with RN * patient seen and examined * episodes of diarrhea watery, mucoid no blood * tolerating diet Subjective hx not possible: pt non-verbal Exam/Review of Systems Vital Signs Vitals Vital Signs Date Time Temp Pulse Resp B/P Pulse Ox O2 Delivery O2 Flow Rate FiO2 08/14/16 12:23 123 08/14/16 12:09 98.0 18 110/70 93 08/14/16 10:19 Nasal Cannula 3.0 Intake and Output 08/13/16 08/13/16 08/14/16 15:00 23:00 07:00 Intake Total 625 ml 687.5 ml 2035 ml Output Total 1500 ml 650 ml Balance 625 ml -812.5 ml 1385 ml Exam Constitutional: frail Neck: supple Respiratory: clear to auscultation, diminished breath sounds Cardiovascular: nl pulses, regular rate and rhythm Gastrointestinal: nl liver, spleen, non-tender, other (g tube in placed,no leak ), soft Results Result Diagram: 08/14/16 0500 08/14/16 0625 Results 24 hrs Laboratory Tests Test 08/14/16 05:00 08/14/16 06:25 White Blood Count 7.9 # Red Blood Count 3.77 L Hemoglobin 13.2 Hematocrit 39.3 Mean Corpuscular Volume 104.2 H Mean Corpuscular Hemoglobin 35.0 H Mean Corpuscular Hemoglobin Concent 33.6 Red Cell Distribution Width 13.0 Platelet Count 145 Mean Platelet Volume 13.0 H Neutrophils % 66.1 Lymphocytes % 17.6 Monocytes % 10.4 Eosinophils % 5.1 Basophils % 0.5 Nucleated Red Blood Cells % 0.0 Neutrophils # 5.3 Lymphocytes # 1.4 Monocytes # 0.8 Eosinophils # 0.4 Basophils # 0.0 Nucleated Red Blood Cells # 0.0 Sodium Level 137 Potassium Level 3.7 Chloride Level 102 Carbon Dioxide Level 30 Anion Gap 9 Blood Urea Nitrogen 10 Creatinine 0.43 L Glucose Level 103 Calcium Level 8.4 Medications Medications Current Medications Metoclopramide HCl (Reglan) 10 mg Q6H PRN IV NAUSEA AND/OR VOMITING; Start 08/06 at 05:30 Acetaminophen (Tylenol Tab) 650 mg Q6H PRN PO PAIN LEVEL 1-3 OR FEVER; Start at 05:30 Morphine Sulfate (morphine) 2 mg Q4H PRN IV SEVERE PAIN LEVEL 7-10 Last administered on 08/13/16 21:11; Admin Dose 2 MG; Start 08/06/16 at 05:30 Lorazepam 1 mg 1 mg Q6H PRN IV AGITATION/ANXIETY Last administered on 09:39; Admin Dose 1 MG; Start 08/07/16 at 11:00 Dextrose/Sodium Chloride (D5-1/2ns) 1,000 ml @ 75 mls/hr [id number] IV Last administered on 08/14/16 09:28; Admin Dose 75 MLS/HR; Start 08/09/16 at 10:00 Fluconazole (Diflucan) 200 mg DAILY GTB Last administered on 08/14/16 09:29; Admin Dose 200 MG; Start 08/10/16 at 11:00 Bisoprolol Fumarate (Zebeta) 5 mg BID PO Last administered on 08/14/16 09:29; Admin Dose 5 MG; Start 08/10/16 at 14:30 Levofloxacin (Levaquin) 500 mg DAILY@06 GTB Last administered on 08/14/16 05: 50; Admin Dose 500 MG; Start 08/12/16 at 06:00 Famotidine (Pepcid) 20 mg DAILY GTB ; Start 08/15/16 at 09:00 AGUSTIN ROSA MD Aug 14, 2016 15:11
--- NOTE | 2016-08-14 15:27 | PN ---
Date/Time of Note Date/Time of Note DATE: 08/14/16 TIME: 15:20 Assessment/Plan VTE Prophylaxis VTE Prophylaxis Intervention: SCD's Lines/Catheters IV Catheter Type (from Nrsg): Peripheral IV Urinary Cath still in place: Yes Reason Cath still needed: other (indicate) Assessment/Plan Assessment/Plan 71F with: 1. Dislodged G-tube: replaced and functioning 2. Protein-Calorie Malnutrition likely 2/2 #9 3. Chronic Afib s/p RVR - 4. Chronic CM with Ejection fraction is visually estimated at 40 %. 5. Moderate to severe mitral valve regurgitation. 6. Moderate tricuspid regurgitation (may be underestimated) 7. Urinary Tract Infection - Bacteria and Yeast : + VRE and Yadira 8. Reported hx History of Oral Cancer 9. Chronic Lewy Body Dementia causing severe encephalopathy PLAN: * Plan is to try to wean restraints * continue G Subjective 24 Hr Interval Summary Subjective hx not possible: pt non-verbal Exam/Review of Systems Vital Signs Vitals Vital Signs Date Time Temp Pulse Resp B/P Pulse Ox O2 Delivery O2 Flow Rate FiO2 08/14/16 12:23 123 08/14/16 12:09 98.0 18 110/70 93 08/14/16 10:19 Nasal Cannula 3.0 Intake and Output 08/13/16 08/13/16 08/14/16 15:00 23:00 07:00 Intake Total 625 ml 687.5 ml 2035 ml Output Total 1500 ml 650 ml Balance 625 ml -812.5 ml 1385 ml Exam HEENT: less agitated, NAD presently NECK: Supple, no JVD noted, no cervical adenopathy, no carotid bruits heard. LUNGS: Fair breath sounds bilaterally. CARDIOVASCULAR: irregularly irregular ABDOMEN: Soft, nontender. No organomegaly or masses noted. EXTREMITIES: No clubbing or cyanosis noted. NEUROLOGIC: No changes Results Result Diagram: 08/14/16 0500 08/14/16 0625 Results 24 hrs Laboratory Tests Test 08/14/16 05:00 08/14/16 06:25 White Blood Count 7.9 # Red Blood Count 3.77 L Hemoglobin 13.2 Hematocrit 39.3 Mean Corpuscular Volume 104.2 H Mean Corpuscular Hemoglobin 35.0 H Mean Corpuscular Hemoglobin Concent 33.6 Red Cell Distribution Width 13.0 Platelet Count 145 Mean Platelet Volume 13.0 H Neutrophils % 66.1 Lymphocytes % 17.6 Monocytes % 10.4 Eosinophils % 5.1 Basophils % 0.5 Nucleated Red Blood Cells % 0.0 Neutrophils # 5.3 Lymphocytes # 1.4 Monocytes # 0.8 Eosinophils # 0.4 Basophils # 0.0 Nucleated Red Blood Cells # 0.0 Sodium Level 137 Potassium Level 3.7 Chloride Level 102 Carbon Dioxide Level 30 Anion Gap 9 Blood Urea Nitrogen 10 Creatinine 0.43 L Glucose Level 103 Calcium Level 8.4 Medications Medications Current Medications Metoclopramide HCl (Reglan) 10 mg Q6H PRN IV NAUSEA AND/OR VOMITING; Start 08/06 at 05:30 Acetaminophen (Tylenol Tab) 650 mg Q6H PRN PO PAIN LEVEL 1-3 OR FEVER; Start at 05:30 Morphine Sulfate (morphine) 2 mg Q4H PRN IV SEVERE PAIN LEVEL 7-10 Last administered on 08/13/16 21:11; Admin Dose 2 MG; Start 08/06/16 at 05:30 Lorazepam 1 mg 1 mg Q6H PRN IV AGITATION/ANXIETY Last administered on 09:39; Admin Dose 1 MG; Start 08/07/16 at 11:00 Dextrose/Sodium Chloride (D5-1/2ns) 1,000 ml @ 75 mls/hr [id number] IV Last administered on 08/14/16 09:28; Admin Dose 75 MLS/HR; Start 08/09/16 at 10:00 Fluconazole (Diflucan) 200 mg DAILY GTB Last administered on 08/14/16 09:29; Admin Dose 200 MG; Start 08/10/16 at 11:00 Bisoprolol Fumarate (Zebeta) 5 mg BID PO Last administered on 08/14/16 09:29; Admin Dose 5 MG; Start 08/10/16 at 14:30 Levofloxacin (Levaquin) 500 mg DAILY@06 GTB Last administered on 08/14/16 05: 50; Admin Dose 500 MG; Start 08/12/16 at 06:00 Famotidine (Pepcid) 20 mg DAILY GTB ; Start 08/15/16 at 09:00 HUSSAIN LOPEZ Aug 14, 2016 15:27
--- NOTE | 2016-08-14 15:33 | CONS ---
Date/Time of Note Date/Time of Note DATE: 08/14/16 TIME: 15:32 Assessment/Plan Assessment/Plan Chief Complaint/Hosp Course SUBJECTIVE: No events, restles, nad. No fevers. She is nonverbal, noncommunicative: MICROBIOLOGY: Urine culture grew VRE and Yadira albicans. INDWELLINGS: Benavides, PEG. ANTIMICROBIALS: Fluconazole and Levaquin. PHYSICAL EXAMINATION: GENERAL: Chronically ill-appearing, elderly woman in no distress. HEENT: Head atraumatic, normocephalic. Sclerae anicteric. Buccal mucosa dry. NECK: Supple, trachea midline. CHEST: Rise symmetrical. Breath sounds diminished to bases. HEART: S1, S2. ABDOMEN: Soft. Bowel sounds present. ASSESSMENT: 1. Systemic inflammatory response syndrome. 2. Polymicrobial urinary tract infection. 3. Leukocytosis, possibly reactive. 4. History of Clostridium difficile colitis. 5. Dysphagia, s/p new PEG. 6. History of psychiatric problems. PLAN: The patient remains stable. WBC decreasing. Continue present care, anti- aspiration measures. GI rec-s. staff Problems: Consultation Date/Type/Reason Admit Date/Time Aug 08, 2016 at 10:14 Initial Consult Date 08/07/16 Type of Consultation: ID Exam/Review of Systems Vital Signs Vitals Vital Signs Date Time Temp Pulse Resp B/P Pulse Ox O2 Delivery O2 Flow Rate FiO2 08/14/16 12:23 123 08/14/16 12:09 98.0 18 110/70 93 08/14/16 10:19 Nasal Cannula 3.0 Intake and Output 08/13/16 08/13/16 08/14/16 15:00 23:00 07:00 Intake Total 625 ml 687.5 ml 2035 ml Output Total 1500 ml 650 ml Balance 625 ml -812.5 ml 1385 ml Results Result Diagram: 08/14/16 0500 08/14/16 0625 Results 24 hrs Laboratory Tests Test 08/14/16 05:00 08/14/16 06:25 White Blood Count 7.9 # Red Blood Count 3.77 L Hemoglobin 13.2 Hematocrit 39.3 Mean Corpuscular Volume 104.2 H Mean Corpuscular Hemoglobin 35.0 H Mean Corpuscular Hemoglobin Concent 33.6 Red Cell Distribution Width 13.0 Platelet Count 145 Mean Platelet Volume 13.0 H Neutrophils % 66.1 Lymphocytes % 17.6 Monocytes % 10.4 Eosinophils % 5.1 Basophils % 0.5 Nucleated Red Blood Cells % 0.0 Neutrophils # 5.3 Lymphocytes # 1.4 Monocytes # 0.8 Eosinophils # 0.4 Basophils # 0.0 Nucleated Red Blood Cells # 0.0 Sodium Level 137 Potassium Level 3.7 Chloride Level 102 Carbon Dioxide Level 30 Anion Gap 9 Blood Urea Nitrogen 10 Creatinine 0.43 L Glucose Level 103 Calcium Level 8.4 Medications Medications Current Medications Metoclopramide HCl (Reglan) 10 mg Q6H PRN IV NAUSEA AND/OR VOMITING; Start 08/06 at 05:30 Acetaminophen (Tylenol Tab) 650 mg Q6H PRN PO PAIN LEVEL 1-3 OR FEVER; Start at 05:30 Morphine Sulfate (morphine) 2 mg Q4H PRN IV SEVERE PAIN LEVEL 7-10 Last administered on 08/13/16 21:11; Admin Dose 2 MG; Start 08/06/16 at 05:30 Lorazepam 1 mg 1 mg Q6H PRN IV AGITATION/ANXIETY Last administered on 09:39; Admin Dose 1 MG; Start 08/07/16 at 11:00 Dextrose/Sodium Chloride (D5-1/2ns) 1,000 ml @ 75 mls/hr [id number] IV Last administered on 08/14/16 09:28; Admin Dose 75 MLS/HR; Start 08/09/16 at 10:00 Fluconazole (Diflucan) 200 mg DAILY GTB Last administered on 08/14/16 09:29; Admin Dose 200 MG; Start 08/10/16 at 11:00 Bisoprolol Fumarate (Zebeta) 5 mg BID PO Last administered on 08/14/16 09:29; Admin Dose 5 MG; Start 08/10/16 at 14:30 Levofloxacin (Levaquin) 500 mg DAILY@06 GTB Last administered on 08/14/16 05: 50; Admin Dose 500 MG; Start 08/12/16 at 06:00 Famotidine (Pepcid) 20 mg DAILY GTB ; Start 08/15/16 at 09:00 Quetiapine Fumarate (Seroquel) 25 mg BID PO ; Start 08/14/16 at 21:00 MIO TIRADO NP Aug 14, 2016 15:33
[2016-08-14] MEDS: QUETIAPINE 25 MG TAB PO SCH (21:16)
[2016-08-15] VITALS (18 sets, daily range): BP systolic 109–160; BP diastolic 66–97; PULSE 72–119; RESP 18–20
[2016-08-15] MEDS: LEVOFLOXACIN 500 MG TAB GTB SCH (05:33)
[2016-08-15 07:52] LABS: ADD SCAN DIFF NO
[2016-08-15 07:57] LABS: BASOPHILS % 0.4 % (0.0-2.0); EOSINOPHILS # 0.3 10^3/ul (0.0-0.5); EOSINOPHILS % 4.3 % (0.0-7.0); HEMATOCRIT 35.6 % (37.0-47.0); HEMOGLOBIN 11.5 g/dl (12.0-16.0); LYMPHOCYTES # 1.4 10^3/ul (0.8-2.9); LYMPHOCYTES % 18.8 % (15.0-51.0); MEAN CORPUSCULAR HEMOGLOBIN 33.7 pg (29.0-33.0); MEAN CORPUSCULAR HGB CONC 32.3 g/dl (32.0-37.0); MEAN CORPUSCULAR VOLUME 104.4 fl (82.0-101.0); MEAN PLATELET VOLUME 13.4 fl (7.4-10.4); MONOCYTE # 0.8 10^3/ul (0.3-0.9); MONOCYTES % 10.1 % (0.0-11.0); NEUTROPHILS % 66.3 % (39.0-77.0); PLATELET COUNT 156 10^3/UL (140-415); RED BLOOD COUNT 3.41 10^6/ul (4.20-5.40); RED CELL DISTRIBUTION WIDTH 13.2 % (11.5-14.5); WHITE BLOOD COUNT 7.6 10^3/ul (4.8-10.8)
[2016-08-15 08:22] LABS: POTASSIUM 3.2 mmol/L (3.5-5.1)
[2016-08-15 08:25] LABS: CALCIUM 8.5 mg/dl (8.4-10.2); CREATININE 0.46 mg/dl (0.44-1.00)
[2016-08-15] MEDS: BISOPROLOL 5 MG TAB PO SCH ×2 (08:50→21:09)
[2016-08-15] MEDS: QUETIAPINE 25 MG TAB PO SCH ×2 (08:50→21:09)
[2016-08-15] MEDS: FLUCONAZOLE 200 MG TAB GTB SCH (08:51)
[2016-08-15] MEDS: FAMOTIDINE 20 MG TAB GTB SCH (08:51)
--- NOTE | 2016-08-15 10:42 | PN ---
Date/Time of Note Date/Time of Note DATE: 08/15/16 TIME: 10:40 Assessment/Plan VTE Prophylaxis VTE Prophylaxis Intervention: SCD's Lines/Catheters IV Catheter Type (from Nrsg): Peripheral IV Urinary Cath still in place: Yes Reason Cath still needed: other (indicate) Assessment/Plan Assessment/Plan 71F with: 1. Dislodged G-tube: replaced and functioning 2. Protein-Calorie Malnutrition likely 2/2 #9 3. Chronic Afib s/p RVR - 4. Chronic CM with Ejection fraction is visually estimated at 40 %. 5. Moderate to severe mitral valve regurgitation. 6. Moderate tricuspid regurgitation (may be underestimated) 7. Urinary Tract Infection - Bacteria and Yeast : + VRE and Yadira 8. Reported hx History of Oral Cancer 9. Chronic Lewy Body Dementia causing severe encephalopathy PLAN: * Plan is to try to wean restraints * continue G- tube feeds * increase seroquel dose,. we can titrate down once patient is more comfortable * Continue supportive care Subjective 24 Hr Interval Summary Free Text/Dictation still very confused Subjective hx not possible: pt non-verbal Exam/Review of Systems Vital Signs Vitals Vital Signs Date Time Temp Pulse Resp B/P Pulse Ox O2 Delivery O2 Flow Rate FiO2 08/15/16 08:23 117 08/15/16 07:25 97.9 19 117/76 95 08/15/16 06:15 Nasal Cannula 3.0 Intake and Output 08/14/16 08/14/16 08/15/16 15:00 23:00 07:00 Intake Total 2200 ml 1520 ml Output Total 700 ml 1500 ml Balance 1500 ml 20 ml Exam HEENT: quite agitated , pulling a restrainst, trying to get off the bed NECK: Supple, no JVD noted, no cervical adenopathy, no carotid bruits heard. LUNGS: Fair breath sounds bilaterally. CARDIOVASCULAR: irregularly irregular ABDOMEN: Soft, nontender. No organomegaly or masses noted. EXTREMITIES: No clubbing or cyanosis noted. NEUROLOGIC: No changes Results Result Diagram: 08/15/16 0636 08/15/16 0636 Results 24 hrs Laboratory Tests Test 08/15/16 06:36 White Blood Count 7.6 Red Blood Count 3.41 L Hemoglobin 11.5 L Hematocrit 35.6 L Mean Corpuscular Volume 104.4 H Mean Corpuscular Hemoglobin 33.7 H Mean Corpuscular Hemoglobin Concent 32.3 Red Cell Distribution Width 13.2 Platelet Count 156 Mean Platelet Volume 13.4 H Neutrophils % 66.3 Lymphocytes % 18.8 Monocytes % 10.1 Eosinophils % 4.3 Basophils % 0.4 Nucleated Red Blood Cells % 0.0 Neutrophils # 5.0 Lymphocytes # 1.4 Monocytes # 0.8 Eosinophils # 0.3 Basophils # 0.0 Nucleated Red Blood Cells # 0.0 Sodium Level 139 Potassium Level 3.2 L Chloride Level 100 Carbon Dioxide Level 30 Anion Gap 12 Blood Urea Nitrogen 10 Creatinine 0.46 Glucose Level 95 Calcium Level 8.5 Medications Medications Current Medications Metoclopramide HCl (Reglan) 10 mg Q6H PRN IV NAUSEA AND/OR VOMITING; Start 08/06 at 05:30 Acetaminophen (Tylenol Tab) 650 mg Q6H PRN PO PAIN LEVEL 1-3 OR FEVER; Start at 05:30 Morphine Sulfate (morphine) 2 mg Q4H PRN IV SEVERE PAIN LEVEL 7-10 Last administered on 08/13/16 21:11; Admin Dose 2 MG; Start 08/06/16 at 05:30 Lorazepam 1 mg 1 mg Q6H PRN IV AGITATION/ANXIETY Last administered on 09:39; Admin Dose 1 MG; Start 08/07/16 at 11:00 Dextrose/Sodium Chloride (D5-1/2ns) 1,000 ml @ 75 mls/hr [id number] IV Last administered on 08/14/16 21:16; Admin Dose 75 MLS/HR; Start 08/09/16 at 10:00 Fluconazole (Diflucan) 200 mg DAILY GTB Last administered on 08/15/16 08:51; Admin Dose 200 MG; Start 08/10/16 at 11:00 Bisoprolol Fumarate (Zebeta) 5 mg BID PO Last administered on 08/15/16 08:50; Admin Dose 5 MG; Start 08/10/16 at 14:30 Levofloxacin (Levaquin) 500 mg DAILY@06 GTB Last administered on 08/15/16 05: 33; Admin Dose 500 MG; Start 08/12/16 at 06:00 Famotidine (Pepcid) 20 mg DAILY GTB Last administered on 08/15/16 08:51; Admin Dose 20 MG; Start 08/15/16 at 09:00 Quetiapine Fumarate (Seroquel) 25 mg BID PO Last administered on 08/15/16t 08: 50; Admin Dose 25 MG; Start 08/14/16 at 21:00 HUSSAIN LOPEZ Aug 15, 2016 10:42
[2016-08-15] MEDS ORDERED: QUETIAPINE 25 MG TAB PO ONE (11:00)
[2016-08-15] MEDS ORDERED: POTASSIUM CHLORIDE 250 ML IVPB ONE (11:00)
[2016-08-15] MEDS ORDERED: QUET25TA33 PO (14:43)
[2016-08-15] MEDS ORDERED: FAMO20TA18 GTB (14:43)
[2016-08-15] MEDS ORDERED: LEVO75TA5 PO (14:43)
[2016-08-15] MEDS ORDERED: LEVO500T72 GTB (14:43)
[2016-08-15] MEDS ORDERED: FLUC200T36 GTB (14:43)
[2016-08-15] MEDS ORDERED: BISO5TAB21 PO (14:55)
--- NOTE | 2016-08-15 14:56 | DS ---
Date/Time of Note Date/Time of Note DATE: 08/15/16 TIME: 14:43 Discharge Summary Admission/Discharge Info Admit Date/Time Aug 08, 2016 at 10:14 Discharge Date/Time 08/15/2016 Final Diagnosis 71F with: 1. Dislodged G-tube: replaced and functioning 2. Protein-Calorie Malnutrition likely 2/2 #9 Now on appropriate PEG feeds 3. Chronic Afib s/p RVR - 4. Chronic CM with Ejection fraction is visually estimated at 40 %. 5. Moderate to severe mitral valve regurgitation. 6. Moderate tricuspid regurgitation (may be underestimated) 7. Urinary Tract Infection - Bacteria and Yeast : + VRE and Yadira 8. Reported hx History of Oral Cancer 9. Chronic Lewy Body Dementia causing severe encephalopathy 10. Hypothyroidism 11. 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 Acute on chronic CHF: now compensated. . Patient Condition: Stable Consults * Zeyad Chua : GI * Cj Jeffery: cardio * Saeid Vivar: ID . Hx of Present Illness Patient is a 71-year-old female with severe Lewy body dementia sent from a nursing home for G-tube being dislodged. Unable to obtain additional history due to history unavailable from nursing home and patient nonverbal. According to LAURA prater , the only caregiver at the nursing home did not speak Yoruba or Romanian, and was unable to provide documentation of patient's past medical history. . Hospital Course Unfortunate 71-year-old female who is chronically encephalopathic by report from severely bloody dementia. She was sent to us after she had pulled off a G- tube. The exact duration of how long her G-tube acting out was unclear, however patient came to is very malnourished. Evaluation revealed that she had a bad urinary tract infection. This was found to be secondary to VRE as well as Yadira. She was managed aggressively for this. Patient's G-tube was replaced by the banquet server on call Dr. Chua. She's tolerating tube feeds at this time. Her hospitalization was complicated by Afib RVR and cardiology was consulted to help with mgt. She was started on low dose BB with improved rate control. Comorbidities were also aggressively managed as per Med records. Patient at this time has been evaluated and examined in detail and is assessed to be in stable condition and ready for discharge. Time spent on final evaluation and assessment, discharge planning, counselling and coordination has been >40mins. . Home Meds Reported Medications Gabapentin* (Gabapentin* Liq) 250 Mg/5 Ml Solution, 200 MG PO TID 01/31/13 Warfarin Sodium* (Coumadin*) 2 Mg Tablet, 2 MG PO DAILY 01/31/13 Olanzapine* (Zyprexa*) 5 Mg Tablet, 5 MG PO HS 01/31/13 Metoprolol (Lopressor) 50 Mg Tablet, 50 MG PO HS 01/31/13 Lisinopril* (Lisinopril*) 10 Mg Tablet, 40 MG PO DAILY 01/31/13 Levothyroxine Sodium* (Levothyroxine Sodium*) 300 Mcg Tablet, 75 MCG PO DAILY 01/31/13 Donepezil* (Aricept*) 23 Mg Tablet, 10 MG PO DAILY 01/31/13 Duloxetine Hcl* (Cymbalta*) 30 Mg Capsule.dr, 30 MG PO DAILY 01/31/13 Follow-up Plan * Finish an extra 5 days of levaquin and fluconazole * Complete 10 days of PO vanco for C-diff * Continue Coumadin and continue routine INR checks * Continue PEG feeds while monitoring for residuals. Pending Labs Laboratory Tests Test 08/15/16 06:36 White Blood Count 7.610^3/ul (4.8-10.8) Red Blood Count 3.4110^6/ul (4.20-5.40) Hemoglobin 11.5g/dl (12.0-16.0) Hematocrit 35.6% (37.0-47.0) Mean Corpuscular Volume 104.4fl (82.0-101.0) Mean Corpuscular Hemoglobin 33.7pg (29.0-33.0) Mean Corpuscular Hemoglobin Concent 32.3g/dl (32.0-37.0) Red Cell Distribution Width 13.2% (11.5-14.5) Platelet Count 49955^3/UL (140-415) Mean Platelet Volume 13.4fl (7.4-10.4) Neutrophils % 66.3% (39.0-77.0) Lymphocytes % 18.8% (15.0-51.0) Monocytes % 10.1% (0.0-11.0) Eosinophils % 4.3% (0.0-7.0) Basophils % 0.4% (0.0-2.0) Nucleated Red Blood Cells % 0.0/100WBC (0.0-0.0) Neutrophils # 5.010^3/ul (1.6-7.5) Lymphocytes # 1.410^3/ul (0.8-2.9) Monocytes # 0.810^3/ul (0.3-0.9) Eosinophils # 0.310^3/ul (0.0-0.5) Basophils # 0.010^3/ul (0.0-0.1) Nucleated Red Blood Cells # 0.010^3/ul (0.0-0.0) Sodium Level 139mmol/L (135-144) Potassium Level 3.2mmol/L (3.5-5.1) Chloride Level 100mmol/L (97-110) Carbon Dioxide Level 30mmol/L (21-31) Anion Gap 12 (8-16) Blood Urea Nitrogen 10mg/dl (7-20) Creatinine 0.46mg/dl (0.44-1.00) Glucose Level 95mg/dl (70-220) Calcium Level 8.5mg/dl (8.4-10.2) HUSSAIN LOPEZ Aug 15, 2016 14:54
[2016-08-15] MEDS ORDERED: Vancomycin Oral Syringe PO (15:29)
--- NOTE | 2016-08-15 17:25 | PN ---
Date/Time of Note Date/Time of Note DATE: 08/15/16 TIME: 17:22 Assessment/Plan VTE Prophylaxis VTE Prophylaxis Intervention: SCD's Lines/Catheters [facility] Peripheral IV Urinary Cath still in place: Yes Reason Cath still needed: urinary retention Assessment/Plan Assessment/Plan Diarrhea C positive difficile * Dysphagia * S/P PEG dislodgement 08/06/2016 * PEG reinserted 08/09/2016 * Atrial fibrillation with RVR * Dementia * Urinary tract infection * PLAN continue present management vancomycin for c difficile adequate hydration Subjective 24 Hr Interval Summary Free Text/Dictation * Course reviewed with RN * patient seen and examined * still with episodes of watery stool 5 times * C DIFFICILE DNA AMPLIFICATION Final CYTOTOXIGENIC C DIFFICILE POSITIVE (Ref Range Neg) Exam/Review of Systems Vital Signs Vitals Vital Signs Date Time Temp Pulse Resp B/P Pulse Ox O2 Delivery O2 Flow Rate FiO2 08/15/16 16:25 119 08/15/16 15:50 98.9 18 125/97 96 08/15/16 14:00 Nasal Cannula 3.0 Intake and Output 08/14/16 08/14/16 08/15/16 15:00 23:00 07:00 Intake Total 2200 ml 1520 ml Output Total 700 ml 1500 ml Balance 1500 ml 20 ml Exam Constitutional: frail Respiratory: clear to auscultation, diminished breath sounds Cardiovascular: nl pulses, regular rate and rhythm Gastrointestinal: non-tender, other (g tube in placed), soft Results Result Diagram: 08/15/16 0636 08/15/16 0636 Results 24 hrs Laboratory Tests Test 08/15/16 06:36 White Blood Count 7.6 Red Blood Count 3.41 L Hemoglobin 11.5 L Hematocrit 35.6 L Mean Corpuscular Volume 104.4 H Mean Corpuscular Hemoglobin 33.7 H Mean Corpuscular Hemoglobin Concent 32.3 Red Cell Distribution Width 13.2 Platelet Count 156 Mean Platelet Volume 13.4 H Neutrophils % 66.3 Lymphocytes % 18.8 Monocytes % 10.1 Eosinophils % 4.3 Basophils % 0.4 Nucleated Red Blood Cells % 0.0 Neutrophils # 5.0 Lymphocytes # 1.4 Monocytes # 0.8 Eosinophils # 0.3 Basophils # 0.0 Nucleated Red Blood Cells # 0.0 Sodium Level 139 Potassium Level 3.2 L Chloride Level 100 Carbon Dioxide Level 30 Anion Gap 12 Blood Urea Nitrogen 10 Creatinine 0.46 Glucose Level 95 Calcium Level 8.5 Medications Medications Current Medications Metoclopramide HCl (Reglan) 10 mg Q6H PRN IV NAUSEA AND/OR VOMITING; Start 08/06 at 05:30 Acetaminophen (Tylenol Tab) 650 mg Q6H PRN PO PAIN LEVEL 1-3 OR FEVER; Start at 05:30 Morphine Sulfate (morphine) 2 mg Q4H PRN IV SEVERE PAIN LEVEL 7-10 Last administered on 08/13/16 21:11; Admin Dose 2 MG; Start 08/06/16 at 05:30 Lorazepam (Ativan) 1 mg Q6H PRN IV AGITATION/ANXIETY Last administered on 09:39; Admin Dose 1 MG; Start 08/07/16 at 11:00 Fluconazole (Diflucan) 200 mg DAILY GTB Last administered on 08/15/16 08:51; Admin Dose 200 MG; Start 08/10/16 at 11:00 Bisoprolol Fumarate (Zebeta) 5 mg BID PO Last administered on 08/15/16 08:50; Admin Dose 5 MG; Start 08/10/16 at 14:30 Levofloxacin (Levaquin) 500 mg DAILY@06 GTB Last administered on 08/15/16 05: 33; Admin Dose 500 MG; Start 08/12/16 at 06:00 Famotidine (Pepcid) 20 mg DAILY GTB Last administered on 08/15/16 08:51; Admin Dose 20 MG; Start 08/15/16 at 09:00 Quetiapine Fumarate (Seroquel) 50 mg BID PO ; Start 08/15/16 at 21:00 Vancomycin HCl (Vancomycin Oral Syringe) 125 mg Q6 PO ; Start 08/15/16 at 18:00 ; Stop 08/25/16 at 17:59 Lactobacillus Acidophilus/ Rhamnosus (Culturelle) 1 cap BID PO ; Start 08/15/16 at 21:00; Stop 08/29/16 at 20:59 Levothyroxine Sodium (Synthroid) 75 mcg DAILY@06 PO ; Start 08/16/16 at 06:00 AGUSTIN ROSA MD Aug 15, 2016 17:25
[2016-08-15] MEDS: VANCOMYCIN HCL 250 MG/5ML POSYG PO SCH (17:54)
--- NOTE | 2016-08-15 18:04 | CONS ---
Date/Time of Note Date/Time of Note DATE: 08/15/16 TIME: 18:03 Assessment/Plan Assessment/Plan Chief Complaint/Hosp Course SUBJECTIVE: No events. No fevers. Pt is nonverbal MICROBIOLOGY: Urine culture grew VRE and Yadira albicans. INDWELLINGS: Benavides, PEG. ANTIMICROBIALS: Fluconazole and Levaquin. PHYSICAL EXAMINATION: GENERAL: Chronically ill-appearing, elderly woman in no distress. HEENT: Head atraumatic, normocephalic. Sclerae anicteric. Buccal mucosa dry. NECK: Supple, trachea midline. CHEST: Rise symmetrical. Breath sounds diminished to bases. HEART: S1, S2. ABDOMEN: Soft. Bowel sounds present. ASSESSMENT: 1. Systemic inflammatory response syndrome. 2. Polymicrobial urinary tract infection. 3. Leukocytosis, possibly reactive. 4. Recurrent Clostridium difficile colitis. 5. Dysphagia, s/p new PEG. 6. History of psychiatric problems. PLAN: Clinically unchanged, will add PO Vanco, complete abx for 5 more days. Continue present care, anti-aspiration precautions DW staff Problems: Consultation Date/Type/Reason Admit Date/Time Aug 08, 2016 at 10:14 Initial Consult Date 08/07/16 Type of Consultation: ID Exam/Review of Systems Vital Signs Vitals Vital Signs Date Time Temp Pulse Resp B/P Pulse Ox O2 Delivery O2 Flow Rate FiO2 08/15/16 16:25 119 08/15/16 15:50 98.9 18 125/97 96 08/15/16 14:00 Nasal Cannula 3.0 Intake and Output 08/14/16 08/14/16 08/15/16 15:00 23:00 07:00 Intake Total 2200 ml 1520 ml Output Total 700 ml 1500 ml Balance 1500 ml 20 ml Results Result Diagram: 08/15/16 0636 08/15/16 0636 Results 24 hrs Laboratory Tests Test 08/15/16 06:36 White Blood Count 7.6 Red Blood Count 3.41 L Hemoglobin 11.5 L Hematocrit 35.6 L Mean Corpuscular Volume 104.4 H Mean Corpuscular Hemoglobin 33.7 H Mean Corpuscular Hemoglobin Concent 32.3 Red Cell Distribution Width 13.2 Platelet Count 156 Mean Platelet Volume 13.4 H Neutrophils % 66.3 Lymphocytes % 18.8 Monocytes % 10.1 Eosinophils % 4.3 Basophils % 0.4 Nucleated Red Blood Cells % 0.0 Neutrophils # 5.0 Lymphocytes # 1.4 Monocytes # 0.8 Eosinophils # 0.3 Basophils # 0.0 Nucleated Red Blood Cells # 0.0 Sodium Level 139 Potassium Level 3.2 L Chloride Level 100 Carbon Dioxide Level 30 Anion Gap 12 Blood Urea Nitrogen 10 Creatinine 0.46 Glucose Level 95 Calcium Level 8.5 Medications Medications Current Medications Metoclopramide HCl (Reglan) 10 mg Q6H PRN IV NAUSEA AND/OR VOMITING; Start 08/06 at 05:30 Acetaminophen (Tylenol Tab) 650 mg Q6H PRN PO PAIN LEVEL 1-3 OR FEVER; Start at 05:30 Morphine Sulfate (morphine) 2 mg Q4H PRN IV SEVERE PAIN LEVEL 7-10 Last administered on 08/13/16 21:11; Admin Dose 2 MG; Start 08/06/16 at 05:30 Lorazepam (Ativan) 1 mg Q6H PRN IV AGITATION/ANXIETY Last administered on 09:39; Admin Dose 1 MG; Start 08/07/16 at 11:00 Fluconazole (Diflucan) 200 mg DAILY GTB Last administered on 08/15/16 08:51; Admin Dose 200 MG; Start 08/10/16 at 11:00 Bisoprolol Fumarate (Zebeta) 5 mg BID PO Last administered on 08/15/16 08:50; Admin Dose 5 MG; Start 08/10/16 at 14:30 Levofloxacin (Levaquin) 500 mg DAILY@06 GTB Last administered on 08/15/16 05: 33; Admin Dose 500 MG; Start 08/12/16 at 06:00 Famotidine (Pepcid) 20 mg DAILY GTB Last administered on 08/15/16 08:51; Admin Dose 20 MG; Start 08/15/16 at 09:00 Quetiapine Fumarate (Seroquel) 50 mg BID PO ; Start 08/15/16 at 21:00 Vancomycin HCl (Vancomycin Oral Syringe) 125 mg Q6 PO Last administered on 08/15 17:54; Admin Dose 125 MG; Start 08/15/16 at 18:00; Stop 08/25/16 at 17:59 Lactobacillus Acidophilus/ Rhamnosus (Culturelle) 1 cap BID PO ; Start 08/15/16 at 21:00; Stop 08/29/16 at 20:59 Levothyroxine Sodium (Synthroid) 75 mcg DAILY@06 PO ; Start 08/16/16 at 06:00 MIO TIRADO NP Aug 15, 2016 18:04
[2016-08-15] MEDS: LACTOBACILLUS RHAMNOSUS CAP PO SCH (21:09)
[2016-08-15] MEDS: L ACIDOPHIL/B LACTIS/B LONGUM CAPSULE PO SCH (21:09)
[2016-08-16] VITALS (14 sets, daily range): BP systolic 100–147; BP diastolic 54–85; PULSE 82–122; RESP 18–20
[2016-08-16] MEDS: VANCOMYCIN HCL 250 MG/5ML POSYG PO SCH ×3 (00:29→12:10)
[2016-08-16] MEDS: LEVOFLOXACIN 500 MG TAB GTB SCH (05:31)
[2016-08-16] MEDS ORDERED: LEVOTHYROXINE 75 MCG TAB PO SCH (06:00)
[2016-08-16 08:09] LABS: ADD SCAN DIFF NO
[2016-08-16 08:15] LABS: BASOPHILS % 0.4 % (0.0-2.0); EOSINOPHILS # 0.2 10^3/ul (0.0-0.5); EOSINOPHILS % 2.3 % (0.0-7.0); HEMATOCRIT 34.5 % (37.0-47.0); HEMOGLOBIN 11.5 g/dl (12.0-16.0); LYMPHOCYTES # 1.2 10^3/ul (0.8-2.9); LYMPHOCYTES % 14.8 % (15.0-51.0); MEAN CORPUSCULAR HEMOGLOBIN 34.7 pg (29.0-33.0); MEAN CORPUSCULAR HGB CONC 33.3 g/dl (32.0-37.0); MEAN CORPUSCULAR VOLUME 104.2 fl (82.0-101.0); MEAN PLATELET VOLUME 13.1 fl (7.4-10.4); MONOCYTE # 0.8 10^3/ul (0.3-0.9); MONOCYTES % 9.4 % (0.0-11.0); NEUTROPHIL # 5.9 10^3/ul (1.6-7.5); NEUTROPHILS % 72.7 % (39.0-77.0); PLATELET COUNT 156 10^3/UL (140-415); RED BLOOD COUNT 3.31 10^6/ul (4.20-5.40); RED CELL DISTRIBUTION WIDTH 12.9 % (11.5-14.5); WHITE BLOOD COUNT 8.1 10^3/ul (4.8-10.8)
[2016-08-16 08:35] LABS: CALCIUM 8.4 mg/dl (8.4-10.2); CREATININE 0.44 mg/dl (0.44-1.00); POTASSIUM 3.9 mmol/L (3.5-5.1)
[2016-08-16] MEDS: LACTOBACILLUS RHAMNOSUS CAP PO SCH (08:45)
[2016-08-16] MEDS: QUETIAPINE 25 MG TAB PO SCH (08:45)
[2016-08-16] MEDS: L ACIDOPHIL/B LACTIS/B LONGUM CAPSULE PO SCH (08:45)
[2016-08-16] MEDS: BISOPROLOL 5 MG TAB PO SCH (08:47)
[2016-08-16] MEDS: FAMOTIDINE 20 MG TAB GTB SCH (08:47)
[2016-08-16] MEDS: FLUCONAZOLE 200 MG TAB GTB SCH (08:47)
--- NOTE | 2016-08-16 14:47 | PN ---
Date/Time of Note Date/Time of Note DATE: 08/16/16 TIME: 14:44 Assessment/Plan VTE Prophylaxis VTE Prophylaxis Intervention: SCD's Lines/Catheters IV C[facility]ter Type (from [facility]): Peripheral IV Central line still needed: Yes Urinary Cath still in place: Yes Reason Cath still needed: urinary retention Assessment/Plan Assessment/Plan Diarrhea C positive difficile * Dysphagia * S/P PEG dislodgement 08/06/2016 * PEG reinserted 08/09/2016 * Atrial fibrillation with RVR controlled * Dementia * Urinary tract infection controlled * PLAN continue present management vancomycin for c difficile adequate hydration Subjective 24 Hr Interval Summary Free Text/Dictation * Course reviewed with RN * patient seen and examined * still with episodes of diarrhea 4x * tolerating tube feeding Exam/Review of Systems Vital Signs Vitals Vital Signs Date Time Temp Pulse Resp B/P Pulse Ox O2 Delivery O2 Flow Rate FiO2 08/16/16 12:09 86 08/16/16 11:31 98.0 19 108/59 94 08/16/16 10:00 Nasal Cannula 3.0 Intake and Output 08/15/16 08/15/16 08/16/16 15:00 23:00 07:00 Intake Total 400 ml 1110 ml Output Total 840 ml Balance 400 ml 270 ml Exam Constitutional: frail, non-verbal Head: normocephalic Neck: non-tender, supple Respiratory: clear to auscultation, diminished breath sounds, normal air movement Cardiovascular: nl pulses, regular rate and rhythm Gastrointestinal: bowel sounds, non-tender, other (G tube in placed no leak), soft, No rebound or guarding Extremities: normal pulses Results Result Diagram: 08/16/16 0720 08/16/16 0720 Results 24 hrs Laboratory Tests Test 08/16/16 07:20 White Blood Count 8.1 Red Blood Count 3.31 L Hemoglobin 11.5 L Hematocrit 34.5 L Mean Corpuscular Volume 104.2 H Mean Corpuscular Hemoglobin 34.7 H Mean Corpuscular Hemoglobin Concent 33.3 Red Cell Distribution Width 12.9 Platelet Count 156 Mean Platelet Volume 13.1 H Neutrophils % 72.7 Lymphocytes % 14.8 L Monocytes % 9.4 Eosinophils % 2.3 Basophils % 0.4 Nucleated Red Blood Cells % 0.0 Neutrophils # 5.9 Lymphocytes # 1.2 Monocytes # 0.8 Eosinophils # 0.2 Basophils # 0.0 Nucleated Red Blood Cells # 0.0 Sodium Level 136 Potassium Level 3.9 Chloride Level 102 Carbon Dioxide Level 30 Anion Gap 8 Blood Urea Nitrogen 11 Creatinine 0.44 Glucose Level 109 Calcium Level 8.4 Medications Medications Current Medications Metoclopramide HCl (Reglan) 10 mg Q6H PRN IV NAUSEA AND/OR VOMITING; Start 08/06 at 05:30 Acetaminophen (Tylenol Tab) 650 mg Q6H PRN PO PAIN LEVEL 1-3 OR FEVER; Start at 05:30 Morphine Sulfate (morphine) 2 mg Q4H PRN IV SEVERE PAIN LEVEL 7-10 Last administered on 08/13/16 21:11; Admin Dose 2 MG; Start 08/06/16 at 05:30 Lorazepam (Ativan) 1 mg Q6H PRN IV AGITATION/ANXIETY Last administered on 09:39; Admin Dose 1 MG; Start 08/07/16 at 11:00 Fluconazole (Diflucan) 200 mg DAILY GTB Last administered on 08/16/16 08:47; Admin Dose 200 MG; Start 08/10/16 at 11:00 Bisoprolol Fumarate (Zebeta) 5 mg BID PO Last administered on 08/16/16 08:47; Admin Dose 5 MG; Start 08/10/16 at 14:30 Levofloxacin (Levaquin) 500 mg DAILY@06 GTB Last administered on 08/16/16 05: 31; Admin Dose 500 MG; Start 08/12/16 at 06:00 Famotidine (Pepcid) 20 mg DAILY GTB Last administered on 08/16/16 08:47; Admin Dose 20 MG; Start 08/15/16 at 09:00 Quetiapine Fumarate (Seroquel) 50 mg BID PO Last administered on 08/16/16 08: 45; Admin Dose 50 MG; Start 08/15/16 at 21:00 Vancomycin HCl (Vancomycin Oral Syringe) 125 mg Q6 PO Last administered on 08/16 12:10; Admin Dose 125 MG; Start 08/15/16 at 18:00; Stop 08/25/16 at 17:59 Lactobacillus Acidophilus/ Rhamnosus (Culturelle) 1 cap BID PO Last administered on 08/16/16 08:45; Admin Dose 1 CAP; Start 08/15/16 at 21:00; Stop 08/29/16 at 20:59 Levothyroxine Sodium (Synthroid) 75 mcg DAILY@06 PO Last administered on 05:31; Admin Dose 75 MCG; Start 08/16/16 at 06:00 Lactobacillus Acidophilus (Florajen3 Capsule) 1 each BID PO Last administered on 08/16/16 08:45; Admin Dose 1 EACH; Start 08/15/16 at 21:00 AGUSTIN ROSA MD Aug 16, 2016 14:47
--- NOTE | 2016-08-16 14:58 | PDOCDIS ---
Discharge Instructions DIAGNOSIS Discharge Diagnosis: Dysphagia. UTI. C. difficile colitis. CONDITION Patient Condition: Stable HOME CARE INSTRUCTIONS: Special Diet: GTUBE OTHER ORDERS: Other Orders: 1. Medications as per medication reconciliation. 2. Continue the current tube feedings. MEHDI RAMIREZ NP Aug 16, 2016 14:58
--- NOTE | 2016-08-16 17:15 | DS ---
DATE OF ADMISSION: 08/08/2016 DATE OF DISCHARGE: 08/16/2016 FINAL DIAGNOSES: 1. Dislodged G-tube previously placed. 2. Protein calorie malnutrition. 3. Chronic atrial fibrillation. 4. Cardiomyopathy with ejection fraction of 40%. 5. Moderate to severe mitral valve regurgitation. 6. Moderate tricuspid regurgitation. 7. Urinary tract infection with vancomycin-resistant Enterococcus and Yadira. 8. Reported history of oral cancer. 9. Clostridium difficile colitis. 10. Chronic Lewy body dementia causing severe encephalopathy. 11. Hypothyroidism. 12. Megaloblastic anemia. 13. Acute on chronic congestive heart failure. Systolic dysfunction. Compensated. 14. Chronic bedridden status. Please see the complete discharge summary dictated by Dr. Miguel Portillo on 08/15/2016. The patient's discharge was held on 08/15/2016 because of nonclinical reasons. The patient will be discharged to an assisted living facility today. Again, please see the complete discharge summary d ictated by Dr. Portillo on 08/15/2016. The patient's condition remained unchanged. Dictated By: MEHDI RAMIREZ RODENT EXTERMINATOR for SREE MONZON MD, AM/ROSA Conf#: [id number] DID#: [id number]
--- NOTE | 2016-08-16 17:19 | CONS ---
Date/Time of Note Date/Time of Note DATE: 08/16/16 TIME: 17:18 Assessment/Plan Assessment/Plan Chief Complaint/Hosp Course SUBJECTIVE: No events. Pt is nonverbal MICROBIOLOGY: Urine culture grew VRE and Yadira albicans. INDWELLINGS: Benavides, PEG. ANTIMICROBIALS: Fluconazole, PO Vanco, Levaquin. PHYSICAL EXAMINATION: GENERAL: Chronically ill-appearing, elderly woman in no distress. HEENT: Head atraumatic, normocephalic. Sclerae anicteric. Buccal mucosa dry. NECK: Supple, trachea midline. CHEST: Rise symmetrical. Breath sounds diminished to bases. HEART: S1, S2. ABDOMEN: Soft. Bowel sounds present. ASSESSMENT: 1. Systemic inflammatory response syndrome. 2. Polymicrobial urinary tract infection. 3. Leukocytosis, possibly reactive. 4. Recurrent Clostridium difficile colitis. 5. Dysphagia, s/p new PEG. 6. History of psychiatric problems. PLAN: Clinically unchanged, complete abx for 4 more days. Continue PO Vanco for 2 weeks, anti-aspiration precautions [facility] staff Problems: Consultation Date/Type/Reason Admit Date/Time Aug 08, 2016 at 10:14 Initial Consult Date 08/07/16 Type of Consultation: ID Exam/Review of Systems Vital Signs Vitals Vital Signs Date Time Temp Pulse Resp B/P Pulse Ox O2 Delivery O2 Flow Rate FiO2 08/16/16 16:13 118 08/16/16 15:39 97.0 19 100/54 95 08/16/16 14:00 Nasal Cannula 3.0 Intake and Output 08/15/16 08/15/16 08/16/16 15:00 23:00 07:00 Intake Total 400 ml 1110 ml Output Total 840 ml Balance 400 ml 270 ml Results Result Diagram: 08/16/16 0720 08/16/16 0720 Results 24 hrs Laboratory Tests Test 08/16/16 07:20 White Blood Count 8.1 Red Blood Count 3.31 L Hemoglobin 11.5 L Hematocrit 34.5 L Mean Corpuscular Volume 104.2 H Mean Corpuscular Hemoglobin 34.7 H Mean Corpuscular Hemoglobin Concent 33.3 Red Cell Distribution Width 12.9 Platelet Count 156 Mean Platelet Volume 13.1 H Neutrophils % 72.7 Lymphocytes % 14.8 L Monocytes % 9.4 Eosinophils % 2.3 Basophils % 0.4 Nucleated Red Blood Cells % 0.0 Neutrophils # 5.9 Lymphocytes # 1.2 Monocytes # 0.8 Eosinophils # 0.2 Basophils # 0.0 Nucleated Red Blood Cells # 0.0 Sodium Level 136 Potassium Level 3.9 Chloride Level 102 Carbon Dioxide Level 30 Anion Gap 8 Blood Urea Nitrogen 11 Creatinine 0.44 Glucose Level 109 Calcium Level 8.4 Medications Medications Current Medications Metoclopramide HCl (Reglan) 10 mg Q6H PRN IV NAUSEA AND/OR VOMITING; Start 08/06 at 05:30 Acetaminophen (Tylenol Tab) 650 mg Q6H PRN PO PAIN LEVEL 1-3 OR FEVER; Start at 05:30 Morphine Sulfate (morphine) 2 mg Q4H PRN IV SEVERE PAIN LEVEL 7-10 Last administered on 08/13/16 21:11; Admin Dose 2 MG; Start 08/06/16 at 05:30 Lorazepam (Ativan) 1 mg Q6H PRN IV AGITATION/ANXIETY Last administered on 09:39; Admin Dose 1 MG; Start 08/07/16 at 11:00 Fluconazole (Diflucan) 200 mg DAILY GTB Last administered on 08/16/16 08:47; Admin Dose 200 MG; Start 08/10/16 at 11:00 Bisoprolol Fumarate (Zebeta) 5 mg BID PO Last administered on 08/16/16 08:47; Admin Dose 5 MG; Start 08/10/16 at 14:30 Levofloxacin (Levaquin) 500 mg DAILY@06 GTB Last administered on 08/16/16 05: 31; Admin Dose 500 MG; Start 08/12/16 at 06:00 Famotidine (Pepcid) 20 mg DAILY GTB Last administered on 08/16/16 08:47; Admin Dose 20 MG; Start 08/15/16 at 09:00 Quetiapine Fumarate (Seroquel) 50 mg BID PO Last administered on 08/16/16 08: 45; Admin Dose 50 MG; Start 08/15/16 at 21:00 Vancomycin HCl (Vancomycin Oral Syringe) 125 mg Q6 PO Last administered on 08/16 12:10; Admin Dose 125 MG; Start 08/15/16 at 18:00; Stop 08/25/16 at 17:59 Lactobacillus Acidophilus/ Rhamnosus (Culturelle) 1 cap BID PO Last administered on 08/16/16 08:45; Admin Dose 1 CAP; Start 08/15/16 at 21:00; Stop 08/29/16 at 20:59 Levothyroxine Sodium (Synthroid) 75 mcg DAILY@06 PO Last administered on 05:31; Admin Dose 75 MCG; Start 08/16/16 at 06:00 Lactobacillus Acidophilus (Florajen3 Capsule) 1 each BID PO Last administered on 08/16/16 08:45; Admin Dose 1 EACH; Start 08/15/16 at 21:00 MIO TIRADO NP Aug 16, 2016 17:19
== END 2016-08-16 17:13 | DRG 640 ==
LOC: E/R 22:44 → PP2 08-06 02:54 → TEL 08-06 22:13 → OBSVTOIN 08-08 10:14 → TEL 08-09 11:11
PROVIDERS: ADMIT Family Medicine; ATTEND Family Medicine
PROC: 0DH63UZ Insertion of Feeding Device into Stomach, Percutaneous Approach (ICD-10-PCS; principal; 2016-08-09 20:00)
DX: E46 Unspecified protein-calorie malnutrition (principal); I50.23 Acute on chronic systolic (congestive) heart failure; I42.9 Cardiomyopathy, unspecified; A04.7 Enterocolitis due to Clostridium difficile; G31.83 Neurocognitive disorder with Lewy bodies; N39.0 Urinary tract infection, site not specified; I48.2 Chronic atrial fibrillation; D53.1 Other megaloblastic anemias, not elsewhere classified; B37.49 Other urogenital candidiasis; I10 Essential (primary) hypertension; Z43.1 Encounter for attention to gastrostomy; Z68.1 Body mass index [BMI] 19.9 or less, adult; B95.2 Enterococcus as the cause of diseases classified elsewhere; E03.9 Hypothyroidism, unspecified; R13.10 Dysphagia, unspecified; I08.1 Rheumatic disorders of both mitral and tricuspid valves; F02.80 Dementia in other diseases classified elsewhere, unspecified severity, without behavioral disturbance, psychotic disturbance, mood disturbance, and anxiety; Z16.21 Resistance to vancomycin; Z85.818 Personal history of malignant neoplasm of other sites of lip, oral cavity, and pharynx; Z74.01 Bed confinement status
CPT/HCPCS: 36415; 36600; 71010; 80048; 80061; 81001; 81003; 82607; 82652; 82803; 82962; 83735; 83880; 84100; 84134; 84443; 84484; 85025; 85378; 85610; 85730; 87045; 87075; 87086; 92610; 93005; 93306; 96374; 96375; G0378; J0690; J0696; J1630; J1956; J2060; J2270; J3010; J3480; J7042

== ENCOUNTER 2016-08-17 00:50 | Emergency (ER) | payer MEDICARE, OTHER ==
[~2016-08-17] VITALS: Ht 162.6 cm; Wt 75.0 kg
[~2016-08-17 00:50] MED LIST changes: +BISO5TAB21 PO; -DULO30CA45 PO; +FAMO20TA18 GTB; +FLUC200T36 GTB; -GABA250S2 PO; -LEVO300T5 PO; +LEVO500T72 GTB; +LEVO75TA5 PO; -LISI10TA2 PO; -METO-53 PO; -OLAN5TAB5 PO; +QUET25TA33 PO; +Vancomycin Oral Syringe PO; -WARF2TAB PO
--- NOTE | 2016-08-17 02:08 | ERD ---
ER Documentation Chief Complaint Date/Time DATE: 08/17/16 TIME: 02:05 Chief Complaint HPI This 71-year-old female presents to the emergency room for evaluation of a "possible virus". History is unstable from this patient secondary to her clinical condition. This patient is a hospice patient and was seen at her facility today. There was concern amongst the nursing staff because this patient could have a virus. This patient does have a history of C. difficile colitis with mild contact precautions. She has been afebrile, no vomiting, and [facility]. ROS All systems reviewed and are negative except as per history of present illness. Medications Home Meds Active Scripts [Vancomycin Oral Syringe] 50 MG/ML SOLN No Conflict Check, 125 MG PO Q6 for 10 Days Prov:JOHNRONDENA . 08/15/16 Bisoprolol Fumarate* (Bisoprolol Fumarate*) 5 Mg Tablet, 5 MG PO BID for 30 Days , [facility] Levothyroxine Sodium* (Levothyroxine Sodium*) 75 Mcg Tablet, 75 MCG PO BEFORE BREAKFAST, #30 TAB Prov:JOHNROSSANA ConnollyLandon 08/15/16 Famotidine* (Famotidine*) 20 Mg Tablet, 20 MG GTB DAILY for 30 Days, TAB [facility] 08/[facility]/16 Quetiapine Fumarate* (Quetiapine Fumarate*) 25 Mg Tablet, 50 MG PO BID for 30 Days, TAB [facility] 08/15/16 Levofloxacin* (Levaquin*) 500 Mg Tablet, 500 MG GTB DAILY@06 for 5 Days, TAB Prov:ROSSANA LOPEZLandon 08/15/16 Fluconazole* (Diflucan*) 200 Mg Tablet, 200 MG GTB DAILY for 5 Days, TAB Prov:JOHNROSSANA ConnollyLandon . 08/15/16 Reported Medications Donepezil* (Aricept*) 23 Mg Tablet, 10 MG PO DAILY 01/31/13 Discontinued Reported Medications Olanzapine* (Zyprexa*) 5 Mg Tablet, 5 MG PO HS 01/31/13 Gabapentin* (Gabapentin* Liq) 250 Mg/5 Ml Solution, 200 MG PO TID 01/31/13 Warfarin Sodium* (Coumadin*) 2 Mg Tablet, 2 MG PO DAILY 01/31/13 Metoprolol (Lopressor) 50 Mg Tablet, 50 MG PO HS 01/31/13 Lisinopril* (Lisinopril*) 10 Mg Tablet, 40 MG PO DAILY 01/31/13 Levothyroxine Sodium* (Levothyroxine Sodium*) 300 Mcg Tablet, 75 MCG PO DAILY 01/31/13 Duloxetine Hcl* (Cymbalta*) 30 Mg Capsule.dr, 30 MG PO DAILY 01/31/13 Allergies Allergies: Coded Allergies: No Known Allergy (Unverified , 02/02/13) PMhx/Soc History of Surgery: Yes (Cholecystectomy, angioplasty) Hx Neurological Disorder: Yes (Dementia, Alzhimers) Hx Respiratory Disorders: No Hx Cardiac Disorders: Yes (Afib,) Hx Psychiatric Problems: Yes (Psychosis, depression) Hx Miscellaneous Medical Probl: No Hx Alcohol Use: No Hx Substance Use: No Hx Tobacco Use: No Physical Exam Vitals Vital Signs Date Time Temp Pulse Resp B/P Pulse Ox O2 Delivery O2 Flow Rate FiO2 08/17/16 02:15 50 120/78 100 Nasal Cannula 2.0 Physical Exam Const: Cachectic appearing elderly female, no acute distress Head: Atraumatic Eyes: Normal Conjunctiva ENT: Dry mucous membranes, normal External Ears, Nose and Mouth. Neck: Full range of motion..~ No meningismus. Resp: Clear to auscultation bilaterally Cardio: Regular rate and rhythm, no murmurs Abd: PEG tube in place, soft, non tender, non distended. Normal bowel sounds Skin: No petechiae or rashes Back: No midline or flank tenderness Ext: No cyanosis, or edema Neur: Awake and alert Psych: Normal Mood and Affect Procedures/MDM This 71-year-old female presents to the emergency room for evaluation of a possible virus. This patient has been afebrile, no acute distress and is on hospice. We have contacted the penitentiary and they stated that they "did not know if C. difficile colitis was a virus or not". They were instructed that this patient needs contact precautions and handwashing was encouraged after interaction with the patient. This patient is on hospice again, and has no signs of decompensation at this time. This patient [facility] be [facility] Departure Diagnosis: Primary Impression: Encounter for medical screening examination Additional Impression: History of Clostridium difficile colitis Condition: JEWEL Leonard DO Aug 17, 2016 02:08
[2016-08-17 02:15] VITALS: Ht 162.6 cm; Wt 75.0 kg
[2016-08-17 03:30] VITALS: BP 100/69; PULSE 52; RESP 18; TEMP 98.3
== END 2016-08-17 04:14 | disposition home or self-care (01) ==
LOC: E/R 00:50
DX: Z11.59 Encounter for screening for other viral diseases (principal); G30.9 Alzheimer's disease, unspecified; R40.2142 Coma scale, eyes open, spontaneous, at arrival to emergency department; I48.91 Unspecified atrial fibrillation; Z86.19 Personal history of other infectious and parasitic diseases
CPT/HCPCS: 93005